=== PATIENT | male | born 1945 | race Caucasian/White ===

== ENCOUNTER 2022-08-13 11:06 | Outpatient (CLI) | payer MEDICARE, BC, SELFPAY | END 2022-08-13 11:07 | disposition home or self-care (01) | PROVIDERS: PCP Family Medicine; Visit Provider Family Medicine | DX: E11.9 Type 2 diabetes mellitus without complications (principal); I10 Essential (primary) hypertension; E78.5 Hyperlipidemia, unspecified; F41.9 Anxiety disorder, unspecified; E66.9 Obesity, unspecified; Z12.5 Encounter for screening for malignant neoplasm of prostate; Z71.89 Other specified counseling | CPT/HCPCS: 80053; 80061; 82043; 82570; 84153 ==

== ENCOUNTER 2023-03-21 13:56 | Outpatient (CLI) | payer MEDICARE, BC, SELFPAY | END 2023-03-21 13:57 | disposition home or self-care (01) | LOC: NFLDREF 03-24 17:19 | PROVIDERS: PCP Family Medicine; Referring Provider Family Medicine; Visit Provider Family Medicine | DX: E11.9 Type 2 diabetes mellitus without complications (principal); E78.5 Hyperlipidemia, unspecified; F41.9 Anxiety disorder, unspecified; M54.9 Dorsalgia, unspecified; Z98.1 Arthrodesis status; Z23 Encounter for immunization; K21.9 Gastro-esophageal reflux disease without esophagitis | CPT/HCPCS: 80048; 80061 ==

== ENCOUNTER 2023-04-22 14:45 | Outpatient (RCR) | payer MEDICARE, BC, SELFPAY ==
--- NOTE | 2023-03-26 14:25 | PT.OPE ---
PT [facility] Outpatient Eval PT [facility] Outpatient Eval Start: 03/26/23 12:36 Freq: Status: Active Protocol: Document 03/26/23 12:36 LSL (Rec: 03/26/23 14:22 LSL [id number]) E-signed By Fozia Dugan PT Physical Therapy Outpatient Evaluation Insurance Information Recert Due Date 06/14/23 Insurance Name Medicare B,Blue Cross/Blue Shield Medical Diagnosis back pain Treating Diagnosis weakness, pain, impaired balance Referring MD Keith Subjective Subjective Pt. reports over the past 1-2 years he's been having aching in the low back, although within the past 6 months began to have sciatica into L leg to posterior knee. Occurs more when I am upright walking, bending or standing in place. This past weekend I was doing repeated stairs and it really triggered the pain that evening and into the night. Avoiding those activities decreases pain and when I was flared up Saturday I took a couple methyl prednisone to help decrease pain. I had them left over from past issues. 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 Pain Comments 1-2/10 best, 8-9/10 worst Date of Last Physician Visit 03/25/23 Current Work Status Retired Preferred Name Omari Precautions Treatment Precautions/Contraindications history of Lumbar fusion 2019 L3-5 (Barrie Maldonado MD), broke hip December a couple years ago and was treated with immobilization, cervical fusion summer 2018 Weight Bearing Status Full Weight Bearing Therapy Limitations/Systems Review Cognition Objective Range of Motion AROM flexion 75%, extension 15 % with L LB into glut pain, B LF 15% PROM B SKC WNL without pain, DKC deferred due to body type Strength Trunk - upper abdominals 3/5 with L HS pain, deferred further testing, lower abdominals 1/5, extensors LE - L DF 4/5, L hip extension 4/5, R 5/5, L hip abduction 4 +/5, R 4/5 in available ROM however unable to lift from neutral independently Palpation L glut med and piriformis negative, tender and swollen L L5-S1 Balance & Gait hip ER, midfoot strike with slight LOB on turns Balance - B impaired SLB with 2-5 second ability with light to moderate UE assist Posture decreased lordosis, L laterally flexed Sensation/Reflexes Reflexes L patellar 1/3, all others B absent SLR B negative Other/Pertinent Objective BP - home unit 130/95, clinic unit 141/91 Functional Test Performed & Score bridge - able to complete with some discomfort L LB Assessment Assessment/Impression Pt. is a 77 y/o male who presents with L5 sciatica with mild swelling about L L5-S1, decreased ROM, weakness in the posterior hip and impaired balance. Additionally he has some difficulty multi-tasking and his processing seems a bit slow. 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 He will benefit from PT to learn a good HEP, improve his strength and mobility with therex, improve his balance through NM re-ed, and we will use a combination of manual therapy and modalities to assist with alleviation of pain and swelling. Primary Functional Limitations balance, turning while ambulating, stairs, transitional movements, prolonged walking/standing Plan of Care Rehabilitation Potential Good Physical Therapy Goals SHORT TERM GOALS: (3-4 weeks) 1. Pt. to report decreased pain into the left leg in either distance or intensity. 2. Pt. to have less palpable swelling L L5-S1. 3. Pt. able to complete bridge with pain less than 2/10. BUILDING CONSULTANT GOALS: (4-12 weeks) 1. Pt. to have 5/5 glut strength to improve tolerance to standing and stairs. 2. Pt. to demonstrate improved SLB to 10+ seconds. 3. Pt. able to turn without LOB at normal gait speed. 4. Pt. able to walk for 30' without pain increasing from baseline. Coordination/Communication With Referral Source Treatment Plan/Direct Interventions Electrical Stimulation,Joint Mobilization,Manual Therapy, Neuromuscular Re-ed,Self-Care/ Home Management,Therapeutic Exercises Frequency/Duration 2x/week 4 weeks then reassess Patient Will Be Discharged From Therapy Completion of LTG(s) Evaluation Billing Untimed Code Treatment Minutes 40 Complexity Moderate Certification Information Initial Certification Date 03/26/23 Ending Certification Date 06/14/23 Provider Signature Shows Agreement With POC & Medical Necessity Physician Signature & Date Requested Please Sign/Date Here Physician Comment/Change : Physician NPI Number #
== END 2023-06-26 07:43 | disposition home or self-care (01) ==
PROVIDERS: PCP Family Medicine; Visit Provider Family Medicine
DX: M54.9 Dorsalgia, unspecified (principal); Z98.1 Arthrodesis status; Z51.89 Encounter for other specified aftercare
CPT/HCPCS: 97110; 97140; 97162

== ENCOUNTER 2023-05-10 13:22 | Outpatient (CLI) | payer MEDICARE, BC, SELFPAY ==
--- NOTE | 2023-05-10 13:45 | CRLHL7_ITS ---
For Patients: As a result of the Century Cures Act, medical imaging exams and procedure reports are released immediately into your electronic medical record. You may view this report before your referring provider. If you have questions, please contact your health care provider. INDICATION: Low back pain. TECHNIQUE : Lumbar spine MRI without contrast. The following sequences were obtained: Sagittal T1, T2 weighted and STIR sequences. Axial T1 and T2 weighted sequences. COMPARISON: Lumbar spine radiographs from 11/19/2022. FINDINGS : Five lumbar type vertebral bodies, with the last fully formed disc space designated as L5-S1. Accentuated lower lumbar lordosis. Mild upper lumbar levoconvex curvature. Interbody osseous fusion at L3-4/L4-5. Dorsal lateral instrumented fusion also at L3 through L5. Decompressive posterior element resections at L3 through S1. No acute fractures. L4 hemangioma. Lower cord/conus signal is normal. The conus terminates at a normal location. No intradural lesion. No extraspinal soft tissue abnormalities. Discs/Endplates: Advanced disc height loss/disc desiccation and endplate remodeling at L1-2 centrally/on the right and L2-3 on the right. Mild to moderate disc height loss and disc desiccation elsewhere. Findings at individual levels as follows: T11-12: Trace retrolisthesis. Mild disc bulge with overlying osteophytic ridging, asymmetric to the right. Bilateral low-grade facet arthrosis. No spinal canal or neural foraminal stenosis. T12-L1: Trace anterolisthesis. Mild disc bulge. Bilateral facet arthrosis. Mild spinal canal stenosis and mild to moderate neural foraminal stenosis. No left neural foraminal stenosis. L1-2: Trace anterolisthesis. Mild disc bulge with overlying osteophytic ridging, asymmetric to the right. A superimposed 4 millimeter right dorsal lateral protrusion/osteophyte slightly impinges the traversing right L2 nerve root. Bilateral low-grade facet arthrosis. Mild right neural foraminal stenosis. No left neural foraminal stenosis or spinal canal stenosis. L2-3: Mild disc bulge with a superimposed shallow left central disc extrusion with slight cranial migration. Bilateral facet arthrosis. Mild spinal canal stenosis. No neural foraminal stenosis. L3-4: Postop changes. Spinal canal is decompressed dorsally. Residual dorsal disc osteophyte minimally flattens the thecal sac. Bilateral facet arthrosis with fusion along the facets. Mild bilateral foraminal stenosis. L4-5: Postop changes. Spinal canal is decompressed dorsally. Trace retrolisthesis. Residual dorsal disc osteophyte minimally flattens the thecal sac. Bilateral facet arthrosis. Mild right and moderate left neural foraminal stenosis. L5-S1: Trace retrolisthesis. Mild disc bulge with overlying osteophytic ridging, asymmetric to the left. Bilateral facet arthrosis with small facet joint effusions. Mild to moderate right and moderately advanced left neural foraminal stenosis with mild impingement of the exiting left L5 nerve root. No spinal canal stenosis. Imaged SI joints: Bilateral arthrosis. Imaged sacrum: Within normal limits. IMPRESSION: 1. Postsurgical changes of L3 through L5 combined interbody/dorsal lateral fusion and decompressive posterior element resections. Spinal canal is patent at the operative levels. 2. At L1-2, a right dorsal lateral protrusion/osteophyte slightly impinges the traversing right L2 nerve root. 3. At L4-5, moderate left neural foraminal stenosis. 4. At L5-S1, moderately advanced left neural foraminal stenosis with mild impingement of the exiting left L5 nerve root. 5. Mild upper lumbar degenerative levoconvex curvature. Dictated by Thomas Espinoza MD @ 05/13/2023 9:29:09 AM (Electronically Signed)
== END 2023-05-10 13:23 | disposition home or self-care (01) ==
PROVIDERS: PCP Family Medicine; Visit Provider Family Medicine
DX: M54.10 Radiculopathy, site unspecified (principal); M51.26 Other intervertebral disc displacement, lumbar region; M48.07 Spinal stenosis, lumbosacral region; Z98.1 Arthrodesis status
CPT/HCPCS: 72148

== ENCOUNTER 2023-05-16 11:46 | Outpatient (CLI) | payer MEDICARE, BC, SELFPAY | END 2023-05-16 11:47 | disposition home or self-care (01) | LOC: LKVREF 11:47 | PROVIDERS: PCP Family Medicine; Visit Provider Family Medicine | DX: R53.83 Other fatigue (principal); I10 Essential (primary) hypertension | CPT/HCPCS: 84270; 84402; 84403 ==

== ENCOUNTER 2023-07-16 09:49 | Outpatient (CLI) | payer MEDICARE, BC, SELFPAY | END 2023-07-16 09:50 | disposition home or self-care (01) | LOC: INJ CL 09:50 | PROVIDERS: PCP Family Medicine; Visit Provider Family Medicine | DX: M54.16 Radiculopathy, lumbar region (principal); M47.816 Spondylosis without myelopathy or radiculopathy, lumbar region | CPT/HCPCS: 64483; J1100; Q9966 ==

== ENCOUNTER 2023-08-20 10:41 | Outpatient (CLI) | payer MEDICARE, BC, SELFPAY | END 2023-08-20 10:42 | disposition home or self-care (01) | LOC: INJ CL 10:41 | PROVIDERS: PCP Family Medicine; Visit Provider Family Medicine | DX: M47.816 Spondylosis without myelopathy or radiculopathy, lumbar region (principal) | CPT/HCPCS: 64493; J0702; Q9966 ==

== ENCOUNTER 2023-11-22 09:52 | Outpatient (CLI) | payer MEDICARE, BC, SELFPAY ==
--- OUTSIDE RECORDS SUMMARY | 2023-11-22 09:58 | XMS_ITS | Clinical Summary ---
Author Organization [facility] Address [place], [place] [address] Care Team Providers Care Online Communications Specialist Name Role Phone Saba Jackson MD Primary Care Provider [phone] Allergies No known active allergies Medications Medication Sig Dispensed Refills Start Date End Date Status sertraline (ZOLOFT) 100 mg tablet Take 1 1/2 tabs orally once a day 0 10/01/2012 Active atorvastatin (LIPITOR) 10 mg tablet Take 1 tablet by mouth once daily. 0 10/01/2012 Active tamsulosin (FLOMAX) 0.4 mg capsule Take 1 capsule by mouth once daily after a meal. 0 10/01/2012 Active buPROPion (WELLBUTRIN SR) 100 mg Sustained-Release tablet Take one tablet by mouth every day 0 10/01/2012 Active lisinopril (PRINIVIL; ZESTRIL) 20 mg tablet Take 1 tablet by mouth once daily. 0 10/01/2012 Active rizatriptan (MAXALT) 10 mg tablet Take 1 tablet by mouth every 2 hours if needed for Migraine. Max dose: 30mg per 24 hrs. 0 10/01/2012 Active omeprazole (PRILOSEC) 20 mg Delayed-Release capsule Take 1 capsule by mouth once daily. 0 01/02/2018 Active finasteride (PROSCAR) 5 mg tablet Take 5 mg by mouth every morning. Active sennosides-docusat e, 8.6-50 mg, (SENNA LAXATIVE-STOOL SOFTENER) 8.6-50 mg tablet Take 1 tablet by mouth 2 times daily. Active WalkerIndications: Open displaced fracture of right acetabulum with routine healing, unspecified portion of acetabulum, subsequent encounter Rolling Walker for home use. 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 30 tablet 01/05/2018 Active aspirin-acetaminop hen-caffeine, 250-250-65 mg, (EXCEDRIN) 250-250-65 mg tablet Max acetaminophen dose: 4000mg in 24 hrs. 0 01/06/2018 Active oxyCODONE (ROXICODONE) 5 mg immediate release tabletIndications: Pain Take 1-2 tablets by mouth every 4 hours if needed 15 tablet 01/06/2018 Active enoxaparin (LOVENOX) 40 mg/0.4 mL injectionIndicatio ns:Closed fracture of right hip with routine healing, subsequent encounter Inject 40 mg subcutaneous once daily. 17 Syringe 01/06/2018 Active wheelchairIndicati ons:Closed nondisplaced fracture of right acetabulum with routine healing, unspecified portion of acetabulum, subsequent encounter,Gait instability Wheelchair: Standard with leg rests: (Swing away) and seat cushion. Length of need: 99 months 1 Device 01/06/2018 Active methylPREDNISolone (Medrol, Jose Daniel,) 4 mg tabletIndications: Lumbar radiculopathy Take by mouth as instructed per packaging. 21 Tablet 10/17/2023 Active HYDROcodone-acetam inophen ([place]) (5-325 mg/tablet)Indicati ons:Lumbar radiculopathy Take 1 Tablet by mouth 3 times daily if needed for Pain. Max acetaminophen dose: 4000mg in 24 hrs. 24 Tablet 10/30/2023 Active oxyCODONE (ROXICODONE) 5 mg immediate release tabletIndications: Lumbar radiculopathy,Lumb ar facet arthropathy,S/P lumbar fusion,Lumbar foraminal stenosis Take 1 Tablet (5 mg) by mouth every 4 hours if needed for Pain. 36 Tablet 11/18/2023 Active HYDROcodone-acetam inophen ([place]) (5-325 mg/tablet)Indicati ons:Lumbar radiculopathy Take 1 Tablet by mouth 3 times daily if needed for Pain. Max acetaminophen dose: 4000mg in 24 hrs. 24 Tablet 10/11/2023 10/30/19 24 Discontinu ed(Reorder (E-cancel not sent)) oxyCODONE (ROXICODONE) 5 mg immediate release tabletIndications: Lumbar radiculopathy,Lumb ar facet arthropathy,S/P lumbar fusion,Lumbar foraminal stenosis Take 1 Tablet (5 mg) by mouth every 4 hours if needed for Pain. 36 Tablet 11/06/2023 11/18/19 24 Discontinu ed(Reorder (E-cancel not sent)) Active Problems Problem Noted Date Diagnosed Date Chronic right-sided low back pain without sciati ca 01/06/2018 ACP (advance care planning) 01/05/2018 Overview: Patient has identified Health Care Agent(s): No Add Health Care Agents: No Patient has Advance Care Plan Documents (Health Care Directive, POLST): Yes Advance Care Plan Documents: POLST Form Patient has identified Specific Treatment Preferences: Yes How have preferences been verified: POLST Specific Treatment Preferences: a.) Code Status: DNR/ Do Not Attempt Resuscitation - Allow a Natural b.) Goals of Treatment: iii. Comfort-Focused Treatment (Allow Natural ): Relieve pain and suffering through the use of any medication by any route, positioning, wound care and other measures. Use oxygen, suction and manual treatment of airway obstruction as needed for comfort. Patient prefers no transfer to hospital for life-sustaining treatments. Transfer if comfort needs cannot be met in current location. TREATMENT PLAN: Maximize comfort through symptom management. Closed nondisplaced fracture of right acetabulum 01/03/2018 Hypertension 01/03/2018 Benign prostatic hyperplasia 01/03/2018 DILAN (obstructive sleep apnea) 01/03/2018 Hyperlipidemia 01/03/2018 Fracture of right acetabulum 01/03/2018 Encounters Date Type Department Care Team Description 11/18/2023 Refill [facility] [address] [place] [address] Andrew Wilson MD Need Meds (oxyCODONE (ROXICODONE) 5 mg) 11/14/2023 2:00 PM CDT Office Visit [address] [address] Andrew Wilson MD Musculoskeletal Problem (Follow up back pain ) 11/14/2023 Travel 11/14/[address] [address] Andrew Wilson MD Questions 11/14/2023 Nurse Triage [address] [address] Andrew Wilson MD Back Pain 11/08/[address] [address] Andrew Wilson MD BACK PAIN - LEFT LEG PAIN 11/06/[address] [address] Andrew Wilson MD Appointment Request 11/04/[address] [address] Andrew Wilson MD Follow Up ([facility] results and medication ) 10/30/[address] [address] Andrew Wilson MD Refill Request 10/23/2023 Orders Only [facility] Scanner 1 scan: (1-Ord) [facility], BILAT L5-S1 FACET JOINTS INJECTION, 10/23/2023 10/16/[address] [address] Andrew Wilson MD Medication Management 10/15/2023 Orders Only [facility] Scanner 1 scan: (1-Ord) [facility], LUMBAR BLOCKADE, BILATERAL L4 AND L5 MEDICAL BRANCH NERVES RT AND LT L5-S1 FACETS, 10/15/2023 10/11/2023 Refill [facility] [address] [place] [address] Andrew Wilson MD Medication Management 10/07/2023 1:00 PM CDT Office Visit [facility] [address] [place] [address] Andrew Wilson MD Musculoskeletal Problem (Follow up back pain had L5-S1 facet injections last on 08/20/23) 10/07/2023 Travel 10/01/2023 Orders Only [facility] Scanner 1 scan: (1-Ord) [facility], ONE LEVEL LUMBAR FACET NERVE BLOCKADE, 10/01/2023 09/26/2023 Refill [facility] [address] [place] [address] Andrew Wilson MD Refill Request (HYDROcodone-acetaminoph en ([place]) (5-325 mg/tablet)) 09/11/2023 Telephone [facility] [address] [place] [address] Andrew Wilson MD Questions from Last 3 Months Family History Medical History Relation Name Comments Heart Disease Father saba CHF Other Mother Jenn Alzheimer's Relation Name Status Comments Brother 1 christi Alive Brother 2 saba Alive Father saba (Age 93) Mother Jenn (Age 82) Social History Tobacco Use Types Packs/Day Years Used Date Smoking Tobacco: Former Cigarettes Q uit: 06/03/1974 Alcohol Use Standard Drinks/Week Comments No 0 (1 standard drink = 0.6 oz pur e alcohol) Social Connections Answer Date Recorded Frequency of Communication with Friends and Fami ly Not on file 06/26/2023 Sex and Gender Information Value Date Recorded Sex Assigned at Not on file Gender Identity Not on file Sexual Orientation Not on file Obstetrics History Last Filed Vital Signs Vital Sign Reading Time Taken Comments Blood Pressure 156/102 11/14/2023 2:04 PM CDT Pulse 115 11/14/2023 2:04 PM CDT Temperature 36.7 ??C (98 ??F) 11/14/2023 2:04 PM CDT Respiratory Rate 18 05/15/2015 11:00 AM PHARMACY AIDE Oxygen Saturation 97% 11/14/2023 2:04 PM CDT Inhaled Oxygen Concentration - - Weight 90.7 kg (200 lb) 05/15/2015 10:26 AM PHARMACY AIDE Height 180.3 cm (5' 11) 05/15/2015 10:26 AM PHARMACY AIDE Body Mass Index 27.89 05/15/2015 10:26 AM PHARMACY AIDE Plan of Treatment Upcoming Encounters Date Type Department Care Team (Late st Contact Info) Description 11/22/2023 10:40 AM CDT Office Visit [facility] [address] [place] [address] Andrew Wilson MD [address] [place] [address] Arrived 12/06/2023 1:15 PM CDT Ancillary Procedure [facility] [address] [place] [address] 01/09/2024 1:00 PM CDT Office Visit [facility] [address] [place] [address] Andrew Wilson MD [address] [place] [address] Health Maintenance Due Date Last Done Comments Tdap 12/27/1956 Depression screening for age 12+ 1956 BMI (ht and wt on same day) for age 18+ 1962 Tetanus booster 1964 Zoster (shingles) series for age 50+ (1 of 2) 1994 Medicare Wellness for age 65+ 2009 Pneumococcal series for age 65+ (1 of 1 - PCV) 2009 COVID-19 vaccine series ( season) 2023 03/25/2023, 03/14/2022, 10/11/2021, Additional history exists Influenza for age 65+ 02/02/2024 Hepatitis C screening for ag e 18-79 Completed 01/06/2018 Procedures Procedure Name Priority Date/Time Associated Diagnosis Comments AMB EPIDURAL STEROID INJECTION Routine 11/22/2023 8:00 AM CDT Lumbar radiculopathy Lumbar facet arthropathy S/P lumbar fusion Lumbar foraminal stenosis SCAN-OPERATIVE/PRO CEDURE REPORT 10/23/2023 12:00 AM CDT SCAN-OPERATIVE/PRO CEDURE REPORT 10/15/2023 12:00 AM CDT SCAN-OPERATIVE/PRO CEDURE REPORT 10/01/2023 12:00 AM CDT ANTI HCV Today 01/06/2018 3:38 PM CDT Encounter for person encountering health services from Last 3 Months or Most Recently Relevant to Health Maintenance Results * SCAN-OPERATIVE/PROCEDURE REPORT (10/23/2023 12:00 AM CDT) Scanner OTHER * SCAN-OPERATIVE/PROCEDURE REPORT (10/15/2023 12:00 AM CDT) Scanner OTHER * SCAN-OPERATIVE/PROCEDURE REPORT (10/01/2023 12:00 AM CDT) Scanner OTHER * ANTI HCV (01/06/2018 3:38 PM CDT) HEPATITIS C ANTIBODY Non-React glo Non-React glo 01/06/2018 8:19 PM CDT [facility] Comment:Antibodies to HCV no t detected; does not exclude the possibility of exposure to HCV. Blood BLOOD SPECIMEN / Unknown Venipuncture / Unknown 01/06/2018 3:38 PM CDT 01/06/2018 3:39 PM CDT Margarette Marrero MD SEND OUTS [facility] [address] [place] [address], from Last 3 Months or Most Recently Relevant to Health Maintenance Care Teams Online Communications Specialist Relationship Specialty Start Date End Date Saba Jackson MD [address] [place] [address] PCP - General Family Practice 10/01/12
--- OUTSIDE RECORDS SUMMARY | 2023-11-22 09:59 | XMS_ITS | Clinical Summary ---
Author Organization [place] Address [address] [facility] [place] [address] Care Team Providers Care Assistant Associate Professor Name Role Phone Kely, Bronson Delano Primary Care Provider + [phone] Allergies No known active allergies Medications Medication Sig Dispensed Refills Start Date End Date Status metFORMIN (GLUCOPHAGE-XR) 500 MG 24 hr tablet Take 500 mg by mouth daily (with lunch) Active gabapentin (NEURONTIN) 100 MG capsule Take 100 mg by mouth 3 times daily Active buPROPion (WELLBUTRIN SR) 150 MG 12 hr tablet Take 150 mg by mouth every morning Active finasteride (PROSCAR) 5 MG tablet Take 5 mg by mouth daily Active atorvastatin (LIPITOR) 10 MG tablet Take 10 mg by mouth daily Active rizatriptan (MAXALT) 10 MG tablet Take 10 mg by mouth daily as needed for migraine Active sertraline (ZOLOFT) 100 MG tablet Take 100 mg by mouth 2 times daily Active lisinopril (ZESTRIL) 10 MG tablet Take 10 mg by mouth daily Active ALPRAZolam (XANAX) 0.5 MG tablet Take 0.5 mg by mouth 2 times daily as needed for anxiety Active tamsulosin (FLOMAX) 0.4 MG capsule Take 0.4 mg by mouth daily Active acetaminophen-caffein e (EXCEDRIN TENSION HEADACHE) 500-65 MG TABS Take 2 tablets by mouth 3 times daily as needed for mild pain Active multivitamin w/minerals (MULTI-VITAMIN) tablet Take 1 tablet by mouth daily (with lunch) Active docusate sodium (COLACE) 100 MG capsule Take 300 mg by mouth every evening (3 X 100 mg) Active oxyCODONE (ROXICODONE) 5 MG tabletIndications:Spi nal stenosis, lumbar region, with neurogenic claudication Take 1-2 tablets (5-10 mg) by mouth every 4 hours as needed 30 tablet 03/04/2020 Active Active Problems Problem Noted Date Diagnosed Date Spinal stenosis, 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, with neurogenic claudication 03/01/2020 Social History Tobacco Use Types Packs/Day Years Used Date Smoking Tobacco: Never Smokeless Tobacco: Never Alcohol Use Standard Drinks/Week Comments Not Currently 0 (1 standard drink = 0.6 oz pur e alcohol) Adolescent Education Answer Date Record ed Getting School Help Needed Not on file 02/23 Sex and Gender Information Value Date Recorded Sex Assigned at Not on file Gender Identity Not on file Sexual Orientation Not on file Last Filed Vital Signs Vital Sign Reading Time Taken Comments Blood Pressure 120/72 03/04/2020 7:49 AM CDT Pulse 89 03/04/2020 7:49 AM CDT Temperature 36.7 ??C (98 ??F) 03/04/2020 7:49 AM CDT Respiratory Rate 16 03/04/2020 7:49 AM CDT Oxygen Saturation 92% 03/04/2020 7:49 AM CDT Inhaled Oxygen Concentration - - Weight - - Height 177.8 cm (5' 10) 03/01/2020 10:01 AM CDT Body Mass Index - - Plan of Treatment Health Maintenance Due Date Last Done Comments ADVANCE CARE PLANNING 1944 ANNUAL REVIEW OF HM ORDERS 1944 HEPATITIS C SCREENING 1962 RSV VACCINE ( & 60+) (1 - 1-dose 60+ series) 2004 FALL RISK ASSESSMENT 2009 MEDICARE ANNUAL WELLNESS VISIT 2009 DTAP/TDAP/TD IMMUNIZATION (1 - Tdap) 12/31/2009 12/30/2009, 01/26/2000 ZOSTER IMMUNIZATION (2 of 3) 07/27/2010 06/01/2010 LIPID 08/15/2019 08/14/2018, 08/02, 10/10/2016, Additional history exists COVID-19 Vaccine ( - 2022- season) 2023 GLUCOSE 03/02/2023 03/02/2020, 02/02, 03/01/2020, Additional history exists PHQ-2 (once per calendar year) 2023 INFLUENZA VACCINE (Season Ended) 2024 02/27/2019, 04/01/2014, 04/09/2013, Additional history exists Pneumococcal Vaccine: 65+ Years Completed 10/18/2014, 08/26/2014, 12/30/2009 HPV IMMUNIZATION Aged Out No longer e ligible based on patient's age to complete this topic IPV IMMUNIZATION Aged Out No longer e ligible based on patient's age to complete this topic MENINGITIS IMMUNIZATION Aged Out No l onger eligible based on patient's age to complete this topic RSV MONOCLONAL ANTIBODY Aged Out No l onger eligible based on patient's age to complete this topic Medical Devices Implanted Type Area Assistant City Attorney Device Identifier Shelf Expiration Date Model / Serial / Lot Graft Bone Putty Dbx 10ml [id number] Implanted:Qt y: 1 on 03/01/2020 by Barrie Maldonado MD at [facility] Bone/Tissue /Biologic N/A: Spine Lumbar MUSCULOSKELETAL MASON 05/24/2021 [id number] / [id number] / Imp Scr Syn Canc Cortic Lp 6x45mm W/T25 Stardrive [id number] Implanted:Qt y: 5 on 03/01/2020 by Barrie Maldonado MD at [facility] Metallic Hardware/An chor N/A: Spine Lumbar SYNTHES-STRATEC 04.632.64 5 / / LOAD 42 05 28SEP 2020 Imp Cap Syn Spinal Fixed Locking 1-Step Matrix Ns 04.632.000 Implanted:Qt y: 5 on 03/01/2020 by Barrie Maldonado MD at [facility] Metallic Hardware/An chor N/A: Spine Lumbar SYNTHES-STRATEC 04.632.00 0 / / LOAD 42 05 28SEP 2020 Adolfo Curved 5.5x60mm Implanted:Qt y: 2 on 03/01/2020 by Barrie Maldonado MD at [facility] Metallic Hardware/An chor N/A: Spine Lumbar SYNTHES-STRATEC 04.636.06 0 / 636.06 0 / 28SEP 2019 42 05 Procedures Procedure Name Priority Date/Time Associated Diagnosis Comments GLUCOSE BY METER Routine 03/02/2020 6:12 AM CDT LIPID PROFILE Routine 08/14/2018 12:49 PM CDT from Last 3 Months or Most Recently Relevant to Health Maintenance Results * (ABNORMAL) Glucose by meter (03/02/2020 6:12 AM CDT) Glucose 194(H) 70 - 99 mg/dL 03/02/2020 6:24 AM CDT POINT OF CARE TEST, GLUCOSE 03/02/2020 6:12 AM CDT 03/02/2020 6:24 AM CDT Barrie Maldonado MD LAB - [facility] POCT POINT OF CARE TEST, GLUCOSE * Lipid Profile (08/14/2018 12:49 PM CDT) Cholesterol 166 <=199 mg/dL 08/14/2018 6:32 PM CDT [facility] Triglycerides 105 <=149 mg/dL 08/14/2018 6:32 PM CDT [facility] Direct Measure HDL 52 >=40 mg/dL 08/14/2018 6:32 PM CDT [facility] LDL Cholesterol Calculated 93 <=129 mg/dL 08/14/2018 6:32 PM CDT [facility] Patient Fasting > 8hrs? Unknown 08/14/2018 6:32 PM CDT [facility] Blood specimen (specimen) 08/14/2018 12:49 PM CDT 08/14/2018 5:41 PM CDT Salvador Jackson MD LAB - BLOOD O RDERABLES [facility] [address] [place] [address], [facility] [address] [place] [address] from Last 3 Months or Most Recently Relevant to Health Maintenance Advance Directives For more information, please contact: [phone] * Full Code (Latest Code Status on File) Date Activated Date Inactivated Comments 03/01/2020 2:28 PM 03/04/2020 3:26 PM All basic an d advanced life-sustaining interventions are performed as appropriate Question Answer Comments Code status determined by: Discussion with mayra lambert/ legal decision maker Care Teams Assistant Associate Professor Relationship Specialty Start Date End Date Bronson Edge [address] [address] PCP - General Family Practice 02/22/20
--- OUTSIDE RECORDS SUMMARY | 2023-11-22 09:59 | XMS_ITS | Referral Summary ---
Author Organization [place] Address [address] [facility] [place] [address] Care Team Providers Care Movers Name Role Phone Kely Bronson Wick Primary Care Provider + [phone] Allergies No known active allergies Medications Medication [...] Mass Index - - Plan of Treatment Not on file Medical Devices Implanted Type Area Distribution District Supervisor Device Identifier Shelf Expiration Date Model / Serial / Lot Graft Bone Putty Dbx 10ml [id number] Implanted:Qt y: 1 on 03/01/2020 by Barrie Maldonado MD at [facility] Bone/Tissue /Biologic N/A: Spine Lumbar MUSCULOSKELETAL MASON 05/24/2021 [id number] / [id number] / Imp Scr Syn Canc Cortic Lp 6x45mm W/T25 Stardrive .645 Implanted:Qt y: 5 on 03/01/2020 by Barrie Maldonado MD at [facility] Metallic Hardware/An chor N/A: Spine Lumbar SYNTHES-STRATEC .64 5 / / LOAD 42 05 28SEP 2019 Imp Cap Syn Spinal Fixed Locking 1-Step Matrix Ns .000 Implanted:Qt y: 5 on 03/01/2020 by Barrie Maldonado MD at [facility] Metallic Hardware/An chor N/A: Spine Lumbar SYNTHES-STRATEC 632.00 0 / / LOAD 42 05 2019 Adolfo Curved 5.5x60mm Implanted:Qt y: 2 on 03/01/2020 by Barrie Maldonado MD at [facility] Metallic Hardware/An chor N/A: Spine Lumbar SYNTHES-STRATEC 636. 0 / 636.06 0 / SEP 2019 42 05 Procedures Procedure Name Priority [...] 03/02/2020 6:24 AM CDT Barrie Maldonado MD [facility] POCT POINT OF CARE TEST, GLUCOSE * Lipid Profile (08/14/2018 12:49 PM CDT) Cholesterol 166 <=199 mg/dL 08/14/2018 6:32 PM CDT [facility] Triglycerides 105 <=149 mg/dL 08/14/2018 6:32 PM CDT [facility] Direct Measure HDL 52 >=40 mg/dL 08/14/2018 6:32 PM CDT [facility] LDL Cholesterol Calculated 93 <=129 mg/dL 08/14/2018 6:32 PM CDT [facility] Patient Fasting > 8hrs? Unknown 08/14/2018 6:32 PM CDT [facility] Blood specimen (specimen) 08/14/2018 12:49 PM CDT 08/14/2018 5:41 PM CDT Salvador Jackson MD LAB - BLOOD O RDERABLES [facility] [address] [place] [address], [place] [facility] [address] [place] [address] from Last 3 Months or Most Recently Relevant to Health Maintenance Advance Directives For more information, please contact: [phone] * Full Code (Latest Code Status on File) Date Activated Date Inactivated Comments 03/01/2020 2:28 PM 03/04/2020 3:26 PM All basic an d advanced life-sustaining interventions are performed as appropriate Question Answer Comments Code status determined by: Discussion with mayra lambert/ legal decision maker Care Teams Movers Relationship Specialty Start Date End Date Bronson Edge [address] [address] PCP - General Family Practice 02/22/20
== END 2023-11-22 09:53 | disposition home or self-care (01) ==
LOC: INJ CL 09:56
PROVIDERS: PCP Family Medicine; Visit Provider Family Medicine
DX: M54.16 Radiculopathy, lumbar region (principal); M51.36 Other intervertebral disc degeneration, lumbar region
CPT/HCPCS: 64483; J1100; Q9966

== ENCOUNTER 2024-01-09 11:04 | Outpatient (CLI) | payer MEDICARE, BC, SELFPAY ==
--- OUTSIDE RECORDS SUMMARY | 2024-01-09 11:09 | XMS_ITS | Referral Summary ---
Author Organization [place] Address [address] [facility] [place] [address] Care Team Providers Care Campus Security Officer Name Role Phone Kely Bronson Delano Primary Care Provider + [phone] Allergies No known active allergies Medications Medication [...] on file Medical Devices Implanted Type Area Instructional Systems Specialist Device Identifier Shelf Expiration Date Model / Serial / Lot Graft Bone Putty Dbx 10ml [id number] Implanted:Qt y: 1 on 03/01/2020 by Barrie Maldonado MD at [facility] Bone/Tissue /Biologic N/A: Spine Lumbar MUSCULOSKELETAL MASON 05/24/2021 [id number] / [id number] / Imp Scr Syn Canc Cortic Lp 6x45mm W/T25 Stardrive .645 Implanted:Qt y: 5 on 03/01/2020 by Barrie Maldonado MD at [facility] Metallic Hardware/An chor N/A: Spine Lumbar SYNTHES-STRATEC .64 5 / / LOAD 42 05 28SEP 2019 Imp Cap Syn Spinal Fixed Locking 1-Step Matrix Ns .000 Implanted:Qt y: 5 on 03/01/2020 by Barrie Maldonado MD at [facility] Metallic Hardware/An chor N/A: Spine Lumbar SYNTHES-STRATEC 632.00 0 / / LOAD 42 05 SEP 2019 Adolfo Curved 5.5x60mm Implanted:Qt y: 2 on 03/01/2020 by Barrie Maldonado MD at [facility] Metallic Hardware/An chor N/A: Spine Lumbar SYNTHES-STRATEC 636.06 0 / 636.06 0 / 28SEP 2019 42 05 Advance Directives For more information, please contact: [phone] * Full Code (Latest Code Status on File) Date Activated Date Inactivated Comments 03/01/2020 2:28 PM 03/04/2020 3:26 PM All basic an d advanced life-sustaining interventions are performed as appropriate Question Answer Comments Code status determined by: Discussion with mayra lambert/ legal decision maker Care Teams Campus Security Officer Relationship Specialty Start Date End Date Bronson Edge [address] [address] PCP - General Family Practice 02/22/20
--- OUTSIDE RECORDS SUMMARY | 2024-01-09 11:09 | XMS_ITS | Clinical Summary ---
Author Organization [place] Address [address] [facility] [place] [address] Care Team Providers Care Park Interpretive Ranger Name Role Phone Kely, Bronson Delano Primary Care Provider + [phone] Allergies No known active allergies Medications Medication [...] on file Medical Devices Implanted Type Area Urology Teacher Device Identifier Shelf Expiration Date Model / Serial / Lot Graft Bone Putty Dbx 10ml [id number] Implanted:Qt y: 1 on 03/01/2020 by Barrie Maldonado MD at [facility] Bone/Tissue /Biologic N/A: Spine Lumbar MUSCULOSKELETAL MASON 05/24/2021 [id number] / [id number] / Imp Scr Syn Canc Cortic Lp 6x45mm W/T25 Stardrive .645 Implanted:Qt y: 5 on 03/01/2020 by Barrie Maldonado MD at [facility] Metallic Hardware/An chor N/A: Spine Lumbar SYNTHES-STRATEC .64 5 / / LOAD 42 05 28SEP 2019 Imp Cap Syn Spinal Fixed Locking 1-Step Matrix Ns .000 Implanted:Qt y: 5 on 03/01/2020 by Barrie Maldonado MD at [facility] Metallic Hardware/An chor N/A: Spine Lumbar SYNTHES-STRATEC 632.00 0 / / LOAD 42 05 SEP 2019 Adolfo Curved 5.5x60mm Implanted:Qt y: 2 on 03/01/2020 by Barrie Maldonado MD at [facility] Metallic Hardware/An chor N/A: Spine Lumbar SYNTHES-STRATEC 636.06 0 / 636.06 0 / 28SEP 2019 42 05 Advance Directives For more information, please contact: [phone] * Full Code (Latest Code Status on File) Date Activated Date Inactivated Comments 03/01/2020 2:28 PM 03/04/2020 3:26 PM All basic an d advanced life-sustaining interventions are performed as appropriate Question Answer Comments Code status determined by: Discussion with mayra lambert/ legal decision maker Care Teams Park Interpretive Ranger Relationship Specialty Start Date End Date Bronson Edge [address] [address] PCP - General Family Practice 02/22/20
--- OUTSIDE RECORDS SUMMARY | 2024-01-09 11:09 | XMS_ITS | Clinical Summary ---
Author Organization [employer] [facility] Address [place], [place] [address] Care Team Providers Care Station Tender Name Role Phone Saba Jackson MD Primary Care Provider [phone] Allergies No known active allergies Medications Medication [...] packaging. 21 Tablet 10/17/2023 Active HYDROcodone-acetam inophen ([place]ornton) (5-325 mg/tablet)Indicati ons:Lumbar radiculopathy Take 1 Tablet by mouth 3 times daily if needed for Pain. Max acetaminophen dose: 4000mg in 24 hrs. 24 Tablet 10/30/2023 Active oxyCODONE (ROXICODONE) 5 mg immediate release tabletIndications: Lumbar radiculopathy,Lumb ar facet arthropathy,S/P lumbar fusion,Lumbar foraminal stenosis Take 1 Tablet (5 mg) by mouth every 4 hours if needed for Pain. 36 Tablet 12/30/2023 Active oxyCODONE (ROXICODONE) 5 mg immediate release tabletIndications: Lumbar radiculopathy,Lumb ar facet arthropathy,S/P lumbar fusion,Lumbar foraminal stenosis Take 1 Tablet (5 mg) by mouth every 4 hours if needed for Pain. 36 Tablet 11/18/2023 12/11/19 24 Discontinu ed(Reorder (E-cancel not sent)) oxyCODONE (ROXICODONE) 5 mg immediate release tabletIndications: Lumbar radiculopathy,Lumb ar facet arthropathy,S/P lumbar fusion,Lumbar foraminal stenosis Take 1 Tablet (5 mg) by mouth every 4 hours if needed for Pain. 36 Tablet 12/11/2023 12/30/19 24 Discontinu ed(Reorder (E-cancel not sent)) Active [...] Encounters Date Type Department Care Team Description 12/30/2023 Telephone [facility] [address] [place] [address] Andrew Wilson MD Form 12/20/2023 Telephone [facility] [address] [place] [address] Andrew Wilson MD Questions 12/16/2023 2:45 PM CDT Ancillary Procedure [facility] [address] [place] [address] 12/16/2023 Travel 12/16/2023 Orders Only [facility] [address] [place] [address] Osvaldo Sullivan MD <No scans attached> 12/11/2023 Telephone [facility] [address] [place] [address] Saba Jackson MD Results 12/11/2023 Refill [facility] [address] [place] [address] Andrew Wilson MD Refill Request 12/09/2023 11:45 AM CDT Orders Only [facility] [address] [place] [address] Lab, [facility] 12/09/2023 Travel 12/06/2023 1:15 PM CDT Ancillary Procedure [facility] [address] [address] 12/06/2023 Telephone [facility] [address] [place] [address] Andrew Wilson MD Results 12/06/2023 Travel 11/22/2023 10:40 AM CDT Office Visit [facility] at [facility] [address] [place] [address] Andrew Wilson MD Procedure (Left L5-S1 TFESI) 11/18/2023 Refill [facility] [address] [place] [address] Andrew Wilson MD Need Meds (oxyCODONE (ROXICODONE) 5 mg) 11/14/2023 2:00 PM CDT Office Visit [facility] [address] [place] [address] Andrew Wilson MD Musculoskeletal Problem (Follow up back pain ) 11/14/2023 Travel 11/14/2023 Telephone [facility] [address] [place] [address] Andrew Wilson MD Questions 11/14/2023 Nurse Triage [facility] [address] [place] [address] Andrew Wilson MD Back Pain 11/08/[address] [address] Andrew Wilson MD BACK PAIN - LEFT LEG PAIN 11/06/2023 Telephone [facility] [address] [place] [address] Andrew Wilson MD Appointment Request 11/04/2023 Telephone [facility] [address] [place] [address] Andrew Wilson MD Follow Up (rayus results and medication ) 10/30/[address] [address] Andrew Wilson MD Refill Request 10/23/2023 Orders Only [facility] Scanner 1 scan: (1-Ord) [facility], BILAT L5-S1 FACET JOINTS INJECTION, 10/23/2023 10/16/2023 Telephone [facility] [address] [place] [address] Andrew Wilson MD Medication Management 10/15/2023 Orders Only [facility] Scanner 1 scan: (1-Ord) [facility], LUMBAR BLOCKADE, BILATERAL L4 AND L5 MEDICAL BRANCH NERVES RT AND LT L5-S1 FACETS, 10/15/2023 10/11/2023 Refill [facility] [address] [place] [address] Andrew Wilson MD Medication Management from Last 3 Months Family History Medical [...] CDT Respiratory Rate 18 05/15/2015 11:00 AM DATA OPERATIONS LEADER Oxygen Saturation 97% 11/14/2023 2:04 PM CDT Inhaled Oxygen Concentration - - Weight 90.7 kg (200 lb) 05/15/2015 10:26 AM DATA OPERATIONS LEADER Height 180.3 cm (5' 11) 05/15/2015 10:26 AM DATA OPERATIONS LEADER Body Mass Index 27.89 05/15/2015 10:26 AM DATA OPERATIONS LEADER Plan of Treatment Upcoming Encounters Date Type Department Care Team (Late st Contact Info) Description 01/09/2024 1:00 PM CDT Office Visit [facility] [address] [place] [address] Andrew Wilson MD [address] [facility] [place] [address] Health Maintenance Due Date Last Done Comments Tdap 12/27/1956 Depression screening for age 12+ 1956 BMI (ht and wt on same day) for age 18+ 1962 Tetanus booster 1964 Zoster (shingles) series for age 50+ (1 of 2) 1994 Medicare Wellness for age 65+ 2009 Pneumococcal series for age 65+ (1 of 1 - PCV) 2009 COVID-19 vaccine series (2022-24 season) 2023 03/25/2023, 03/14/2022, 10/11/2021, Additional history exists Influenza for age 65+ 02/02/2024 Hepatitis C screening for ag e 18-79 Completed 01/06/2018 Procedures Procedure Name Priority Date/Time Associated Diagnosis Comments XR SPINE LUMBAR MINIMUM 4 VIEWS Routine 12/16/2023 3:03 PM CDT Lumbar pain CBC WITH AUTO DIFFERENTIAL Routine 12/09/2023 11:47 AM CDT Lumbar radiculopathy Lumbar facet arthropathy S/P lumbar fusion Lumbar foraminal stenosis BASIC METABOLIC PANEL Routine 12/09/2023 11:47 AM CDT Lumbar radiculopathy Lumbar facet arthropathy S/P lumbar fusion Lumbar foraminal stenosis CBC WITH AUTO DIFFERENTIAL Routine 12/09/2023 11:47 AM CDT Lumbar radiculopathy Lumbar facet arthropathy S/P lumbar fusion Lumbar foraminal stenosis LYME SCREEN W/REFLEX Routine 12/09/2023 11:47 AM CDT Lumbar radiculopathy Lumbar facet arthropathy S/P lumbar fusion Lumbar foraminal stenosis C-REACTIVE PROTEIN Routine 12/09/2023 11 :47 AM CDT Lumbar radiculopathy Lumbar facet arthropathy S/P lumbar fusion Lumbar foraminal stenosis SEDIMENTATION RATE Routine 12/09/2023 11 :47 AM CDT Lumbar radiculopathy Lumbar facet arthropathy S/P lumbar fusion Lumbar foraminal stenosis MR SPINE LUMBAR WWO Routine 12/06/2023 1 :30 PM CDT Lumbosacral radiculopathy at L5 Lumbar foraminal stenosis Lumbar facet arthropathy S/P lumbar fusion AMB EPIDURAL STEROID INJECTION Routine 11/22/2023 12:00 AM CDT Lumbar radiculopathy Lumbar facet arthropathy S/P lumbar fusion Lumbar foraminal stenosis SCAN-OPERATIVE/PROCED URE REPORT 10/23/2023 12:00 AM CDT SCAN-OPERATIVE/PROCED URE REPORT 10/15/2023 12:00 AM CDT ANTI HCV Today 01/06/2018 3:38 PM CDT Encounter for person encountering health services from Last 3 Months or Most Recently Relevant to Health Maintenance Results * XR SPINE LUMBAR MINIMUM 4 VIEWS (12/16/2023 3:03 PM CDT) Anatomical Region Laterality Modality Spine, LUMBAR SPINE Digital Radi ography 12/16/2023 6:31 PM CDT Narrative 12/16/2023 6:31 PM CDT For Patients: ??As a result of the Cures Act, medical imaging exams and procedure reports are released immediately into your electronic medical record. ??You may view this report before your referring provider. ??If you have questions, please contact your health care provider. INDICATION: Lumbar pain TECHNIQUE: Four views lumbar spine FINDINGS/IMPRESSION: Levoconvex curvature lumbar spine. L3-L5 posterior spinal fusion. No hardware complications reversal of the normal lumbar lordosis. Diffuse advanced disc space narrowing osteophytic changes. No instability seen on flexion or extension. No acute fractures. Dictated by Emma Shepherd MD @ 12/16/2023 6:31:03 PM (Electronically Signed) Procedure Note Emma Shepherd MD - 12/16/2023 For Patients: As a result of the Cures Act, medical imagingexams and procedure reports are released immediately into your electronicmedical record. You may view this report before your referring provider.If you have questions, please contact your health care provider. INDICATION: Lumbar pain TECHNIQUE: Four views lumbar spine FINDINGS/IMPRESSION: Levoconvex curvature lumbar spine. L3-L5 posterior spinal fusion. Nohardware complications reversal of the normal lumbar lordosis. Diffuseadvanced disc space narrowing osteophytic changes. No instability seen onflexion or extension. No acute fractures. Dictated by Emma Shepherd MD @ 12/16/2023 6:31:03 PM (Electronically Signed) Osvaldo Sullivan MD GENERAL IMAGING * SEDIMENTATION RATE (12/09/2023 11:47 AM CDT) SEDIMENTATION RATE 17 <20 mm/hr 2023 4:02 PM CDT [facility] Blood BLOOD SPECIMEN / Unknown Venipuncture / Unknown 12/09/2023 11:47 AM CDT 12/09/2023 11:47 AM CDT Andrew Wilson MD [facility] [address] * (ABNORMAL) CBC WITH AUTO DIFFERENTIAL (12/09/2023 11:47 AM CDT) WHITE BLOOD COUNT 10.0 4.5 - 11.0 thou/cu mm 12/09/2023 11:50 AM CDT [facility] RED BLOOD COUNT 4.76 4.30 - 5.90 mil/cu mm 12/09/2023 11:50 AM CDT [facility] HEMOGLOBIN 13.7 13.5 - 17.5 g/dL 12/09/2023 11:50 AM CDT [facility] HEMATOCRIT 41.4 37.0 - 53.0 % 12/09/2023 11:50 AM CDT [facility] MCV 87 80 - 100 fL 12/09/2023 11:50 AM CDT [facility] MCH 28.8 26.0 - 34.0 pg 12/09/2023 11:50 AM CDT [facility] MCHC 33.1 32.0 - 36.0 g/dL 12/09/2023 11:50 AM CDT [facility] RDW 15.9(H) 11.5 - 15.5 % 12/09/2023 11:50 AM CDT [facility] PLATELET COUNT 239 140 - 440 thou/cu mm 12/09/2023 11:50 AM CDT [facility] MPV 10.1 6.5 - 11.0 fL 12/09/2023 11:50 AM CDT [facility] % NEUT 68.1 % 12/09/2023 11:50 AM CDT [facility] % LYMPH 22.5 % 12/09/2023 11:50 AM CDT [facility] % MONO 9.1 % 12/09/2023 11:50 AM CDT [facility] % EOS 0.0 % 12/09/2023 11:50 AM CDT [facility] % BASO 0.3 % 12/09/2023 11:50 AM CDT [facility] ABSOLUTE NEUTROPHILS 6.8 1.7 - 7.0 thou/cu mm 12/09/2023 11:50 AM CDT [facility] ABSOLUTE LYMPHOCYTES 2.3 0.9 - 2.9 thou/cu mm 12/09/2023 11:50 AM CDT [facility] ABSOLUTE MONOCYTES 0.9(H) <0.9 thou/cu mm 12/09/2023 11:50 AM CDT [facility] ABSOLUTE EOSINOPHILS 0.0 <0.5 thou/cu mm 12/09/2023 11:50 AM CDT [facility] ABSOLUTE BASOPHILS 0.0 <0.3 thou/cu mm 12/09/2023 11:50 AM CDT [facility] Blood BLOOD SPECIMEN / Unknown Venipuncture / Unknown 12/09/2023 11:47 AM CDT 12/09/2023 11:47 AM CDT Narrative [facility] - 12/09/2023 11:50 AM CDT This procedure was originally ordered at [facility]. Andrew Wilson MD HEMATOLOGY Performing Organization Address City/State/[facility] Co de Phone Number [facility] [address] [address], * LYME SCREEN W/REFLEX (12/09/2023 11:47 AM CDT) Pathologist [facility] LYME SCREEN W/REFLEX Negative Negative 12/10/2023 8:01 AM CDT [facility] Comment: No laboratory evidence of infection with B. burgdorferi (Lyme disease). Negative results may occur in patients recently infected (less than or equal to 14 days) with B. burgdorferi. If recent infection is suspected, repeat testing on a new sample collected in 7-14 days is recommended. Blood BLOOD SPECIMEN / Unknown Venipuncture / Unknown 12/09/2023 11:47 AM CDT 12/09/2023 11:47 AM CDT Andrew Wilson MD SEND OUTS Performing Organization Address City/[facility]/ZIP Co de Phone Number [facility] [address] [place] [address], * (ABNORMAL) C-REACTIVE PROTEIN (12/09/2023 11:47 AM CDT) Pathologist [facility] C-REACTIVE PROTEIN 0.5(H) <0.5 mg/dL 12/09/2023 7:50 PM CDT [facility] Blood BLOOD SPECIMEN / Unknown Venipuncture / Unknown 12/09/2023 11:47 AM CDT 12/09/2023 11:47 AM CDT Andrew Wilson MD CHEMISTRY [facility] [address] [place] [address], * (ABNORMAL) BASIC METABOLIC PANEL (12/09/2023 11:47 AM CDT) Pathologist [facility] SODIUM 133(L) 136 - 145 mmol/L 12/09/2023 7:50 PM CDT [facility] POTASSIUM 4.8 3.5 - 5.1 mmol/L 12/09/2023 7:50 PM CDT [facility] CHLORIDE 97(L) 98 - 107 mmol/L 12/09/2023 7:50 PM CDT [facility] CO2,TOTAL 24 22 - 29 mmol/L 12/09/2023 7:50 PM CDT [facility] ANION GAP 12 5 - 18 12/09/2023 7:50 PM CDT [facility] GLUCOSE 146(H) 70 - 99 mg/dL 12/09/2023 7:50 PM CDT [facility] CALCIUM 9.4 8.8 - 10.2 mg/dL 12/09/2023 7:50 PM CDT [facility] BUN 30(H) 8 - 23 mg/dL 12/09/2023 7:50 PM CDT [facility] CREATININE 1.31(H) 0.70 - 1.20 mg/dL 12/09/2023 7:50 PM CDT [facility] BUN/CREAT RATIO 23(H) 10 - 20 7:50 PM CDT [facility] eGFR 56(L) >90 mL/min/1.7 3m2 12/09/2023 7:50 PM CDT [facility] Comment:As of 2021, eG FR is calculated by the CKD-EPI creatinine equation without race adjustment. ??eGFR can be influenced by muscle mass, exercise, and diet. ??The reported eGFR is an estimation only and is only applicable if the renal function is stable. Blood BLOOD SPECIMEN / Unknown Venipuncture / Unknown 12/09/2023 11:47 AM CDT 12/09/2023 11:47 AM CDT Andrew Wilson MD [facility] [address] [place] [address], * MR SPINE LUMBAR WWO (12/06/2023 1:30 PM CDT) Anatomical Region Laterality Modality Spine, LUMBAR SPINE Magnetic Res onance 12/06/2023 2:59 PM CDT Narrative 12/06/2023 2:59 PM CDT For Patients: ??As a result of the Century Cures Act, medical imaging exams and procedure reports are released immediately into your electronic medical record. ??You may view this report before your referring provider. ??If you have questions, please contact your health care provider. Indication: Low back pain, L5 radiculopathy. Technique: Multisequence multiplanar MRI of the lumbar spine prior to and following administration of 20 cc Clariscan gadolinium based intravenous contrast. Comparison: MRI lumbar spine dated 05/10/2023. Findings: Operative changes of posterior instrumented fusion from L3-L5 with decompressive laminectomy. Mild leftward curvature of the upper lumbar spine. Grade 1 3 mm anterolisthesis at T12-L1. No T1 hypointense infiltrative lesion. The conus medullaris terminates normally at the upper L1 level. Mild Modic type 1 degenerative endplate edema at T12-L1. In addition, mild edema and postcontrast enhancement within the endplates at L5-S1 (series 7, image 12). Mild prominence and enhancement of the ventral epidural soft tissues at L5 (series 11, image 8 and series 12, image 35). T12-L1: Advanced disc desiccation and height loss. Symmetric disc bulge. Mild facet joint hypertrophy. No significant spinal canal or neural foraminal stenosis. L1-L2: Advanced disc desiccation and height loss. Symmetric disc bulge with small superimposed right foraminal disc protrusion. Moderate facet joint hypertrophy. No significant spinal canal or neural foraminal stenosis. L2-L3: Symmetric disc bulge. Moderate facet joint hypertrophy. Mild-moderate spinal canal stenosis. No significant neural foraminal narrowing. L3-L4: Posterior decompression. Patent thecal sac. No significant spinal canal or neural foraminal stenosis. L4-5: Posterior decompression. Moderate facet joint hypertrophy. Patent thecal sac. Mild bilateral neural foraminal narrowing. L5-S1: Shallow symmetric disc bulge. Advanced facet joint hypertrophy with small facet joint effusions. Moderate right and moderate-severe left neural foraminal narrowing. Impression: 1. Operative changes of posterior instrumented fusion from L3-L5 with decompressive laminectomy. 2. Mild leftward curvature of the upper lumbar spine with advanced disc desiccation and height loss at T12-L1 and L1-L2. 3. Mild edema and postcontrast enhancement within the endplates at L5-S1 not seen on prior exam, potentially degenerative in etiology, however osteomyelitis/discitis can not be entirely excluded. 4. Enlargement of the ventral epidural soft tissues at the L5 level (series 11, image 8 and series 12, image 35), potentially related to granulation tissue or venous plexus, however small volume epidural phlegmon or early abscess should also be considered. 5. At the L2-L3 superior fusion junction, slight worsening of mild-moderate spinal canal stenosis. 6. At L5-S1, advanced facet joint hypertrophy, bilateral facet joint effusions, moderate right neural foraminal narrowing, and moderate-severe left neural foraminal narrowing. Dictated by Marcial Ochoa MD @ 12/06/2023 2:59:02 PM (Electronically Signed) Procedure Note Juancarlos Ochoa MD - 12/06/2023 For Patients: As a result of the Cures Act, medical imagingexams and procedure reports are released immediately into your electronicmedical record. You may view this report before your referring provider.If you have questions, please contact your health care provider. Indication: Low back pain, L5 radiculopathy. Technique: Multisequence multiplanar MRI of the lumbar spine prior to and followingadministration of 20 cc Clariscan gadolinium based intravenous contrast. Comparison: MRI lumbar spine dated 05/10/2023. Findings: Operative changes of posterior instrumented fusion from L3-L5 withdecompressive laminectomy. Mild leftward curvature of the upper lumbarspine. Grade 1 3 mm anterolisthesis at T12-L1. No T1 hypointenseinfiltrative lesion. The conus medullaris terminates normally at the upperL1 level. Mild Modic type 1 degenerative endplate edema at T12-L1. Inaddition, mild edema and postcontrast enhancement within the endplates atL5-S1 (series 7, image 12). Mild prominence and enhancement of the ventralepidural soft tissues at L5 (series 11, image 8 and series 12, image35). T12-L1: Advanced disc desiccation and height loss. Symmetric disc bulge.Mild facet joint hypertrophy. No significant spinal canal or neuralforaminal stenosis. L1-L2: Advanced disc desiccation and height loss. Symmetric disc bulgewith small superimposed right foraminal disc protrusion. Moderate facetjoint hypertrophy. No significant spinal canal or neural foraminalstenosis. L2-L3: Symmetric disc bulge. Moderate facet joint hypertrophy.Mild-moderate spinal canal stenosis. No significant neural foraminalnarrowing. L3-L4: Posterior decompression. Patent thecal sac. No significant spinalcanal or neural foraminal stenosis. L4-5: Posterior decompression. Moderate facet joint hypertrophy. Patentthecal sac. Mild bilateral neural foraminal narrowing. L5-S1: Shallow symmetric disc bulge. Advanced facet joint hypertrophy withsmall facet joint effusions. Moderate right and moderate-severe leftneural foraminal narrowing. Impression: 1. Operative changes of posterior instrumented fusion from L3-L5 withdecompressive laminectomy. 2. Mild leftward curvature of the upper lumbar spine with advanced discdesiccation and height loss at T12-L1 and L1-L2. 3. Mild edema and postcontrast enhancement within the endplates at L5-S1not seen on prior exam, potentially degenerative in etiology, howeverosteomyelitis/discitis can not be entirely excluded. 4. Enlargement of the ventral epidural soft tissues at the L5 level(series 11, image 8 and series 12, image 35), potentially related togranulation tissue or venous plexus, however small volume epiduralphlegmon or early abscess should also be considered. 5. At the L2-L3 superior fusion junction, slight worsening ofmild-moderate spinal canal stenosis. 6. At L5-S1, advanced facet joint hypertrophy, bilateral facet jointeffusions, moderate right neural foraminal narrowing, and moderate-severeleft neural foraminal narrowing. Dictated by Marcial Ochoa MD @ 12/06/2023 2:59:02 PM (Electronically Signed) Andrew Wilson MD MR * AMB EPIDURAL STEROID INJECTION (11/22/2023 12:00 AM CDT) Andrew Wilson MD NEUROLOGY ORD * SCAN-OPERATIVE/PROCEDURE REPORT (10/23/2023 12:00 AM CDT) Scanner OTHER * SCAN-OPERATIVE/PROCEDURE REPORT (10/15/2023 12:00 AM CDT) Scanner OTHER * ANTI HCV (01/06/2018 3:38 PM CDT) HEPATITIS C ANTIBODY Non-React glo Non-React glo 01/06/2018 8:19 PM CDT [facility] Comment:Antibodies to HCV no t detected; does not exclude the possibility of exposure to HCV. Blood BLOOD SPECIMEN / Unknown Venipuncture / Unknown 01/06/2018 3:38 PM CDT 01/06/2018 3:39 PM CDT Margarette Marrero MD SEND OUTS [facility] [address] [place] [address], from Last 3 Months or Most Recently Relevant to Health Maintenance Care Teams Station Tender Relationship Specialty Start Date End Date Saba Jackson MD [address] [place] [address] PCP - General Family Practice 10/01/12
== END 2024-01-09 11:05 | disposition home or self-care (01) ==
LOC: LKVREF 11:06
PROVIDERS: PCP Family Medicine; Visit Provider Family Medicine
DX: Z12.5 Encounter for screening for malignant neoplasm of prostate (principal); N40.0 Benign prostatic hyperplasia without lower urinary tract symptoms
CPT/HCPCS: G0103

== ENCOUNTER 2024-03-06 11:57 | Outpatient (CLI) | payer MEDICARE, BC, SELFPAY ==
--- OUTSIDE RECORDS SUMMARY | 2024-03-06 12:01 | XMS_ITS | Encounter Summary ---
Author Organization [facility] Address [address] [place] [id number] Care Team Providers Care Food And Beverage Director Name Role Phone Unavailable Primary Care Provider Unavailabl e Reason for Referral * Outpatient (Routine) - Closed Specialty Diagnoses / Procedures Referred By Contac t Referred To Contact Diagnoses Pain Back Radiculopathy Lumbar Procedures DX Entire Spine Scoliosis 2-3 Views Milton Westbrook APRN, C.N.P. [address] [place] [phone] [facility] Referral ID Status Reason Start Date Expiration Date Visits Re quested Visits Authorized [id number] Closed 01/24/2024 01/23/2025 1 1 Reason for Visit * Appointment Request (Routine) - Closed Specialty Diagnoses / Procedures Referred By Contac t Referred To Contact Spine Diagnoses Pain Back Lumbar Pain Leg Left Referral ID Status Reason Start Date Expiration Date Visits Re quested Visits Authorized [id number] Closed 11/29/2023 11/28/2024 2 2 Encounter Details Date Type Department Care Team (Latest Contact Info) Description 01/24/2024 1:00 PM CDT Comprehensive Visit Department of Spine in [place], [place] [address] [place] [phone] Milton Westbrook APRN, C.N.P. [address] [place] [phone] Pain Back (Primary Dx); Radiculopathy Lumbar Social History Tobacco Use Types Packs/Day Years Used Date Smoking Tobacco: Never Smokeless Tobacco: Never Alcohol Use Standard Drinks/Week Comments No 0 (1 standard drink = 0.6 oz pur e alcohol) Nutrition Answer Date Recorded Nutrition: EVOO Fat Source 13 12/28 Nutrition: Servings of Fruits/Vegetables per Day Not on file 12/29/2019 Dental Answer Date Recorded Dental: Regular Dentist Unknown 08/11/19 21 Sex and Gender Information Value Date Recorded Sex Assigned at Male 02/12/2018 8:22 AM CDT Gender Identity Male 02/12/2018 8:22 AM CDT Sexual Orientation Straight 02/12/2018 8: 22 AM CDT documented as of this encounter Last Filed Vital Signs Vital Sign Reading Time Taken Comments Blood Pressure 140/72 01/24/2024 12:49 PM CDT Pulse 67 01/24/2024 12:49 PM CDT Temperature - - Respiratory Rate - - Oxygen Saturation - - Inhaled Oxygen Concentration - - Weight 98.7 kg (217 lb 9.5 oz) 01/24/2024 12:49 PM CDT Height 172.7 cm (5' 7.99) 01/24/2024 12:49 PM C DT Body Mass Index 33.09 01/24/2024 12:49 PM CDT documented in this encounter Consult Notes * Milton Westbrook, LEE, C.N.P. - 01/24/2024 1:00 PM CDT CHIEF COMPLIANT: Back and left leg pain HISTORY OF PRESENT ILLNESS: Mr. Hunt is a 78-year-old patient from [place], [place], who [facility] fore[facility]uation of his back and left leg pain. He has a lengthy history of back and leg pain. He pursuedchiropractic care for several years, but in approximately 2019, he elected to pursue a lumbar decompression with instrumented fusion. He reports postoperatively he had 1 year of near complete resolution of his symptoms, but over the past 2 or 3 years, he is beginning to have progressively worseningback and left leg pain. He has pursued extensive nonoperative treatment without relief. He [facility] witha [facility] offered him the options of pursuing a revision surgery, but he electedto seek out a second opinion. At the visit today, he describes pain located across his low back that extends down the length of his left leg in roughly an L5 distribution. He describes the majority of his pain as being focused over his left buttock. He rates his pain as a 7 or 8. He reports the pain is constant. He describes a component of pain at night, a component of pain with standing and walking. He has become more and more sedentary because of his pain. He has not noted any focal weakness. No bowel or bladder changes. No fevers, night sweats, chills, or unexplained weight loss. He denies any neck pain or radiation ofsymptoms to his arms or hands. TREATMENT: Physical therapy: He has pursued several courses of physical therapy, but I do not believe he is active with a supervised course of physical therapy. Spine injections: August of 2022, he pursued bilateral L5-S1 facet injections with steroid. October of 2023, he pursued what he describes as lumbar facet ablations, but I have not found a copy ofthis report in his record. November of 2023, he pursued a left L5-S1 transforaminal injection without relief. Pain medicines include hydrocodone, gabapentin, occasional oxycodone. PAST MEDICAL HISTORY #1 Pain Back #2 Radiculopathy Lumbar #3 Fracture Acetabulum Closed Initial Right (HCC) #4 Hypertension Essential Primary #5 Apnea Sleep Obstructive #6 Benign Prostatic Hyperplasia Hypertrophy With Obstruction #7 Hyperlipidemia #8 Anxiety #9 Panic Disorder Episodic Paroxysmal Anxiety PAST SURGICAL HISTORY No past surgical history on file. CURRENT MEDICATIONS Current Outpatient Medications on File Prior to Visit Medication Sig Dispense Refill acetaminophen (TYLENOL) 500 mg tablet Take 2 tablets (1,000 mg total) by mouth 4 (four) times a day. For pain - this medication may be purchased over the counter ALPRAZolam (XANAX) 0.5 mg tablet Take 0.5 mg by mouth 2 (two) times a day as needed for anxiety. atorvastatin (LIPITOR) 10 mg tablet Take 10 mg by mouth. buPROPion (WELLBUTRIN SR) 100 mg 12 hr tablet Take 1 tablet by mouth daily. esomeprazole (NexIUM) 5 mg packet Take by mouth daily before morning meal. finasteride (PROSCAR) 5 mg tablet Take 1 tablet by mouth daily. 1 gabapentin (NEURONTIN) 100 mg capsule 2 lisinopril-hydroCHLOROthiazide 10-12.5 mg per tablet Take 1 tablet by mouth daily. metFORMIN XR (Glucophage-XR) 500 mg 24 hr tablet Take 500 mg by mouth daily with morning meal. oxyCODONE (ROXICODONE) 5 mg immediate release tablet Take 1-2 tablets (5-10 mg total) by mouth every 4 (four) hours as needed for pain. 5 mg for pain 3-6 10 mg for pain 7-10 40 tablet 0 sertraline (ZOLOFT) 100 mg tablet Take 1 tablet by mouth daily. No current facility-administered medications on file prior to visit. ALLERGIES No Known Allergies FAMILY HISTORY No family history on file. PHYSICAL EXAMINATION General: Well-developed, well-nourished individual who does not appear in any acute distress Mental: Appropriate mood and affect. Grossly oriented with coherent speech and thought processing. Spine: Inspection of the posterior lumbar region did not reveal any redness, swelling or mass. He has a well-healed incision along the midline of his lumbar spine Lumbar ROM is limited by pain with both flexion and extension. Palpation reveals tenderness over his left gluteus. He stands with a positive sagittal balance. He is not able to fully correct this even with prompting. Gait: He was in a wheelchair. He is able to stand and walk with the use of a cane. He is unsteady in his gait unable to demonstrate plantar dorsiflexion while weight-bearing or tandem gait. Strength: With independent testing of the bilateral upper and lower extremity strength is 5/5 throughout. Reflexes: Bilateral upper and lower extremity muscle stretch reflexes are diminished. No Cormier sign. Plantar responses are down going. No evidence of ankle clonus Provocative Maneuvers: Straight leg raise is negative. ROM of the bilateral hips did not reproduce the pain. Stella sign is negative. Palpation over the lateral hips did not reproduce any tenderness. Cardiovascular: Pedal pulses are intact. No lower extremity edema. Respiratory: Breathing is comfortable and regular. DIAGNOSTICS Imaging: I reviewed his lumbar spine x-ray dated from January 24, 2024, which reveals spondylitic changes with the instrumented fusion from L3 to L5. He appears to have lost his normal lumbar lordosis. He appears to have a left-sided thoracolumbar scoliosis that is not fully visualized on the x-ray. I also reviewed an MRI of his lumbar spine dated from December 06, 2023, which reveals spondylitic changes. He has instrumentation from L3 to L5. He appears to have central canal narrowing at L5-S1, but this is secondary to epidural lipomatosis or other soft tissue changes and is not related to spondylitic changes. He has severe facet arthropathy with effusions bilaterally at L5-S1. He has evidence ofatrophy of his lumbar paraspinal muscles at L5-S1. He has [id number] central canal narrowing at L2-3. He has severe foraminal narrowing on the left at L5-S1. The outside report describes mild edema and postcontrast enhancement within the endplates at L5-S1, which is suspected to be degenerative in etiology, but an osteomyelitis diskitis could not be ruled out. The outside report also a describes of enlargement of the ventral epidural soft tissues at L5 which could be related to granulation tissues or venous plexus, but a small volume epidural phlegmon abscess could not be ruled out. I also reviewed the patient lab work completed at outside facility dated from December 09, 2023, which included a normal sed rate, his CRP was essentially normal with normal of 0.5 and his results were atthe 0.5. ASSESSMENT / PLAN #1 Back and left leg pain #2 Status post L3 through L5 instrumented fusion performed at [facility] in 2021 #3 Type 2 diabetes PLAN: I reviewed the imaging studies with the patient. I discussed with him of a challenging history. I think based on the information available his symptoms are multifactorial. He may have a component of an L5 radiculopathy, but I do not think this accounts for all of his symptoms. I think it would be helpful to obtain an EMG, as well as a scoliosis x-ray to assess his sagittal balance. The patient, however, is most interested in surgical treatment options, he has been offered the options of pursuing a revision surgery and he is scheduled to visit with our Spine Surgery colleagues next month. It is not clear to me if he will pursue the EMG and the x-ray prior to the visit. From a nonoperative treatment standpoint, I think we could consider consult with our Pain Clinic colleagues for consideration of a repeat left L5 transforaminal injection. If this was not effective, then they could discuss options for advanced pain management strategies, including peripheral nerve or spinal cord stimulation. He may also benefit from increasing doses of gabapentin. Also discussed with him the importance of maintaining a consistent physical therapy program, working on low-impact aerobic conditioning, strengthening, stretching, and weight loss. We discussed possible benefits of use of a wheeled walker with a seat. We reviewed signs and symptoms suggestive of progressive neurologic deterioration. The patient will reach out to me if he has any questions or felt I could be of further assistance in his care after his surgical consultation. I spent a total of 80 minutes providing care to the patient today including chart review, [id number] evaluation, care coordination, and documentation. documented in this encounter Plan of Treatment Not on file documented as of this encounter Results * DX Entire Spine Scoliosis 2-3 Views (02/10/2024 11:13 AM CDT) Anatomical Region Laterality Modality Spine, Musculoskeletal RST L OS, Neuroradiology ARZ LOS, Muskuloskeletal FLA LOS N/A Digital Radiography Impressions 02/10/2024 11:17 AM CDT Full-length standing views of the entire spine obtained for scoliosis evaluation. Thoracolumbar scoliosis. Cervicothoracic curve. 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 Interbody fusion C4 interspace. Posterior fusion L3-L5 with deanna and pedicle screw fixation. Lumbar laminectomies. Old right rib fractures. Old fracture deformities right pubic bone. Surgical clips right abdomen. Narrative 02/10/2024 11:17 AM CDT EXAM: ??DX ENTIRE SPINE SCOLIOSIS 2-3 VIEWS Procedure Note Mikaela Way M.D. - 02/10/2024 EXAM: DX ENTIRE SPINE SCOLIOSIS 2-3 VIEWS IMPRESSION: Full-length standing views of the entire spine obtained for scoliosisevaluation. Thoracolumbar scoliosis. Cervicothoracic curve. Advanceddegenerative arthritis throughout the entire spine with multileveldegenerative disc disease and facet arthropathy. Interbody fusion C4 interspace. Posterior fusion L3-L5 withrod and pedicle screw fixation. Lumbar laminectomies. Old right ribfractures. Old fracture deformities right pubic bone. Surgical clips rightabdomen. Leonila Townsend APRNNBalta IMG DIAGNOSTI C IMAGING PROCEDURES documented in this encounter Visit Diagnoses Diagnosis Pain Back- Primary Radiculopathy Lumbar Pain Back Radiculopathy Lumbar documented in this encounter
--- OUTSIDE RECORDS SUMMARY | 2024-03-06 12:01 | XMS_ITS | Encounter Summary ---
Author Organization [facility] Address [address] [place] [address] Care Team Providers Care Yoker Name Role Phone Unavailable Primary Care Provider Unavailabl e Reason for Visit * Reason Onset Date Comments Pre-visit Intake 01/22/2024 Encounter Details Date Type Department Care Team (Latest Contact Info) Description 01/22/2024 1:00 PM CDT Clinical Communication Virtual Review in [place], [place] [address] [place] [phone] Pre-visit Intake Social History Tobacco Use Types Packs/Day Years Used Date Smoking Tobacco: Never Smokeless Tobacco: Never Tobacco Cessation:Counseling Given: Not Answered Alcohol Use Standard Drinks/Week Comments No 0 [...] AM CDT documented as of this encounter Plan of Treatment Not on file documented as of this encounter Visit Diagnoses Not on filedocumented in this encounter
--- OUTSIDE RECORDS SUMMARY | 2024-03-06 12:01 | XMS_ITS | Encounter Summary ---
Author Organization [facility] Address [address] [place] [address] Care Team Providers Care Glued Wood Tester Name Role Phone Unavailable Primary Care Provider Unavailabl e Reason for Referral * Outpatient (Routine) - Closed Specialty Diagnoses / Procedures Referred By Contac t Referred To Contact Diagnoses Pain Low Back Unspecified Procedures DX Lumbar Spine 4+ Views Milady Jaffe APRN, C.N.P., Paula.N.P., M.S.N. [facility] Referral ID Status Reason Start Date Expiration Date Visits Re quested Visits Authorized [id number] Closed 2023 12/25/2024 1 1 * MRI/CAT/PET Scan (Routine) - Closed Specialty Diagnoses / Procedures Referred By Contac t Referred To Contact Radiology Diagnoses Pain Low Back Unspecified Procedures CT Lumbar Spine without IV Contrast Milady Jaffe APRN, C.N.P., D.N.P., M.S.N. [facility] Referral ID Status Reason Start Date Expiration Date Visits Re quested Visits Authorized [id number] Closed 2023 12/25/2024 1 1 Encounter Details Date Type Department Care Team (Late st Contact Info) Description 2023 Orders Only Department of Neurologic Surgery in [place], [place] [address] [place] [phone] Milady Jaffe, LEE, C.N.P., D.N.P., M.S.N. Pain Low Back Unspecified (Primary Dx) Social History Tobacco Use Types Packs/Day Years [...] documented as of this encounter Results * CT Lumbar Spine without IV Contrast (01/24/2024 3:04 PM CDT) Anatomical Region Laterality Modality Lumbar Spine, Neuroradiology [facility], Neuroradiology [facility], Neuroradiology [facility] N/A Computed Tomography, Compute d Tomography Impressions 01/24/2024 4:58 PM CDT 1. The L3-L5 fusion construct appears solid. 2. Increasing tissue mass related to the left L5 neural foramen and L5 nerve root in the presacral fat is indeterminant for a compressive lesion of the 5th nerve with reactive enlargement or an intrinsic mass of the left 5th nerve. MRI lumbosacral plexus would be helpful in further characterization. Narrative 01/24/2024 4:58 PM CDT EXAM: CT LUMBAR SPINE WITHOUT IV CONTRAST COMPARISON: Outside MRI lumbar spine 12/06/2023 FINDINGS: 5 lumbar type vertebral bodies. Adolfo and pedicle screw fixation L3-L5. The fusion construct appears solid. No evidence of instrumentation failure or loosening. Advanced degenerative disc disease at T11-L2 and L5 interspaces. No evidence for significant lumbar canal narrowing. Caliber is better demonstrated on outside MRI lumbar spine. Advanced spondylotic narrowing of L5 neural foramina bilaterally. Note: On the outside MRI exam, there is prominent soft tissue at the posterolateral aspect of L5 interspace on the left along with prominent soft tissue following the path of left L5 nerve root into the left presacral fat. It is also present on today's CT exam (series 5, image 56 through series 5, image 73). The finding could represent large posterior lateral L5 disc extrusion with reactive enlargement of the nerve root, however this abnormality was not present on 01/28/2020, is evident but smaller on 05/10/2023 outside exam, and still larger on 12/06/[address] exam. MRI examination of the lumbosacral plexus, without and with IV contrast material would be helpful in further characterization. Procedure Note Beau Cortes M.D. - 01/24/2024 EXAM: CT LUMBAR SPINE WITHOUT IV CONTRAST COMPARISON: Outside MRI lumbar spine 12/06/2023 FINDINGS: 5 lumbar type vertebral bodies. Adolfo and pedicle screw fixationL3-L5. The fusion construct appears solid. No evidence of instrumentationfailure or loosening. Advanced degenerative disc disease at T11-L2 and L5 interspaces. Noevidence for significant lumbar canal narrowing. Caliber is betterdemonstrated on outside MRI lumbar spine. Advanced spondylotic narrowingof L5 neural foramina bilaterally. Note: On the outside MRI exam, there is prominent soft tissue at theposterolateral aspect of L5 interspace on the left along with prominentsoft tissue following the path of left L5 nerve root into the leftpresacral fat. It is also present on today's CT exam (series 5, image 56 through series 5, image 73). The finding couldrepresent large posterior lateral L5 disc extrusion with reactiveenlargement of the nerve root, however this abnormality was not present on01/28/2020, is evident but smaller on 05/10/2023 outside exam, and still larger on 12/06/2023 exam and today's CTexam. MRI examination of the lumbosacral plexus, without and with IVcontrast material would be helpful in further characterization. IMPRESSION: 1. The L3-L5 fusion construct appears solid. 2. Increasing tissue mass related to the left L5 neural foramen and H1fjvnx root in the presacral fat is indeterminant for a compressive lesionof the 5th nerve with reactive enlargement or an intrinsic mass of theleft 5th nerve. MRI lumbosacral plexus would be helpful in further characterization. Dk Bear APRN.N.P., Paula.N.P. , M.S.N. IMG CT PROCEDURES * DX Lumbar Spine 4+ Views (01/24/2024 11:46 AM CDT) Anatomical Region Laterality Modality Lumbar Spine, Musculoskeleta l RST LOS, Neuroradiology ARZ LOS, Muskuloskeletal FLA LOS N/A Computed Tomography Impressions 01/24/2024 12:35 PM CDT Demineralization. Lumbar curvature. Posterior adolfo and pedicle screw fixation L3 to L5. Hardware is intact. Advanced spondylotic changes and degenerative disk disease with low grade subluxations. Multilevel advanced interspace narrowing. No gross instability on flexion and extension. SI joint arthritis. RUQ clips. ?? Narrative 01/24/2024 12:35 PM CDT EXAM: ??DX LUMBAR SPINE 4+ VIEWS Procedure Note Yuliana Fletcher M.D. - 01/24/2024 EXAM: DX LUMBAR SPINE 4+ VIEWS IMPRESSION: Demineralization. Lumbar curvature. Posterior adolfo and pedicle screwfixation L3 to L5. Hardware is intact. Advanced spondylotic changes anddegenerative disk disease with low grade subluxations. Multilevel advancedinterspace narrowing. No gross instability on flexion and extension. SI joint arthritis. RUQ clips. Milady Jaffe APRN, Dk.N.P., Paula.N.P. , M.S.N. IMG DIAGNOSTIC IMAGING PROCEDURES documented in this encounter Visit Diagnoses Diagnosis Pain Low Back Unspecified- Primary Pain Low Back Unspecified Pain Low Back Unspecified documented in this encounter
--- OUTSIDE RECORDS SUMMARY | 2024-03-06 12:01 | XMS_ITS | Encounter Summary ---
Author Organization [facility] Address [address] [place] [address] Care Team Providers Care Photographic Lithographer Name Role Phone Unavailable Primary Care Provider Unavailabl e Reason for Referral * Outpatient (Routine) - Closed Specialty Diagnoses / Procedures Referred By Don medellin Referred To Contact Diagnoses Pain Low Back Unspecified Procedures DX Lumbar Spine 4+ Views Milady Jaffe APRN, C.N.P., Paula.N.P., M.S.N. [facility] Referral ID Status Reason Start Date Expiration Date Visits Re quested Visits Authorized [id number] Closed 2023 12/25/2024 1 1 Reason for Visit * Outpatient (Routine) - Closed Specialty Diagnoses / Procedures Referred By Danteac lacie Referred To Contact Diagnoses Pain Low Back Unspecified Procedures DX Lumbar Spine 4+ Views Milady Jaffe APRN, C.N.P., D.N.P., M.S.N. [facility] Referral ID Status Reason Start Date Expiration Date Visits Re quested Visits Authorized [id number] Closed 2023 12/25/2024 1 1 Encounter Details Date Type Department Care Team (Latest Contact Info) Description 01/24/2024 11:01 AM CDT - 01/24/2024 2:14 PM CDT Hospital Encounter Department of Radiology, [facility], in [place], [place] [address] [place] [address] Milady Jaffe APRN, C.N.P., D.N.P., M.S.N. Pain Low Back Unspecified Discharge Disposition: Home or Self Care Social History Tobacco Use Types Packs/Day Years [...] AM CDT documented as of this encounter Medications at Time of Discharge Medication Sig Dispensed Refills Start Date End Date acetaminophen (TYLENOL) 500 mg tablet Take 2 tablets (1,000 mg total) by mouth 4 (four) times a day. For pain - this medication may be purchased over the counter 12/30/2017 ALPRAZolam (XANAX) 0.5 mg tablet Take 0.5 mg by mouth 2 (two) times a day as needed for anxiety. atorvastatin (LIPITOR) 10 mg tablet Take 10 mg by mouth. 10/01/2012 buPROPion (WELLBUTRIN SR) 100 mg 12 hr tablet Take 1 tablet by mouth daily. 10/01/2012 esomeprazole (NexIUM) 5 mg packet Take by mouth daily before morning meal. finasteride (PROSCAR) 5 mg tablet Take 1 tablet by mouth daily. 1 11/18/2017 gabapentin (NEURONTIN) 100 mg capsule 2 02/05/2018 lisinopril-hydroCHLOROt hiazide 10-12.5 mg per tablet Take 1 tablet by mouth daily. metFORMIN XR (Glucophage-XR) 500 mg 24 hr tablet Take 500 mg by mouth daily with morning meal. oxyCODONE (ROXICODONE) 5 mg immediate release tablet Take 1-2 tablets (5-10 mg total) by mouth every 4 (four) hours as needed for pain. 5 mg for pain 3-6 10 mg for pain 7-10 40 tablet 12/30/2017 sertraline (ZOLOFT) 100 mg tablet Take 1 tablet by mouth daily. 10/01/2012 documented as of this encounter Plan of Treatment Not on file documented as of this encounter Procedures Procedure Name Priority Date/Time Associated Diagnosis Comments DX LUMBAR SPINE 4+ VIEWS RAD - Routine (most inpatients and all outpatients) 01/24/2024 11:46 AM CDT Pain Low Back Unspecified documented in this encounter Results * DX Lumbar Spine 4+ Views (01/24/2024 11:46 AM CDT) Anatomical Region Laterality Modality Lumbar Spine, Musculoskeleta l RST LOS, Neuroradiology ARZ LOS, Muskuloskeletal FLA LOS N/A Computed Tomography Impressions 01/24/2024 12:35 PM CDT Demineralization. Lumbar curvature. Posterior deanna and pedicle screw fixation L3 to L5. [...] 4+ VIEWS IMPRESSION: Demineralization. Lumbar curvature. Posterior deanna and pedicle screwfixation L3 to L5. Hardware is intact. Advanced spondylotic changes anddegenerative disk disease with low grade subluxations. Multilevel advancedinterspace narrowing. No gross instability on flexion and extension. SI joint arthritis. RUQ clips. Milady Jaffe APRN, C.N.P., D.N.P. , M.S.N. IMG DIAGNOSTIC IMAGING PROCEDURES documented in this encounter Visit Diagnoses Diagnosis Pain Low Back Unspecified documented in this encounter
--- OUTSIDE RECORDS SUMMARY | 2024-03-06 12:01 | XMS_ITS | Encounter Summary ---
Author Organization [facility] Address [address] [place] [address] Care Team Providers Care Marketing Production Specialist Name Role Phone Unavailable Primary Care Provider Unavailabl e Reason for Referral * MRI/CAT/PET Scan (Routine) - Authorized Specialty Diagnoses / Procedures Referred By Contac t Referred To Contact Radiology Diagnoses Radiculopathy Lumbar Procedures MR Thoracic Spine without IV Contrast Kevin Lara M.D. 200 [place] [address] [facility] Referral ID Status Reason Start Date Expiration Date V isits Requested Visits Authorized [id number] Authorized 02/10/2024 02/09/2025 1 1 * MRI/CAT/PET Scan (Routine) - Authorized Specialty Diagnoses / Procedures Referred By Contac t Referred To Contact Radiology Diagnoses Radiculopathy Lumbar Procedures MR Cervical Spine without IV Contrast Kevin Lara M.D. [address] [place] [address] [facility] Referral ID Status Reason Start Date Expiration Date V isits Requested Visits Authorized [id number] Authorized 02/10/2024 02/09/2025 1 1 * Outpatient (Routine) - Authorized Specialty Diagnoses / Procedures Referred By Contac t Referred To Contact Diagnoses Radiculopathy Lumbar Procedures FL Lumbar Spine Transforaminal Epidural Injection Left Kevin Lara M.D. [address] [place] [address] [facility] Referral ID Status Reason Start Date Expiration Date V isits Requested Visits Authorized [id number] Authorized 02/10/2024 02/09/2025 1 1 Reason for Visit * Appointment Request (Routine) - Closed Specialty Diagnoses / Procedures Referred By Don t Referred To Contact Spine Diagnoses Pain Back Lumbar Pain Leg Left Referral ID Status Reason Start Date Expiration Date Visits Re quested Visits Authorized [id number] Closed 11/29/2023 11/28/2024 2 2 Encounter Details Date Type Department Care Team (Latest Contact Info) Description 02/10/2024 11:00 AM CDT Comprehensive Visit Department of Orthopedic Surgery in [place], [place] [address] [place] [address] Javon Kohler M.D. [address] [place] [address] Radiculopathy Lumbar (Primary Dx); Stenosis Spinal; Stenosis Spinal Lumbar With Neurogenic Claudication; Scoliosis; Fusion Lumbar Spine Status Post; Osteoporosis Social History Tobacco Use Types Packs/Day Years [...] AM CDT documented as of this encounter Consult Notes * Javon Kohler M.D. - 02/10/2024 11:00 AM CDT SUBJECTIVE Please refer to Milton Westbrook's notes for the details of the history and physical examination. HISTORY OF PRESENT ILLNESS Briefly, this is a 78-year-old male that comes in today with a chief complaint of low back pain as well as left lower extremity pain. Please refer again to Milton Westbrook's notes for the details of the history and physical examination. He has been using a combination of medications including gabapentin 400 mg at nighttime as well as oxycodone for control of symptoms. He has a history of diabetes mellitus, obesity with a BMI of 33. He has a history of cholecystectomy, history of previous L3 through5 fusion in 2019 that only gave him approximately 1 year of relief. After that, he had recurrence of low back pain and left lower extremity pain. He describes the pain as starting in the hip and thengoing into the lateral leg, calf, and lateral foot. He describes this as sharp and tingling; that sounds more radicular in nature following an L5 pattern. He has a component that may be pseudoclaudicatory in nature as well described as heaviness. He gets resolution with forward flexion or sitting. He has had epidural steroid injections as well as radiofrequency ablations, but these have not givenhim long-lasting relief. He has some mild iliopsoas weakness as well as a positive ANUM on the left side. He has some wrist extensor weakness graded 4/5 on the left side. OBJECTIVE DIAGNOSTICS Imaging studies show scoliosis with a previous L3 through 5 fusion. He has a fractional curve on the left side that results in foraminal stenosis on the left in the setting of his degenerative scoliosis. On MRI significant collapse in the L5-S1 foramen on the left greater than right resulting in foraminal stenosis at the L5-S1 segment with fluid in the facets at this segment indicative of some instability at this level. He has wedging of the thoracolumbar junction vertebrae indicative of fractures at these segments in the setting of fatty replacement of these vertebrae consistent with osteoporosis. He has a moderate degree of junctional stenosis at the L2-3 segment, although I would doubt that this is the primary reason that he is symptomatic. I think he is likely much more symptomatic from his L5-S1 foraminal stenosis than his junctional lateral recess stenosis based off of his symptomdescription. ASSESSMENT / PLAN #1 Likely degenerative changes both above and below previous L3 through 5 fusion in the setting of scoliosis and likely underlying osteoporosis in the setting of obesity and diabetes mellitus, on oxycodone currently as well as gabapentin for pain control We did discuss with Mr. Hunt that he may benefit from some additional testing including an MRI ofthe cervical and thoracic spine to rule out proximal levels of stenosis. We also discussed with himtrying to initiate a higher dose of gabapentin to help him with his pain. We have given him a prescription at his request to try to ramp this up and given him a ramp-up schedule. We have also suggested a left-sided L5-S1 transforaminal epidural injection, and we have gone ahead and ordered this forhim to see if he gets any pain relief in this regard. We have also gone ahead and ordered this for him as well. I have suggested that he work with his primary care physician in trying to work on ramping this up and continuing with nonoperative treatment strategies. Certainly, I do not think that a large surgery would be in his best interest, as I think this would be quite a large intervention. Based off of his age and underlying medical issues and comorbidities, I think this would be quite a large undertaking for him in the setting of his scoliosis and osteoporosis. We took time to answer his questions and concerns in the office today. I think we should focus on trying to ramp up his gabapentin and treating him nonoperatively. We did discuss weight loss as well as aerobic conditioning with exercise, core strengthening, and other nonoperative strategies. Javon Kohler M.D. CT CT Job ID: [id number]/liz documented in this encounter Plan of Treatment Scheduled Orders Name Type Priority Associated Diagnoses Orde r Schedule MR Cervical Spine without IV Contrast Imaging RAD - Routine (most inpatients and all outpatients) Radiculopathy Lumbar Expected: 02/10/2024, Expires: 05/11/2025 MR Thoracic Spine without IV Contrast Imaging RAD - Routine (most inpatients and all outpatients) Radiculopathy Lumbar Expected: 02/10/2024, Expires: 05/11/2025 documented as of this encounter Visit Diagnoses Diagnosis Radiculopathy Lumbar- Primary Stenosis Spinal Stenosis Spinal Lumbar With Neurogenic Claudication Scoliosis Fusion Lumbar Spine Status Post Osteoporosis documented in this encounter
--- OUTSIDE RECORDS SUMMARY | 2024-03-06 12:01 | XMS_ITS | Encounter Summary ---
Author Organization [facility] Address [address] [place] [address] Care Team Providers Care Business Operations Analyst Name Role Phone Unavailable Primary Care Provider Unavailabl e Reason for Referral * Outpatient (Routine) - Closed Specialty Diagnoses / Procedures Referred By Contac t Referred To Contact Diagnoses Pain Back Radiculopathy Lumbar Procedures DX Entire Spine Scoliosis 2-3 Views Milton Westbrook APRN, C.N.P. [address] [place] [phone] [facility] Referral ID Status Reason Start Date Expiration Date Visits Re quested Visits Authorized [id number] Closed 01/24/2024 01/23/2025 1 1 Reason for Visit * Outpatient (Routine) - Closed Specialty Diagnoses / Procedures Referred By Contac t Referred To Contact Diagnoses Pain Back Radiculopathy Lumbar Procedures DX Entire Spine Scoliosis 2-3 Views Milton Westbrook APRN, C.N.P. [address] [place] [phone] [facility] Referral ID Status Reason Start Date Expiration Date Visits Re quested Visits Authorized [id number] Closed 01/24/2024 01/23/2025 1 1 Encounter Details Date Type Department Care Team (Latest Contact Info) Description 02/10/2024 10:52 AM CDT - 02/10/2024 11:59 PM CDT Hospital Encounter Department of Radiology, [facility], in [place], [place] [address] [place] [address] Milton Westbrook APRN, C.N.P. [address] [place] [address] Pain Back; Radiculopathy Lumbar Discharge Disposition: Home or Self Care Social [...] gabapentin (NEURONTIN) 100 mg capsule 2 02/05/2018 gabapentin (Neurontin) 300 mg capsule Take 1 capsule (300 mg total) by mouth 3 (three) times a day. 270 capsule 02/10/2024 05/10/2024 lisinopril-hydroCHLOR Othiazide 10-12.5 mg per tablet Take 1 tablet [...] Name Priority Date/Time Associated Diagnosis Comments DX ENTIRE SPINE SCOLIOSIS 2-3 VIEWS RAD - Routine (most inpatients and all outpatients) 02/10/2024 11:13 AM CDT Pain Back Radiculopathy Lumbar documented in this encounter Results * DX Entire Spine [...] deformities right pubic bone. Surgical clips rightabdomen. Milton Westbrook APRN, C.N.P. IMG DIAGNOSTI C IMAGING PROCEDURES documented in this encounter Visit Diagnoses Diagnosis Pain Back Radiculopathy Lumbar documented in this encounter
--- OUTSIDE RECORDS SUMMARY | 2024-03-06 12:01 | XMS_ITS | Clinical Summary ---
Author Organization [facility] Address [address] [place] [address] Care Team Providers Care Wildlife Refuge Manager Name Role Phone Unavailable Primary Care Provider Unavailabl e Source Comments Patient records contain information from all sites at [facility]. For routine questions regarding patient records, call [phone] during business hours, M-F 8:00 AM - 5:00 PM Central Time. Record requests for emergency care only can be directed to [phone] at any time.[facility] Allergies No known active allergies Medications Medication Sig Dispensed Refills Start Date End Date Status ALPRAZolam (XANAX) 0.5 mg tablet Take 0.5 mg by mouth 2 (two) times a day as needed for anxiety. Active atorvastatin (LIPITOR) 10 mg tablet Take 10 mg by mouth. 10/01/2012 Active buPROPion (WELLBUTRIN SR) 100 mg 12 hr tablet Take 1 tablet by mouth daily. 10/01/2012 Active finasteride (PROSCAR) 5 mg tablet Take 1 tablet by mouth daily. 1 11/18/2017 Active sertraline (ZOLOFT) 100 mg tablet Take 1 tablet by mouth daily. 10/01/2012 Active acetaminophen (TYLENOL) 500 mg tablet Take 2 tablets (1,000 mg total) by mouth 4 (four) times a day. For pain - this medication may be purchased over the counter 12/30/2017 Active oxyCODONE (ROXICODONE) 5 mg immediate release tablet Take 1-2 tablets (5-10 mg total) by mouth every 4 (four) hours as needed for pain. 5 mg for pain 3-6 10 mg for pain 7-10 40 tablet 12/30/2017 Active gabapentin (NEURONTIN) 100 mg capsule 2 02/05/2018 Active lisinopril-hydroC HLOROthiazide 10-12.5 mg per tablet Take 1 tablet by mouth daily. Active esomeprazole (NexIUM) 5 mg packet Take by mouth daily before morning meal. Active metFORMIN XR (Glucophage-XR) 500 mg 24 hr tablet Take 500 mg by mouth daily with morning meal. Active gabapentin (Neurontin) 300 mg capsule Take 1 capsule (300 mg total) by mouth 3 (three) times a day. 270 capsule 02/10/2024 05/10/2024 Active Active Problems Problem Noted Date Diagnosed Date Fracture Acetabulum Closed Initial Right 018 Hypertension Essential Primary 12/29/2017 Apnea Sleep Obstructive 12/29/2017 Benign Prostatic Hyperplasia Hypertrophy With Ob struction 12/29/2017 Hyperlipidemia 12/29/2017 Anxiety 12/29/2017 Panic Disorder Episodic Paroxysmal Anxiety 12/29 Resolved Problems Problem Noted Date Diagnosed Date Resolved Date Fracture Acetabulum Closed Initial Left 12/29/2017 01/08/2018 Encounters Date Type Department Care Team Description 02/10/2024 11:00 AM CDT Comprehensive Visit Department of Orthopedic Surgery in [place], [place] [address] [place] [phone] Javon Kohler M.D. Radiculopathy Lumbar (Primary Dx); Stenosis Spinal; Stenosis Spinal Lumbar With Neurogenic Claudication; Scoliosis; Fusion Lumbar Spine Status Post; Osteoporosis 02/10/2024 10:52 AM CDT - 02/10/2024 11:59 PM CDT Hospital Encounter Department of Radiology, [place], [place] [address] [place] [phone] Milton Westbrook APRN, C.N.P. Pain Back; Radiculopathy Lumbar Discharge Disposition: Home or Self Care 01/24/2024 2:15 PM CDT - 01/24/2024 11:59 PM CDT Hospital Encounter Department of Radiology, [facility], in [place], [place] [address] [place] [phone] Milady Jaffe APRN, C.N.P., D.N.P., M.S.N. Pain Low Back Unspecified Discharge Disposition: Home or Self Care 01/24/2024 1:00 PM CDT Comprehensive Visit Department of Spine in [place], [place] [address] [place] [phone] Milton Westbrook APRN, C.N.P. Pain Back (Primary Dx); Radiculopathy Lumbar 01/24/2024 11:01 AM CDT - 01/24/2024 2:14 PM CDT Hospital Encounter Department of Radiology, [facility], in [place], [place] [address] [place] [phone] Milady Jaffe APRN, C.N.P., D.N.P., M.S.N. Pain Low Back Unspecified Discharge Disposition: Home or Self Care 01/22/2024 1:00 PM CDT Clinical Communication Virtual Review in [place], [place] 200 [place] [address] Pre-visit Intake 2023 Orders Only Department of Neurologic Surgery in [place], [place] [address] [place] [phone] Milady Jaffe APRN, C.N.P., D.N.P., M.S.N. Pain Low Back Unspecified (Primary Dx) from Last 3 Months Social History Tobacco Use Types Packs/Day Years [...] Orientation Straight 02/12/2018 8: 22 AM CDT Last Filed Vital Signs Vital Sign Reading Time Taken Comments Blood Pressure 140/72 01/24/2024 12:49 PM CDT Pulse 67 01/24/2024 12:49 PM CDT Temperature 37.1 ??C (98.8 ??F) 01/01/2018 5:00 AM CD T Respiratory Rate 16 01/01/2018 5:00 AM CDT Oxygen Saturation 96% 01/01/2018 5:00 AM CDT Inhaled Oxygen Concentration - - Weight 98.7 kg (217 lb 9.5 oz) 01/24/2024 12:49 PM CDT Height 172.7 cm (5' 7.99) 01/24/2024 12:49 PM C DT Body Mass Index 33.09 01/24/2024 12:49 PM CDT Plan of Treatment Health Maintenance Due Date Last Done Comments Hepatitis C Screening 1945 RSV vaccine - (32-3 6 weeks) or 60+ years (1 - 1-dose 75+ series) 12/27/2019 Zoster Vaccines (3 of 3) 11/11/2020 09/16/2020, 05/05 Depression Screening (Annual PHQ-2) 06/03/2023 Fall Risk Screen (Annual) 06/03/2023 COVID-19 Vaccine (7 - 2023-2 5 season) 2024 03/25/2023, 03/14/2022, 10/11/2021, Additional history exists Influenza Vaccine (#1) 2024 , 03/29/2022, 03/21/2020, Additional history exists Office Visit for Blood Press ure Check / Re-check 04/25/2024 01/24/2024 Creatinine Level (Kidney Fun ction Test) 12/08/2024 12/09/2023, 04/24/2019, 02/27/2019, Additional history exists Potassium Level 12/08/2024 12/09/2023, 02/02, 04/24/2019, Additional history exists Sodium Level 12/08/2024 12/09/2023, 04/04, 02/27/2019, Additional history exists DTaP,Tdap,and Td Vaccines (2 - Td or Tdap) 12/29/2027 12/28/2017, 12/30/2009, 01/26/2000 Abdominal Aortic Aneurysm (A AA) Screen Discontinued 12/29/2017 Pneumococcal vaccine (65+ years) Completed 09/16/2020, 10/18/2014, 08/26/2014, Additional history exists Procedures Procedure Name Priority Date/Time Associated Diagnosis Comments DX ENTIRE SPINE SCOLIOSIS 2-3 VIEWS RAD - Routine (most inpatients and all outpatients) 02/10/2024 11:13 AM CDT Pain Back Radiculopathy Lumbar CT LUMBAR SPINE WITHOUT IV CONTRAST RAD - Routine (most inpatients and all outpatients) 01/24/2024 3:04 PM CDT Pain Low Back Unspecified DX LUMBAR SPINE 4+ VIEWS RAD - Routine (most inpatients and all outpatients) 01/24/2024 11:46 AM CDT Pain Low Back Unspecified OUTSIDE MR NEURO Routine 12/06/2023 12:5 5 PM CDT BASIC METABOLIC PANEL, S/P Routine 12/30/2017 3:[address] ABDOMEN PELVIS WITH IV CONTRAST RAD - Emergent (Fastest; for the most critically ill patients) 12/29/2017 1:02 AM CDT from Last 3 Months or Most Recently Relevant to Health Maintenance Results * DX Entire Spine Scoliosis 2-3 [...] fusion C4 interspace. Posterior fusion L3-L5 with adolfo and pedicle screw fixation. Lumbar laminectomies. Old [...] APRN, C.N.P. IMG DIAGNOSTI C IMAGING PROCEDURES * CT Lumbar Spine without IV Contrast (01/24/2024 3:04 PM CDT) Anatomical Region Laterality Modality Lumbar Spine, Neuroradiology RST LOS, Neuroradiology ARZ LOS, Neuroradiology FLA LOS N/A Computed Tomography, Compute d Tomography Impressions [...] to the left L5 neural foramen and M6ysnyc root in the presacral fat is indeterminant for a compressive lesionof the 5th nerve with reactive enlargement or an intrinsic mass of theleft 5th nerve. MRI lumbosacral plexus would be helpful in further characterization. Milady Jaffe APRN, C.N.P., D.N.P. , M.S.N. IMG CT PROCEDURES * DX [...] D.N.P. , M.S.N. IMG DIAGNOSTIC IMAGING PROCEDURES * MR SPINE LUMBAR WWO-Outside MR Neuro (12/06/2023 12:55 PM CDT) Narrative [facility] - 12/25/2023 12:49 PM CDT This order has been created and auto-finalized to support the import of outside images. If available, original interpretation can be found on the Media Tab in Chart Review, in Document Viewer, as an image in QREADS or as an Addendum. If a re-interpretation or overread is required please follow defined workflow.?? Provider Not In System IMG MRI PROCEDURE S [facility] NA * CT Abdomen Pelvis with IV Contrast (12/29/2017 1:02 AM CDT) Anatomical Region Laterality Modality Abdomen, Pelvis, Abdominal RST LOS N/A Computed Tomography 12/29/2017 1:03 AM CDT Impressions 12/29/2017 9:22 AM CDT IMPRESSION: ?? Acute complex right-sided pelvic fracture with fluid and inflammatory change in the right lower peritoneum and in the space of Retzius. This could represent hemorrhage versus bladder rupture, and a CT cystogram could be performed if there is clinical concern for the latter. Findings discussed with Juancarlos Samano MD ([id number]) at 1:20 am on 12/29/2017. I have personally reviewed the images and agree with this interpretation. Narrative 12/29/2017 9:22 AM CDT EXAM: ??CT ABDOMEN PELVIS WITH IV CONTRAST COMPARISON: ??None available. FINDINGS: ?? Acute, minimally displaced complex right pelvic fracture extending from the right inferior ilium to the anterior acetabulum and ischial tuberosity. Additional nondisplaced fracture of the right inferior pubic ramus. Moderate fluid and inflammatory change in the right lower quadrant, which is predominantly in the extra peritoneal space of Retzius, although some of this is intraperitoneal (series 3/60). Findings could represent hemorrhage versus bladder rupture. Colonic diverticulosis. Cholecystectomy. Calcified splenic granuloma. A cleft in the anterolateral spleen (series 2/51) is favored to be developmental rather than traumatic given the lack of surrounding inflammation. Renal cysts. Atrophy of the pancreas. Nondilated small and large bowel. Mild pleural thickening in the lung bases, which are otherwise clear. Moderate spondylotic degenerative change in the lumbar spine. Procedure Note Gerardo Martin M.D. - 12/29/2017 EXAM: CT ABDOMEN PELVIS WITH IV CONTRAST COMPARISON: None available. FINDINGS: Acute, minimally displaced complex right pelvic fracture extending fromthe right inferior ilium to the anterior acetabulum and ischial tuberosity. Additional nondisplaced fracture of the right inferior pubic ramus.Moderate fluid and inflammatory change in the right lower quadrant, which is predominantly in the extra peritoneal space of Retzius, although some ofthis is intraperitoneal (series 3/60). Findings could represent hemorrhageversus bladder rupture. Colonic diverticulosis. Cholecystectomy. Calcified splenic granuloma. Acleft in the anterolateral spleen (series 2/51) is favored to be developmentalrather than traumatic given the lack of surrounding inflammation. Renal cysts.Atrophy of the pancreas. Nondilated small and large bowel. Mild pleural thickeningin the lung bases, which are otherwise clear. Moderate spondyloticdegenerative change in the lumbar spine. IMPRESSION: Acute complex right-sided pelvic fracture with fluid and inflammatorychange in the right lower peritoneum and in the space of Retzius. This couldrepresent hemorrhage versus bladder rupture, and a CT cystogram could be performedif there is clinical concern for the latter. Findings discussed with Juancarlos Samano MD ([id number]) at 1:20 am on12/29/2017. I have personally reviewed the images and agree with thisinterpretation. Juancarlos Samano M.D. IMG CT PROCEDURES from Last 3 Months or Most Recently Relevant to Health Maintenance
--- OUTSIDE RECORDS SUMMARY | 2024-03-06 12:01 | XMS_ITS | Continuity of Care Document ---
Author Organization [facility] Address [address] [place] [address] Phone Care Team Providers Care Radio News Anchor Name Role Phone Nate ELIZABETH, PhD, Osvaldo Unavailable Unavai lable Allergies, Adverse Reactions, Alerts Substance Reaction Status Criticality No Known Allergies Active No Inform ation Medications Medication Instructions Dosage Effective Dates (start - stop) Status Comments SERTRALINE HCL (unknown strength) Not Available - Active GABAPENTIN (unknown strength) Not Available - Active Procedures Procedure Date Office/Outpatient Visit,[facility] 2023 Advance Directives Directive Yes / No Effective Date File Name No Information Encounters Encounter Description Practice Location Reason(s) For Visit Diagnoses Date Provider Providers Copied on Encounter [facility], [address], [place], [place], [id number], [place] tel:[phone] [facility] [place] [facility] No Information Nate Riley. [facility] [place], [address], [place], [address], [place]. tel:[phone] Office/Outpat ient Visit,[facility], [address], [place], [place], [id number], [place] tel:[phone] [facility] [place] Spinal stenosis, lumbar region with neurogenic claudicationR adiculopathy, lumbar region Nate Riley. [facility] [place], [address], [place], [address], [place]. tel:[phone] Referring Provider: Andrew Baron, [place] [address] [address], [place], [address]. tel:[phone] Family History Family Member Type Diagnosis Age At Onset Mother Problem (finding) Cancer, unknown type Payers Payer name Insurance type Covered republican ID Authoriza tion(s) Medicare [id number] [facility] Medicare Supplement BL [id number] Social History Type Description Quantity Date Captured Comments Alcohol Use Details Unknown Caffeine Use Details Unknown Tobacco Use Status No Information Smoking Status No Information Sex Male Chief Complaint And Reason For Visit No Information Reason For Referral Reason For Referral No Information History Of Present Illness Encounter Date Complaint History Of Prese nt Illness No Information Functional Status Date Functional Assessmen t No Information Instructions Date Instruction Additional Infor mation No Information Assessments Type Assessment Date No Information Patient Care Teams Name Effective Dates (start - stop) Status Members No Information
--- OUTSIDE RECORDS SUMMARY | 2024-03-06 12:01 | XMS_ITS | Encounter Summary ---
Author Organization [facility] Address [address] [place] [address] Care Team Providers Care Hospital Cleaning Specialist Name Role Phone Unavailable Primary Care Provider Unavailabl e Reason for Visit * Reason Onset Date Comments Pre-scheduling Questionnaire 12/04/2023 Encounter Details Date Type Department Care Team (Latest Contact Info) Description 12/04/2023 Clinical Communication Department of Spine in [place], [place] [address] [place] [address] Prescheduling, Provider Pre-scheduling Questionnaire Social History Tobacco Use Types Packs/Day Years [...]
--- OUTSIDE RECORDS SUMMARY | 2024-03-06 12:01 | XMS_ITS ---
Author Organization [facility] Address [address] [place] [address] Care Team Providers Care Architect Naval Name Role Phone Unavailable Unavailable Unavailable Surgery Details Not on file Complications Check Surgery Details section. Procedure Estimated Blood Loss Check Surgery Details section. Procedure Findings Check Surgery Details section. Procedure Specimens Taken Check Surgery Details section.
--- OUTSIDE RECORDS SUMMARY | 2024-03-06 12:01 | XMS_ITS | Clinical Summary ---
Author Organization [facility] Address [address] [place] [address] Care Team Providers Care Ocean Export Account Manager Name Role Phone Kely, Bronson Delano Primary Care Provider + [phone] Allergies No known active allergies Medications Medication [...] on file Medical Devices Implanted Type Area Furniture Delivery Driver Device Identifier Shelf Expiration Date Model / Serial / Lot Graft Bone Putty Dbx 10ml [id number] Implanted:Qt y: 1 on 03/01/2020 by Barrie Maldonado MD at [facility] Bone/Tissue /Biologic N/A: Spine Lumbar MUSCULOSKELETAL MASON 05/24/2021 [id number] / [id number] / Imp Scr Syn Canc Cortic Lp 6x45mm W/T25 Stardrive .645 Implanted:Qt y: 5 on 03/01/2020 by Barrie Maldonado MD at [facility] Metallic Hardware/An chor N/A: Spine Lumbar SYNTHES-STRATEC .64 5 / / LOAD 42 05 28SEP 2019 Imp Cap Syn Spinal Fixed Locking 1-Step Matrix Ns .000 Implanted:Qt y: 5 on 03/01/2020 by Barrie Maldonado MD at [facility] Metallic Hardware/An chor N/A: Spine Lumbar SYNTHES-STRATEC 632.00 0 / / LOAD 42 05 SEP 2019 Adolfo Curved 5.5x60mm Implanted:Qt y: 2 on 03/01/2020 by Barrie Maldonado MD at [facility] Metallic Hardware/An chor N/A: Spine Lumbar SYNTHES-STRATEC 636.06 0 / 636.06 0 / 28SEP 2019 42 05 Advance Directives For more information, please contact: [phone] * Full Code (Latest Code Status on File) Date Activated Date Inactivated Comments 03/01/2020 2:28 PM 03/04/2020 3:26 PM All basic an d advanced life-sustaining interventions are performed as appropriate Question Answer Comments Code status determined by: Discussion with mayra lambert/ legal decision maker Care Teams Ocean Export Account Manager Relationship Specialty Start Date End Date Bronson Edge [address] [address] PCP - General Family Practice 02/22/20
--- OUTSIDE RECORDS SUMMARY | 2024-03-06 12:01 | XMS_ITS | Referral Summary ---
Author Organization [facility] Address [address] [place] [address] Care Team Providers Care Superintendent Schools Name Role Phone Unavailable Primary Care Provider Unavailabl e Source Comments Patient records contain information from all sites at [facility]. For routine questions regarding patient records, call [phone] during business hours, M-F 8:00 AM - 5:00 PM Central Time. Record requests for emergency care only can be directed to [phone] at any time.[facility] Encounters Date Type Department Care Team Description 02/10/2024 10:52 AM CDT - 02/10/2024 11:59 PM CDT Hospital Encounter Department of Radiology, [facility] in [place], [place] [address] [place] [phone] Milton Westbrook APRN, C.N.P. Pain Back; Radiculopathy Lumbar Discharge Disposition: Home or Self Care 02/10/2024 11:00 AM CDT Comprehensive Visit Department of Orthopedic Surgery in [place], [place] [address] [place] [phone] Javon Kohler M.D. Radiculopathy Lumbar (Primary Dx); Stenosis Spinal; Stenosis Spinal Lumbar With Neurogenic Claudication; Scoliosis; Fusion Lumbar Spine Status Post; Osteoporosis 01/24/2024 2:15 PM CDT - 01/24/2024 11:59 PM CDT Hospital Encounter Department of Radiology, [facility], in [place], [place] [address] [place] [address] Milady Jaffe APRN, C.N.P., D.N.P., M.S.N. Pain Low Back Unspecified Discharge Disposition: Home or Self Care 01/24/2024 11:01 AM CDT - 01/24/2024 2:14 PM CDT Hospital Encounter Department of Radiology, [facility], in [address] [address] Milady Jaffe APRN, C.N.P., Paula.N.P., M.S.N. Pain Low Back Unspecified Discharge Disposition: Home or Self Care 01/24/2024 1:00 PM CDT Comprehensive Visit Department of Spine in [place], [place] [address] [place] [phone] Milton Westbrook APRN, LeonilaN.P. Pain Back (Primary Dx); Radiculopathy Lumbar 01/22/2024 1:00 PM CDT Clinical Communication Virtual Review in [place], [place] [address] [place] [address] Pre-visit Intake 2023 Orders Only Department of Neurologic Surgery in [address] [phone] Milady Jaffe APRN, Dk.N.P., Paula.N.P., M.S.N. Pain Low Back Unspecified (Primary Dx) from Last 3 Months Allergies No known active allergies Medications Medication [...] Fracture Acetabulum Closed Initial Left 12/29/2017 01/08/2018 Social History Tobacco Use Types Packs/Day Years [...] 01/24/2024 12:49 PM CDT Plan of Treatment Not on file Procedures Procedure Name Priority Date/Time Associated Diagnosis [...] Lumbar Spine, Neuroradiology [facility], Neuroradiology [facility], Neuroradiology [facility] N/A Computed Tomography, Compute d Tomography Impressions [...] to the left L5 neural foramen and R3amykk root in the presacral fat is indeterminant [...] arthritis. RUQ clips. Milady Jaffe APRN, Dk.N.P., D.N.P. , M.S.N. IMG DIAGNOSTIC IMAGING PROCEDURES [...] latter. Findings discussed with Juancarlos Samano MD ([id number]) at 1:20 am on 12/29/2017. I have [...] latter. Findings discussed with Juancarlos Samano MD ([id number]) at 1:20 am on12/29/2017. I have personally reviewed the images and agree with thisinterpretation. Juancarlos Samano M.D. IMG CT PROCEDURES from Last 3 Months or Most Recently Relevant to Health Maintenance
--- OUTSIDE RECORDS SUMMARY | 2024-03-06 12:01 | XMS_ITS | Encounter Summary ---
Author Organization [facility] Address [address] [place] [address] Care Team Providers Care Director Of Food And Nutrition Services Name Role Phone Unavailable Primary Care Provider Unavailabl e Reason for Referral * MRI/CAT/PET Scan (Routine) - Closed Specialty Diagnoses / Procedures Referred By Contac t Referred To Contact Radiology Diagnoses Pain Low Back Unspecified Procedures CT Lumbar Spine without IV Contrast Milady Jaffe APRN, C.N.P., D.N.P., M.S.N. [facility] Referral ID Status Reason Start Date Expiration Date Visits Re quested Visits Authorized [id number] Closed 2023 12/25/2024 1 1 Reason for Visit * MRI/CAT/PET Scan (Routine) - Closed Specialty Diagnoses / Procedures Referred By Contac t Referred To Contact Radiology Diagnoses Pain Low Back Unspecified Procedures CT Lumbar Spine without IV Contrast Milady Jaffe APRN, C.N.P., D.N.P., M.S.N. [facility] Referral ID Status Reason Start Date Expiration Date Visits Re quested Visits Authorized [id number] Closed 2023 12/25/2024 1 1 Encounter Details Date Type Department Care Team (Latest Contact Info) Description 01/24/2024 2:15 PM CDT - 01/24/2024 11:59 PM CDT Hospital Encounter Department of Radiology, [facility], in [place], [place] [address] [place] [address] Milady Jaffe APRN, C.N.P., D.N.P., M.S.N. Pain [...] Procedure Name Priority Date/Time Associated Diagnosis Comments CT LUMBAR SPINE WITHOUT IV CONTRAST RAD - Routine (most inpatients and all outpatients) 01/24/2024 3:04 PM CDT Pain Low Back Unspecified documented in this encounter Results * CT Lumbar Spine [...] to the left L5 neural foramen and X4tcyzk root in the presacral fat is indeterminant for a compressive lesionof the 5th nerve with reactive enlargement or an intrinsic mass of theleft 5th nerve. MRI lumbosacral plexus would be helpful in further characterization. Milady Jaffe APRN, C.N.P., D.N.P. , M.S.N. IMG CT PROCEDURES documented in this encounter Visit Diagnoses Diagnosis Pain Low Back Unspecified documented in this encounter
--- OUTSIDE RECORDS SUMMARY | 2024-03-06 12:01 | XMS_ITS | Clinical Summary ---
Author Organization [facility] Address [place], [place] [address] Care Team Providers Care Eating Disorder Specialist Name Role Phone Stevan Keith MD Primary Care Provider [phone] Allergies No known active allergies Medications Medication Sig Dispensed Refills Start Date End Date Status sertraline (ZOLOFT) 100 mg tablet Take 1 1/2 tabs orally once a day 0 3 Active atorvastatin (LIPITOR) 10 mg tablet Take 1 tablet by mouth once daily. 0 3 Active tamsulosin (FLOMAX) 0.4 mg capsule Take 1 capsule by mouth once daily after a meal. 0 3 Active buPROPion (WELLBUTRIN SR) 100 mg Sustained-Release tablet Take one tablet by mouth every day 0 3 Active lisinopril (PRINIVIL; ZESTRIL) 20 mg tablet Take 1 tablet by mouth once daily. 0 3 Active rizatriptan (MAXALT) 10 mg tablet Take 1 tablet by mouth every 2 hours if needed for Migraine. Max dose: 30mg per 24 hrs. 0 3 Active omeprazole (PRILOSEC) 20 mg Delayed-Release capsule Take 1 capsule by mouth once daily. 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 30 tablet 8 Active aspirin-acetaminop hen-caffeine, 250-250-65 mg, (EXCEDRIN) 250-250-65 mg tablet Max acetaminophen dose: 4000mg in 24 hrs. 0 8 Active enoxaparin (LOVENOX) 40 mg/0.4 mL injectionIndicatio ns:Closed fracture of right hip with routine healing, subsequent encounter Inject 40 mg subcutaneous once daily. 17 Syringe 8 Active wheelchairIndicati ons:Closed nondisplaced fracture of right acetabulum with routine healing, unspecified portion of acetabulum, subsequent encounter,Gait instability Wheelchair: Standard with leg rests: (Swing away) and seat cushion. Length of need: 99 months 1 Device 8 Active methylPREDNISolone (Medrol, Jose Daniel,) 4 mg tabletIndications: Lumbar radiculopathy Take by mouth as instructed per packaging. 21 Tablet 4 Active HYDROcodone-acetam inophen ([place]) (5-325 mg/tablet)Indicati ons:Lumbar radiculopathy Take 1 Tablet by mouth 3 times daily if needed for Pain. Max acetaminophen dose: 4000mg in 24 hrs. 24 Tablet 4 Active oxyCODONE (ROXICODONE) 5 mg immediate release tabletIndications: Lumbar radiculopathy,Lumb ar facet arthropathy,S/P lumbar fusion,Lumbar foraminal stenosis Take 1 Tablet (5 mg) by mouth every 4 hours if needed for Pain. 36 Tablet 4 Active oxyCODONE (ROXICODONE) 5 mg immediate release tabletIndications: Pain Take 1-2 tablets by mouth every 4 hours if needed 15 tablet 8 02/27/20 24 Discontinue d(Duplicate therapy (E-cancel not sent)) oxyCODONE (ROXICODONE) 5 mg immediate release tabletIndications: Lumbar radiculopathy,Lumb ar facet arthropathy,S/P lumbar fusion,Lumbar foraminal stenosis Take 1 Tablet (5 mg) by mouth every 4 hours if needed for Pain. 36 Tablet 4 02/27/20 24 Discontinue d(Duplicate therapy (E-cancel not sent)) Active Problems Problem Noted Date Diagnosed Date Chronic right-sided low back pain without sciati ca 01/06/2018 ACP (advance care planning) 01/05/2018 Overview (01/05/2018): Patient has identified Health Care Agent(s): No [...] Encounters Date Type Department Care Team Description 02/27/2024 Refill [facility] [address] [place] [address] Andrew Wilson MD Refill Request (oxyCODONE (ROXICODONE) 5 mg immediate release tablet/) 02/13/2024 2:00 PM CDT - 02/13/2024 11:59 PM CDT Hospital Encounter [facility] [address] [place] [address] [address] [place] [address] Andrew Wilson MD Fuller, Brent J, PT 02/13/2024 Travel 02/12/2024 Telephone [facility] [address] [place] [address] Andrew Wilson MD Questions ([place] UPDATE) 02/06/2024 10:43 AM CDT - 02/06/2024 11:59 PM CDT Hospital Encounter [facility] [address] [facility] [address] [place] [address] Andrew Wilson MD Fuller, Brent J, PT 02/06/2024 Travel 01/30/2024 3:54 PM CDT - 01/30/2024 11:59 PM CDT Hospital Encounter [facility] [address] [facility] [address] [place] [address] Andrew Wilson MD Fuller, Brent J, PT Lumbar foraminal stenosis; Lumbar radiculopathy; S/P lumbar fusion; Lumbar facet arthropathy 01/30/2024 Travel 01/29/2024 Telephone [facility] [address] [place] [address] Andrew Wilson MD Call back (Needing recemendations for physical therapists) 01/21/2024 Refill [facility] [address] [place] [address] Andrew Wilson MD Refill Request (oxyCODONE (ROXICODONE) 5 mg immediate release tablet) 01/09/2024 1:00 PM CDT Office Visit [facility] [address] [place] [address] Andrew Wilson MD Follow Up (Lumbar pain /Pain 12/10 ) 01/09/2024 Travel 12/30/2023 Telephone [facility] [address] [place] [address] Andrew Wilson MD Form 12/20/2023 Telephone [facility] [address] [place] [address] Andrew Wilson MD Questions 12/16/2023 2:45 PM CDT Ancillary Procedure [facility] [address] [place] [address] 12/16/2023 Travel 12/16/2023 Orders Only [facility] [address] [place] [address] Osvaldo Sullivan MD <No scans attached> 12/11/2023 Telephone [facility] [address] [place] [address] Saba Jackson MD Results 12/11/2023 Refill [facility] [address] [place] [address] Andrew Wilson MD Refill Request 12/09/2023 11:45 AM CDT Orders Only [facility] [address] [place] [address] Lab, [facility] 12/09/2023 Travel 12/06/2023 1:15 PM CDT Ancillary Procedure [facility] [address] [address] 12/06/2023 Telephone [facility] [address] [place] [address] Andrew Wilson MD Results 12/06/2023 Travel from Last 3 Months Family History Medical History Relation Name Comments Heart Disease Father saba CHF Other Mother Jenn Alzheimer's Relation Name Status Comments Brother 1 christi Alive Brother 2 saba Alive Father saba (Age 93) Mother Jenn (Age 82) Social History Tobacco Use Types Packs/Day Years Used Date Smoking Tobacco: Former Cigarettes Q uit: 06/03/1974 Tobacco Cessation:Counseling Given: Yes Alcohol Use Standard Drinks/Week Comments No 0 [...] Sign Reading Time Taken Comments Blood Pressure 104/70 01/09/2024 12:59 PM CDT Pulse 87 01/09/2024 12:59 PM CDT Temperature 36.7 ??C (98 ??F) 11/14/2023 2:04 PM CDT Respiratory Rate 18 05/15/2015 11:00 AM SLITTER SCORER CUT OFF OPERATOR Oxygen Saturation 95% 01/09/2024 12:59 PM CDT Inhaled Oxygen Concentration - - Weight 97.5 kg (215 lb) 01/09/2024 12:59 PM CDT Height 180.3 cm (5' 11) 05/15/2015 10:26 AM SLITTER SCORER CUT OFF OPERATOR Body Mass Index 29.99 05/15/2015 10:26 AM SLITTER SCORER CUT OFF OPERATOR Plan of Treatment Upcoming Encounters Date Type Department Care Team (Late st Contact Info) Description 03/17/2024 10:00 AM CDT Office Visit [facility] [address] [place] [address] Andrew Wilson MD [address] [place] [address] Health Maintenance Due Date Last Done Comments Tdap 12/27/1956 Depression screening for age 12+ 1956 BMI (ht and wt on same day) for age 18+ 1962 Tetanus booster 1964 Zoster (shingles) series for age 50+ (1 of 2) 1994 Medicare Wellness for age 65+ 2009 Pneumococcal series for age 65+ (1 of 1 - PCV) 2009 RSV vaccine for adults or (1 - 1-dose 75+ series) 12/27/2019 COVID-19 vaccine series ( season) 2024 03/25/2023, 03/14/2022, 10/11/2021, Additional history [...] stenosis Lumbar facet arthropathy S/P lumbar fusion ANTI HCV Today 01/06/2018 3:38 PM CDT [...] 17 <20 mm/hr 2023 4:02 PM CDT [facility] Blood BLOOD SPECIMEN / Unknown Venipuncture / Unknown 12/09/2023 11:47 AM CDT 12/09/2023 11:47 AM CDT Andrew Wilson MD HEMATOLOGY [facility] [address] [place] [address], * (ABNORMAL) CBC WITH AUTO DIFFERENTIAL (12/09/2023 11:47 AM CDT) WHITE BLOOD COUNT 10.0 4.5 - 11.0 thou/cu mm 12/09/2023 11:50 AM CDT [facility] RED BLOOD COUNT 4.76 4.30 - 5.90 mil/cu mm 12/09/2023 11:50 AM CDT [facility] HEMOGLOBIN 13.7 13.5 - 17.5 g/dL 12/09/2023 11:50 AM CDT [facility] HEMATOCRIT 41.4 37.0 - 53.0 % 12/09/2023 11:50 AM CDT [facility] MCV 87 80 - 100 fL 12/09/2023 11:50 AM CDT [facility] MCH 28.8 26.0 - 34.0 pg 12/09/2023 11:50 AM CDT [facility] MCHC 33.1 32.0 - 36.0 g/dL 12/09/2023 11:50 AM CDT [facility] RDW 15.9(H) 11.5 - 15.5 % 12/09/2023 11:50 AM CDT [facility] PLATELET COUNT 239 140 - 440 thou/cu mm 12/09/2023 11:50 AM CDT [facility] MPV 10.1 6.5 - 11.0 fL 12/09/2023 11:50 AM CDT [facility] % NEUT 68.1 % 12/09/2023 11:50 AM CDT [facility] % LYMPH 22.5 % 12/09/2023 11:50 AM CDT [facility] % MONO 9.1 % 12/09/2023 11:50 AM CDT [facility] % EOS 0.0 % 12/09/2023 11:50 AM CDT [facility] % BASO 0.3 % 12/09/2023 11:50 AM CDT [facility] ABSOLUTE NEUTROPHILS 6.8 1.7 - 7.0 thou/cu mm 12/09/2023 11:50 AM CDT [facility] ABSOLUTE LYMPHOCYTES 2.3 0.9 - 2.9 thou/cu mm 12/09/2023 11:50 AM CDT [facility] ABSOLUTE MONOCYTES 0.9(H) <0.9 thou/cu mm 12/09/2023 11:50 AM CDT [facility] ABSOLUTE EOSINOPHILS 0.0 <0.5 thou/cu mm 12/09/2023 11:50 AM CDT [facility] ABSOLUTE BASOPHILS 0.0 <0.3 thou/cu mm 12/09/2023 11:50 AM CDT [facility] Blood BLOOD SPECIMEN / Unknown Venipuncture / Unknown 12/09/2023 11:47 AM CDT 12/09/2023 11:47 AM CDT Narrative [facility] - 12/09/2023 11:50 AM CDT This procedure was originally ordered at [facility]. Andrew Wilson MD HEMATOLOGY [facility] [address] [place] [address], * LYME SCREEN W/REFLEX (12/09/2023 11:47 AM CDT) [facility] LYME SCREEN W/REFLEX Negative Negative 12/10/2023 8:01 AM CDT [facility] Comment: No laboratory evidence of [...] Wilson MD SEND OUTS Performing Organization Address City/[facility]/ZIP Co de Phone Number [facility] [address] [place] [address], * (ABNORMAL) C-REACTIVE PROTEIN (12/09/2023 11:47 AM CDT) C-REACTIVE PROTEIN 0.5(H) <0.5 mg/dL 12/09/2023 7:50 PM CDT [facility] Blood BLOOD SPECIMEN / Unknown Venipuncture / Unknown 12/09/2023 11:47 AM CDT 12/09/2023 11:47 AM CDT Andrew Wilson MD CHEMISTRY Performing Organization Address [facility]/ZIP Co de Phone Number [facility] [address] [place] [address], * (ABNORMAL) BASIC METABOLIC PANEL (12/09/2023 11:47 AM CDT) SODIUM 133(L) 136 - 145 mmol/L 12/09/2023 7:50 PM CDT [facility] POTASSIUM 4.8 3.5 - 5.1 mmol/L 12/09/2023 7:50 PM CDT [facility] CHLORIDE 97(L) 98 - 107 mmol/L 12/09/2023 7:50 PM CDT [facility] CO2,TOTAL 24 22 - 29 mmol/L 12/09/2023 7:50 PM CDT [facility] ANION GAP 12 5 - 18 12/09/2023 7:50 PM CDT [facility] GLUCOSE 146(H) 70 - 99 mg/dL 12/09/2023 7:50 PM CDT [facility] CALCIUM 9.4 8.8 - 10.2 mg/dL 12/09/2023 7:50 PM CDT [facility] BUN 30(H) 8 - 23 mg/dL 12/09/2023 7:50 PM CDT [facility] CREATININE 1.31(H) 0.70 - 1.20 mg/dL 12/09/2023 7:50 PM CDT [facility] BUN/CREAT RATIO 23(H) 10 - 20 7:50 PM CDT [facility] eGFR 56(L) >90 mL/min/1.7 3m2 12/09/2023 7:50 PM CDT [facility] Comment:As of 2021, eG FR [...] 11:47 AM CDT Andrew Wilson MD [facility] [address] [place] [address], * MR SPINE LUMBAR WWO (12/06/2023 1:30 PM CDT) Anatomical Region Laterality Modality Spine, LUMBAR SPINE Magnetic Res onance 12/06/2023 2:59 PM CDT Narrative 12/06/2023 2:59 PM CDT For Patients: ??As a result of the 21st Century Cures Act, medical imaging exams and [...] For Patients: As a result of the 21st Century Cures Act, medical imagingexams and procedure reports [...] (Electronically Signed) Andrew Wilson MD MR * ANTI HCV (01/06/2018 3:38 PM CDT) HEPATITIS C ANTIBODY Non-React glo Non-React glo 01/06/2018 8:19 PM CDT [facility] Comment:Antibodies to HCV no t detected; does not exclude the possibility of exposure to HCV. Blood BLOOD SPECIMEN / Unknown Venipuncture / Unknown 01/06/2018 3:38 PM CDT 01/06/2018 3:39 PM CDT Margarette Marrero MD SEND OUTS [facility] [address] [place] [address], [place] from Last 3 Months or Most Recently Relevant to Health Maintenance Care Teams Eating Disorder Specialist Relationship Specialty Start Date End Date Stevan Keith MD [address] [place] [address] PCP - General Family Practice 01/09/24
--- OUTSIDE RECORDS SUMMARY | 2024-03-06 12:01 | XMS_ITS | Encounter Summary ---
Author Organization [facility] Address [address] [place] [address] Care Team Providers Care Client Server Programmer Name Role Phone Unavailable Primary Care Provider Unavailabl e Reason for Visit * Reason Onset Date Comments [facility] - Outside Materials 12/04/2023 OSM 12/04/2023 SPN Encounter Details Date Type Department Care Team (Latest Contact Info) Description 12/04/2023 Clinical Communication Department of Spine in [place], [place] [address] [place] [address] Prescheduling, Provider [facility] - Outside Materials; [facility] (SPN/) Social History Tobacco Use Types Packs/Day Years [...]
--- OUTSIDE RECORDS SUMMARY | 2024-03-06 12:02 | XMS_ITS | Referral Summary ---
Author Organization [facility] Address [address] [place] [address] Care Team Providers Care Flight Deck Officer Name Role Phone Kely Bronson Wick Primary Care Provider + [phone] Allergies No known active allergies Medications Medication [...] on file Medical Devices Implanted Type Area Pipe Foreman Device Identifier Shelf Expiration Date Model / Serial / Lot Graft Bone Putty Dbx 10ml [id number] Implanted:Qt y: 1 on 03/01/2020 by Barrie Maldonado MD at [facility] Bone/Tissue /Biologic N/A: Spine Lumbar MUSCULOSKELETAL MASON 05/24/2021 [id number] / [id number] / Imp Scr Syn Canc Cortic Lp 6x45mm W/T25 Stardrive .645 Implanted:Qt y: 5 on 03/01/2020 by Barrie Maldonado MD at [facility] Metallic Hardware/An chor N/A: Spine Lumbar SYNTHES-STRATEC .64 5 / / LOAD 42 05 28SEP 2019 Imp Cap Syn Spinal Fixed Locking 1-Step Matrix Ns .000 Implanted:Qt y: 5 on 03/01/2020 by Barrie Maldonado MD at [facility] Metallic Hardware/An chor N/A: Spine Lumbar SYNTHES-STRATEC 632.00 0 / / LOAD 42 05 SEP 2019 Adolfo Curved 5.5x60mm Implanted:Qt y: 2 on 03/01/2020 by Barrie Maldonado MD at [facility] Metallic Hardware/An chor N/A: Spine Lumbar SYNTHES-STRATEC 636.06 0 / 636.06 0 / 28SEP 2019 42 05 Advance Directives For more information, please contact: [phone] * Full Code (Latest Code Status on File) Date Activated Date Inactivated Comments 03/01/2020 2:28 PM 03/04/2020 3:26 PM All basic an d advanced life-sustaining interventions are performed as appropriate Question Answer Comments Code status determined by: Discussion with mayra lambert/ legal decision maker Care Teams Flight Deck Officer Relationship Specialty Start Date End Date [place] [place] [address] [address] PCP - General Family Practice 02/22/20
== END 2024-03-06 11:58 | disposition home or self-care (01) ==
LOC: LKVREF 11:58
PROVIDERS: PCP Family Medicine; Visit Provider Family Medicine
DX: R97.20 Elevated prostate specific antigen [PSA] (principal); Z87.19 Personal history of other diseases of the digestive system
CPT/HCPCS: 84153; 84154

== ENCOUNTER 2024-03-17 09:33 | Outpatient (CLI) | payer MEDICARE, BC, SELFPAY ==
--- OUTSIDE RECORDS SUMMARY | 2024-03-17 09:38 | XMS_ITS | Encounter Summary ---
Author Organization [facility] Address [address] [place] [address] Care Team Providers Care Leases And Land Supervisor Name Role Phone Unavailable Primary Care Provider Unavailabl e Reason for Referral * Outpatient (Routine) - Closed Specialty Diagnoses / Procedures Referred By Contac t Referred To Contact Diagnoses Pain Low Back Unspecified Procedures DX Lumbar Spine 4+ Views Milady Jaffe APRN, C.N.P., D.N.P., M.S.N. Phone: tel: fax: [facility] Referral ID Status Reason Start Date Expiration Date Visits Re quested Visits Authorized [id number] Closed 2023 12/25/2024 1 1 Reason for Visit * Outpatient (Routine) - Closed Specialty Diagnoses / Procedures Referred By Contac t Referred To Contact Diagnoses Pain Low Back Unspecified Procedures DX Lumbar Spine 4+ Views Milady Jaffe APRN, C.N.P., D.N.P., M.S.N. Phone: tel: fax: [facility] Referral ID Status Reason Start Date Expiration Date Visits Re quested Visits Authorized [id number] Closed 2023 12/25/2024 1 1 Encounter Details Date Type Department Care Team (Latest Contact Info) Description 01/24/2024 11:01 AM CDT - 01/24/2024 2:14 PM CDT Hospital Encounter Department of Radiology, [facility], in [place], [place] [address] [place] [address] Milady Jaffe APRN, C.N.P., D.N.P., M.S.N. [address] [place] [address] Pain Low Back Unspecified Discharge Disposition: Home [...] Assigned at Male 02/12/2018 8:22 AM CDT Legal Sex Male 9:20 PM CDT Gender Identity Male 02/12/2018 8:22 AM CDT Sexual Orientation Straight 02/12/2018 8: 22 AM CDT documented as of this encounter Medications at Time of Discharge acetaminophen (TYLENOL) 500 mg tablet Take 2 [...] gabapentin (NEURONTIN) 100 mg capsule 2 02/05/2018 lisinopril-hydro CHLOROthiazide 10-12.5 mg per tablet Take 1 tablet [...] and extension. SI joint arthritis. RUQ clips. us Milady Jaffe APRN, C. N.P., D.N.P., M.S.N. IMG DIAGNOSTIC IMAGING PROCEDURES Final Result documented in this encounter Visit Diagnoses Diagnosis Pain Low Back Unspecified documented in this encounter
--- OUTSIDE RECORDS SUMMARY | 2024-03-17 09:38 | XMS_ITS | Encounter Summary ---
Author Organization [facility] Address [address] [place] [address] Care Team Providers Care Sole Trimmer Name Role Phone Unavailable Primary Care Provider Unavailabl e Reason for Visit * Reason Onset Date Comments [facility] - Outside Materials 12/04/2023 [facility] 12/04/2023 [facility] Encounter Details Date Type Department Care Team (Latest Contact Info) Description 12/04/2023 Clinical Communication Department of Spine in [place], [place] [address] [place] [address] Prescheduling, Provider [facility] - Outside Materials; [facility] [...]
--- OUTSIDE RECORDS SUMMARY | 2024-03-17 09:38 | XMS_ITS | Encounter Summary ---
Author Organization [facility] Address [address] [place] [address] Care Team Providers Care Airset Caster Name Role Phone Unavailable Primary Care Provider Unavailabl e Reason for Referral * Outpatient (Routine) - Closed Specialty Diagnoses / Procedures Referred By Contac t Referred To Contact Diagnoses Pain Back Radiculopathy Lumbar Procedures DX Entire Spine Scoliosis 2-3 Views Milton Westbrook APRN, C.N.P. [address] [place] [phone] Phone: tel: fax: [facility] Referral ID Status Reason Start Date Expiration Date Visits Re quested Visits Authorized [id number] Closed 01/24/2024 01/23/2025 1 1 Reason for Visit * Appointment Request (Routine) - Closed Specialty Diagnoses / Procedures Referred By Contac t Referred To Contact Spine Diagnoses Pain Back Lumbar Pain Leg Left Referral ID Status Reason Start Date Expiration Date Visits Re quested Visits Authorized [id number] Closed 11/29/2023 11/28/2024 2 2 Encounter Details Date Type Department Care Team (Latest Contact Info) Description 01/24/2024 1:00 PM CDT Comprehensive Visit Department of Spine in [place], [place] [address] [place] [phone] Milton Westbrook APRN, C.N.P. [address] [place] [phone] Pain Back (Primary Dx); Radiculopathy Lumbar Social [...] Mr. Hunt is a 78-year-old patient from [place], [place], [facility] [...] relief. He met witha surgeon in the [facility] offered him the options of pursuing a [...] lumbar paraspinal muscles at L5-S1. 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 He has [...] L3 through L5 instrumented fusion performed at [facility] facility in 2021 #3 Type 2 diabetes PLAN: [...] to the patient today including chart review, tqdn-ox-sunk evaluation, care coordination, and documentation. documented in [...] pubic bone. Surgical clips rightabdomen. Milton Westbrook APRN C.N.P. IMG DIAGNOSTIC IMAGIN G PROCEDURES Final Result documented in this encounter Visit Diagnoses Diagnosis Pain Back- Primary Radiculopathy Lumbar Pain Back Radiculopathy Lumbar documented in this encounter
--- OUTSIDE RECORDS SUMMARY | 2024-03-17 09:38 | XMS_ITS | Encounter Summary ---
Author Organization [facility] Address [address] [place] [address] Care Team Providers Care Pot Holder Binder Name Role Phone Unavailable Primary Care Provider Unavailabl e Reason for Visit * Reason Onset Date Comments Pre-visit Intake 01/22/2024 Encounter Details Date Type Department Care Team (Latest Contact Info) Description 01/22/2024 1:00 PM CDT Clinical Communication Virtual Review in [place], [place] [address] [place] [address] Pre-visit Intake Social History Tobacco Use Types [...]
--- OUTSIDE RECORDS SUMMARY | 2024-03-17 09:38 | XMS_ITS ---
Author Organization [facility] Address [address] [place] [address] Care Team Providers Care Assistant Baseball Coach Name Role Phone Unavailable Unavailable Unavailable Surgery Details Not on file Complications Check Surgery Details section. Procedure Estimated Blood Loss Check Surgery Details section. Procedure Findings Check Surgery Details section. Procedure Specimens Taken Check Surgery Details section.
--- OUTSIDE RECORDS SUMMARY | 2024-03-17 09:38 | XMS_ITS | Encounter Summary ---
Author Organization [facility] Address [address] [place] [address] Care Team Providers Care Office Technologist Name Role Phone Unavailable Primary Care Provider Unavailabl e Reason for Referral * Outpatient (Routine) - Closed Specialty Diagnoses / Procedures Referred By Contac t Referred To Contact Diagnoses Pain Back Radiculopathy Lumbar Procedures DX Entire Spine Scoliosis 2-3 Views Milton Westbrook APRN, C.N.P. [address] [place] [phone] Phone: tel: fax: [facility] Referral ID Status Reason Start Date Expiration Date Visits Re quested Visits Authorized [id number] Closed 01/24/2024 01/23/2025 1 1 Reason for Visit * Outpatient (Routine) - Closed Specialty Diagnoses / Procedures Referred By Contac t Referred To Contact Diagnoses Pain Back Radiculopathy Lumbar Procedures DX Entire Spine Scoliosis 2-3 Views Milton Westbrook APRN, C.N.P. [address] [place] [phone] Phone: tel: fax: [facility] Referral ID Status Reason Start Date Expiration Date Visits Re quested Visits Authorized [id number] Closed 01/24/2024 01/23/2025 1 1 Encounter Details Date Type Department Care Team (Latest Contact Info) Description 02/10/2024 10:52 AM CDT - 02/10/2024 11:59 PM CDT Hospital Encounter Department of Radiology, [facility], in [place], [place] [address] [place] [address] Milton Westbrook APRN, C.N.P. [address] [place] [address] Pain Back; Radiculopathy Lumbar Discharge Disposition: Home [...] (three) times a day. 270 capsule 02/10/2024 4 lisinopril-hydro CHLOROthiazide 10-12.5 mg per tablet Take [...] deformities right pubic bone. Surgical clips rightabdomen. us Milton Westbrook APRN, C.N.P. IMG DIAGNOSTIC IMAGIN G PROCEDURES Final Result documented in this encounter Visit Diagnoses Diagnosis Pain Back Radiculopathy Lumbar documented in this encounter
--- OUTSIDE RECORDS SUMMARY | 2024-03-17 09:38 | XMS_ITS | Encounter Summary ---
Author Organization [facility] Address [address] [place] [address] Care Team Providers Care County Engineer Name Role Phone Unavailable Primary Care Provider Unavailabl e Reason for Referral * Outpatient (Routine) - Closed Specialty Diagnoses / Procedures Referred By Contac t Referred To Contact Diagnoses Pain Low Back Unspecified Procedures DX Lumbar Spine 4+ Views Milady Jaffe APRN, C.N.P., D.N.P., M.S.N. Phone: tel: fax: [facility] Referral ID Status Reason Start Date Expiration Date Visits Re quested Visits Authorized [id number] Closed 2023 12/25/2024 1 1 * MRI/CAT/PET Scan (Routine) - Closed Specialty Diagnoses / Procedures Referred By Contac t Referred To Contact Radiology Diagnoses Pain Low Back Unspecified Procedures CT Lumbar Spine without IV Contrast Milady Jaffe APRN, C.N.P., D.N.P., M.S.N. Phone: tel: fax: [facility] Referral ID Status Reason Start Date Expiration Date Visits Re quested Visits Authorized [id number] Closed 2023 12/25/2024 1 1 Encounter Details Date Type Department Care Team (Late st Contact Info) Description 2023 Orders Only Department of Neurologic Surgery in [place], [place] [address] [place] [address] Milady Jaffe APRN, C.NBalta, Elie., M.S.N. [address] [place] [address] Pain Low Back Unspecified (Primary Dx) Social [...] Region Laterality Modality Lumbar Spine, Neuroradiology [facility], [facility] N[facility] Computed Tomography, Compute d Tomography Impressions [...] to the left L5 neural foramen and X3ezaep root in the presacral fat is indeterminant for a compressive lesionof the 5th nerve with reactive enlargement or an intrinsic mass of theleft 5th nerve. MRI lumbosacral plexus would be helpful in further characterization. Milady Jaffe APRN, C.N.P., D.N.P., M.S.N. IMG CT PROCEDURES Final Result * DX Lumbar Spine 4+ Views (01/24/2024 [...] joint arthritis. RUQ clips. Milady Jaffe APRN, C. N.P., D.N.P., M.S.N. IMG DIAGNOSTIC IMAGING PROCEDURES Final Result documented in this encounter Visit Diagnoses Diagnosis Pain Low Back Unspecified- Primary Pain Low Back Unspecified Pain Low Back Unspecified documented in this encounter
--- OUTSIDE RECORDS SUMMARY | 2024-03-17 09:38 | XMS_ITS | Clinical Summary ---
Author Organization [facility] Address [address] [place] [address] Care Team Providers Care Quarry Worker Name Role Phone Unavailable Primary Care Provider Unavailabl e Source Comments Patient records contain information from all sites at [facility]. For routine questions regarding patient records, call [phone] during business hours, M-F 8:00 AM - 5:00 PM Central Time. Record requests for emergency care only can be directed to [phone] at any time.[facility] Allergies No known active allergies Medications ALPRAZolam (XANAX) 0.5 mg tablet Take 0.5 mg by mouth 2 (two) times a day as needed for anxiety. Active atorvastatin (LIPITOR) 10 mg tablet Take 10 mg by mouth. 3 Active buPROPion (WELLBUTRIN SR) 100 mg 12 hr tablet Take 1 tablet by mouth daily. 3 Active finasteride (PROSCAR) 5 mg tablet Take 1 tablet by mouth daily. 1 8 Active sertraline (ZOLOFT) 100 mg tablet Take 1 tablet by mouth daily. 3 Active acetaminophen (TYLENOL) 500 mg tablet Take 2 tablets (1,000 mg total) by mouth 4 (four) times a day. For pain - this medication may be purchased over the counter 8 Active oxyCODONE (ROXICODONE) 5 mg immediate release tablet Take 1-2 tablets (5-10 mg total) by mouth every 4 (four) hours as needed for pain. 5 mg for pain 3-6 10 mg for pain 7-10 40 tablet 07/30/201 8 Active gabapentin (NEURONTIN) 100 mg capsule 2 8 Active lisinopril-hydr oCHLOROthiazide 10-12.5 mg per tablet Take 1 tablet by mouth daily. Active esomeprazole (NexIUM) 5 mg packet Take by mouth daily before morning meal. Active metFORMIN XR (Glucophage-XR) 500 mg 24 hr tablet Take 500 mg by mouth daily with morning meal. Active gabapentin (Neurontin) 300 mg capsule Take 1 capsule (300 mg total) by mouth 3 (three) times a day. 270 capsule 4 05/10/20 24 Active Active Problems Problem Noted Date Diagnosed [...] Comprehensive Visit Department of Orthopedic Surgery in [place], [place] [address] [place] [phone] Javon Kohler M.D. Radiculopathy Lumbar (Primary Dx); Stenosis Spinal; Stenosis Spinal Lumbar With Neurogenic Claudication; Scoliosis; Fusion Lumbar Spine Status Post; Osteoporosis 02/10/2024 10:52 AM CDT - 02/10/2024 11:59 PM CDT Hospital Encounter Department of Radiology, [place], [place] [address] [place] [phone] Milton Westbrook APRN, C.N.P. Pain Back; Radiculopathy Lumbar Discharge Disposition: Home or Self Care 01/24/2024 2:15 PM CDT - 01/24/2024 11:59 PM CDT Hospital Encounter Department of Radiology, [facility], in [place], [place] [address] [place] [address] Milady Jaffe APRN, C.N.P., D.N.P., M.S.N. Pain Low Back Unspecified Discharge Disposition: Home or Self Care 01/24/2024 1:00 PM CDT Comprehensive Visit Department of Spine in [place], [place] [address] [place] [phone] Milton Westbrook APRN, Dk.N.P. Pain Back (Primary Dx); Radiculopathy Lumbar 01/24/2024 11:01 AM CDT - 01/24/2024 2:14 PM CDT Hospital Encounter Department of Radiology, [facility], in [place], [place] [address] [place] [phone] Milady Jaffe APRN, C.N.P., D.N.P., M.S.N. Pain Low Back Unspecified Discharge Disposition: Home or Self Care 01/22/2024 1:00 PM CDT Clinical Communication Virtual Review in [place], [place] [address] [place] [address] Pre-visit Intake 2023 Orders Only Department of Neurologic Surgery in [place], [place] [address] [place] [phone] Milady Jaffe APRN, C.N.P., D.N.P., M.S.N. Pain [...] 11:46 AM CDT Pain Low Back Unspecified BASIC METABOLIC PANEL, S/P Routine 12/30/2017 3:16 [...] clips rightabdomen. Milton Westbrook APRN, C.N.P. IMG DIAGNOSTIC IMAGIN G PROCEDURES Final Result * CT Lumbar Spine without IV Contrast (01/24/2024 3:04 PM CDT) Anatomical Region Laterality Modality Lumbar Spine, Neuroradiology [facility], Neuroradiology [facility], Neuroradiology [facility] N/A Computed Tomography, Compute d Tomography [...] to the left L5 neural foramen and O8mnlal root in the presacral fat is indeterminant for a compressive lesionof the 5th nerve with reactive enlargement or an intrinsic mass of theleft 5th nerve. MRI lumbosacral plexus would be helpful in further characterization. us Milady Jaffe APRN, C.N.P., D.N.P., M.S.N. IMG [...] M.S.N. IMG DIAGNOSTIC IMAGING PROCEDURES Final Result * Basic Metabolic Panel (12/30/2017 3:16 AM CDT) Pathologist [facility] Potassium, S 4.1 3.6 - 5.2 mmol/L 12/30/2017 4:37 AM CDT [facility] Sodium, S 138 135 - 145 mmol/L 12/30/2017 4:37 AM CDT [facility] Chloride, S 101 98 - 107 mmol/L 12/30/2017 4:37 AM CDT [facility] Bicarbonate, S 24 22 - 29 mmol/L 12/30/2017 4:37 AM CDT [facility] Anion Gap 13 7 - 15 12/30/2017 4:37 AM CDT [facility] BUN (Blood Urea Nitrogen), S 20 8 - 24 mg/dL 12/30/2017 4:37 AM CDT [facility] Creatinine 1.02 0.74 - 1.35 mg/dL 12/30/2017 4:37 AM CDT [facility] eGFR-Non Black/ 73 >=60 mL/min/BSA 12/30/2017 4:37 AM CDT [facility] Comment: ----ADDITIONAL INFORMATION---- Estimated GFR calculated using the 2009 CKD_EPI creatinine equation. eGFR-Black/Afri can Iranian 84 >=60 mL/min/BSA 12/30/2017 4:37 AM CDT [facility] Comment: ----ADDITIONAL INFORMATION---- Estimated GFR calculated using the 2009 CKD_EPI creatinine equation. Calcium, Total, S 8.9 8.8 - 10.2 mg/dL 12/30/2017 4:37 AM CDT [facility] Glucose, S 120 70 - 140 mg/dL 12/30/2017 4:37 AM CDT [facility] Blood (Blood, Venous) 12/30/2017 3:16 AM CDT 12/30/2017 4:05 AM CDT us Milady Smith APRN, C.N.P., M.S.N. LAB BLOO D ADD-ON Final Result [facility] [address] * CT Abdomen Pelvis with IV Contrast [...] latter. Findings discussed with Juancarlos Samano MD ([id number]) at 1:20 am on 12/29/2017. I have [...] latter. Findings discussed with Juancarlos Samano MD ([id number]) at 1:20 am on12/29/2017. I have personally reviewed the images and agree with thisinterpretation. us Juancarlos Samano M.D. IMG CT PROCEDURES Final Res ult from Last 3 Months or Most Recently Relevant to Health Maintenance Insurance MEDICARE [facility] [place] [id number]
--- OUTSIDE RECORDS SUMMARY | 2024-03-17 09:38 | XMS_ITS | Referral Summary ---
Author Organization [facility] Address [address] [place] [address] Care Team Providers Care Jboss Developer Name Role Phone Unavailable Primary Care Provider Unavailabl e Source Comments Patient records contain information from all sites at [facility]. For routine questions regarding patient records, call [phone] during business hours, M-F 8:00 AM - 5:00 PM Central Time. Record requests for emergency care only can be directed to [phone] at any time.[facility] Encounters Date Type Department Care Team Description 02/10/2024 10:52 AM CDT - 02/10/2024 11:59 PM CDT Hospital Encounter Department of Radiology, [facility] in [place], [place] [address] [place] [phone] Milton Westbrook APRN, C.N.P. Pain Back; Radiculopathy Lumbar Discharge Disposition: Home or Self Care 02/10/2024 11:00 AM CDT Comprehensive Visit Department of Orthopedic Surgery in [place], [place] [address] [place] [phone] Javon Kohler M.D. Radiculopathy Lumbar (Primary Dx); Stenosis Spinal; Stenosis Spinal Lumbar With Neurogenic Claudication; Scoliosis; Fusion Lumbar Spine Status Post; Osteoporosis 01/24/2024 2:15 PM CDT - 01/24/2024 11:59 PM CDT Hospital Encounter Department of Radiology, [facility], in [place], [place] [address] [place] [address] Milady Jaffe APRN, C.N.P., D.N.P., M.S.N. Pain Low Back Unspecified Discharge Disposition: Home or Self Care 01/24/2024 11:01 AM CDT - 01/24/2024 2:14 PM CDT Hospital Encounter Department of Radiology, [facility], in [place], [place] [address] [place] [phone] Milady Jaffe APRN, C.N.P., Paula.N.P., M.S.N. Pain Low Back Unspecified Discharge Disposition: Home or Self Care 01/24/2024 1:00 PM CDT Comprehensive Visit Department of Spine in [place], [place] [address] [place] [phone] Milton Westbrook APRN, LeonilaN.P. Pain Back (Primary Dx); Radiculopathy Lumbar 01/22/2024 1:00 PM CDT Clinical Communication Virtual Review in [place], [place] [address] [place] [address] Pre-visit Intake 2023 Orders Only Department of Neurologic Surgery in [place], [place] [address] [place] [phone] Milady Jaffe APRN, Dk.N.P., Paula.N.P., M.S.N. Pain Low Back Unspecified (Primary Dx) from Last 3 Months Allergies No known active allergies Medications ALPRAZolam [...] 10 mg for pain 7-10 40 tablet 8 Active gabapentin (NEURONTIN) 100 mg capsule [...] Region Laterality Modality Lumbar Spine, Neuroradiology [facility], Neuroradiology [facility], Neuroradiology [facility] N/A Computed Tomography, Compute d Tomography [...] to the left L5 neural foramen and Q7zdxvi root in the presacral fat is indeterminant [...] Basic Metabolic Panel (12/30/2017 3:16 AM CDT) [facility] Potassium, S 4.1 3.6 - 5.2 mmol/L 12/30/2017 4:37 AM CDT [facility] Sodium, S 138 135 - 145 mmol/L 12/30/2017 4:37 AM CDT [facility] Chloride, S 101 98 - 107 mmol/L 12/30/2017 4:37 AM CDT [facility] Bicarbonate, S 24 22 - 29 mmol/L 12/30/2017 4:37 AM CDT [facility] Anion Gap 13 7 - 15 12/30/2017 4:37 AM CDT [facility] BUN (Blood Urea Nitrogen), S 20 8 - 24 mg/dL 12/30/2017 4:37 AM CDT [facility] Creatinine 1.02 0.74 - 1.35 mg/dL 12/30/2017 4:37 AM CDT [facility] eGFR-Non Black/ 73 >=60 mL/min/BSA 12/30/2017 4:37 AM CDT [facility] Comment: ----ADDITIONAL INFORMATION---- Estimated GFR calculated using the 2009 CKD_EPI creatinine equation. eGFR-Black/Afri can Guinean 84 >=60 mL/min/BSA 12/30/2017 4:37 AM CDT [facility] Comment: ----ADDITIONAL INFORMATION---- Estimated GFR calculated using the 2009 CKD_EPI creatinine equation. Calcium, Total, S 8.9 8.8 - 10.2 mg/dL 12/30/2017 4:37 AM CDT [facility] Glucose, S 120 70 - 140 mg/dL 12/30/2017 4:37 AM CDT [facility] Blood (Blood, Venous) 12/30/2017 3:16 AM CDT 12/30/2017 4:05 AM CDT us Milady Smith APRN, C.N.P., M.S.N. LAB BLOO D ADD-ON Final Result [facility] [address] [place], [place] [address] * CT Abdomen Pelvis with IV Contrast [...] latter. Findings discussed with Juancarlos Samano MD ([id number]) at 1:20 am on 12/29/2017. I have [...] latter. Findings discussed with Juancarlos Samano MD ([id number]) at 1:20 am on12/29/2017. I have personally reviewed the images and agree with thisinterpretation. us Juancarlos Samano M.D. IMG CT PROCEDURES Final Res ult from Last 3 Months or Most Recently Relevant to Health Maintenance Insurance MEDICARE [facility] [place] [address]
--- OUTSIDE RECORDS SUMMARY | 2024-03-17 09:38 | XMS_ITS | Encounter Summary ---
Author Organization [facility] Address [address] [place] [address] Care Team Providers Care Precision Market Insights Name Role Phone Unavailable Primary Care Provider Unavailabl e Reason for Referral * MRI/CAT/PET Scan (Routine) - Authorized Specialty Diagnoses / Procedures Referred By Contac t Referred To Contact Radiology Diagnoses Radiculopathy Lumbar Procedures MR Thoracic Spine without IV Contrast Kevin Lara M.D. [address] [place] [address] Phone: tel: fax: [facility] Referral ID Status Reason Start Date Expiration Date V isits Requested Visits Authorized [id number] Authorized 02/10/2024 02/09/2025 1 1 * MRI/CAT/PET Scan (Routine) - Authorized Specialty Diagnoses / Procedures Referred By Contac t Referred To Contact Radiology Diagnoses Radiculopathy Lumbar Procedures MR Cervical Spine without IV Contrast Kevin Lara M.D. [address] [place] [address] Phone: tel: fax: [facility] Referral ID Status Reason Start Date Expiration Date V isits Requested Visits Authorized [id number] Authorized 02/10/2024 02/09/2025 1 1 * Outpatient (Routine) - Authorized Specialty Diagnoses / Procedures Referred By Contac t Referred To Contact Diagnoses Radiculopathy Lumbar Procedures FL Lumbar Spine Transforaminal Epidural Injection Left Kevin Lara M.D. [address] [place] [address] Phone: tel: fax: [facility] Referral ID Status Reason Start Date Expiration Date V isits Requested Visits Authorized [id number] Authorized 02/10/2024 02/09/2025 1 1 Reason for Visit * Appointment Request (Routine) - Closed Specialty Diagnoses / Procedures Referred By Contac t Referred To Contact Spine Diagnoses Pain Back Lumbar Pain Leg Left Referral ID Status Reason Start Date Expiration Date Visits Re quested Visits Authorized [id number] Closed 11/29/2023 11/28/2024 2 2 Encounter Details Date Type Department Care Team (Latest Contact Info) Description 02/10/2024 11:00 AM CDT Comprehensive Visit Department of Orthopedic Surgery in [place], [place] [address] [place] [phone] Javon Kohler M.D. [address] [place] [phone] Radiculopathy Lumbar (Primary Dx); Stenosis Spinal; Stenosis [...] Javon Kohler M.D. CT CT Job ID: [id number]/[id number] documented in this encounter Plan of Treatment [...]
--- OUTSIDE RECORDS SUMMARY | 2024-03-17 09:38 | XMS_ITS | Encounter Summary ---
Author Organization [facility] Address [address] [place] [address] Care Team Providers Care Tag Marker Name Role Phone Unavailable Primary Care Provider Unavailabl e Reason for Referral * MRI/CAT/PET Scan (Routine) - Closed Specialty Diagnoses / Procedures Referred By Contac t Referred To Contact Radiology Diagnoses Pain Low Back Unspecified Procedures CT Lumbar Spine without IV Contrast Milady Jaffe APRN, C.N.P., D.N.P., M.S.N. Phone: tel: fax: [facility] Referral ID Status Reason Start Date Expiration Date Visits Re quested Visits Authorized [id number] Closed 2023 12/25/2024 1 1 Reason for Visit * MRI/CAT/PET Scan (Routine) - Closed Specialty Diagnoses / Procedures Referred By Contac t Referred To Contact Radiology Diagnoses Pain Low Back Unspecified Procedures CT Lumbar Spine without IV Contrast Milady Jaffe APRN, C.N.P., D.N.P., M.S.N. Phone: tel: fax: [facility] Referral ID Status Reason Start Date Expiration Date Visits Re quested Visits Authorized [id number] Closed 2023 12/25/2024 1 1 Encounter Details Date Type Department Care Team (Latest Contact Info) Description 01/24/2024 2:15 PM CDT - 01/24/2024 11:59 PM CDT Hospital Encounter Department of Radiology, [facility], in [place], [place] [address] [place] [address] Milady Jaffe APRN, C.N.P., D.N.P., M.S.N. [address] [place] [address] Pain Low Back Unspecified Discharge Disposition: Home [...] Region Laterality Modality Lumbar Spine, Neuroradiology [facility], Neuroradiology ARZ [facility], Neuroradiology FLA [facility] N/A Computed Tomography, Compute d Tomography Impressions [...] to the left L5 neural foramen and [id number] root in the presacral fat is indeterminant for a compressive lesionof the 5th nerve with reactive enlargement or an intrinsic mass of theleft 5th nerve. MRI lumbosacral plexus would be helpful in further characterization. us Milady Jaffe APRN, C.N.P., D.N.P., M.S.N. IMG CT PROCEDURES Final Result documented in this encounter Visit Diagnoses Diagnosis Pain Low Back Unspecified documented in this encounter
--- OUTSIDE RECORDS SUMMARY | 2024-03-17 09:39 | XMS_ITS | Clinical Summary ---
Author Organization [facility] Address [address] [facility] [place] [address] Care Team Providers Care Steel Melter Name Role Phone Kely, Bronson Delano Primary Care Provider + [phone] Allergies No known active allergies Medications Medication [...] on file Medical Devices Implanted Type Area Family Health Nurse Practitioner Device Identifier Shelf Expiration Date Model / Serial / Lot Graft Bone Putty Dbx 10ml [id number] Implanted:Qt y: 1 on 03/01/2020 by Barrie Maldonado MD at [facility] Bone/Tissue /Biologic N/A: Spine Lumbar MUSCULOSKELETAL MASON 05/24/2021 [id number] / [id number] / Imp Scr Syn Canc Cortic Lp 6x45mm W/T25 Stardrive .645 Implanted:Qt y: 5 on 03/01/2020 by Barrie Maldonado MD at [facility] Metallic Hardware/An chor N/A: Spine Lumbar SYNTHES-STRATEC .64 5 / / LOAD 42 05 28SEP 2019 Imp Cap Syn Spinal Fixed Locking 1-Step Matrix Ns .000 Implanted:Qt y: 5 on 03/01/2020 by Barrie Maldonado MD at [facility] Metallic Hardware/An chor N/A: Spine Lumbar SYNTHES-STRATEC 632.00 0 / / LOAD 42 05 SEP 2019 Adolfo Curved 5.5x60mm Implanted:Qt y: 2 on 03/01/2020 by Barrie Maldonado MD at [facility] Metallic Hardware/An chor N/A: Spine Lumbar SYNTHES-STRATEC 636.06 0 / 636.06 0 / 28SEP 2019 42 05 Advance Directives For more information, please contact: [phone] * Full Code (Latest Code Status on File) Date Activated Date Inactivated Comments 03/01/2020 2:28 PM 03/04/2020 3:26 PM All basic an d advanced life-sustaining interventions are performed as appropriate Question Answer Comments Code status determined by: Discussion with mayra lambert/ legal decision maker Care Teams Steel Melter Relationship Specialty Start Date End Date Bronson Edge [address] [address] PCP - General Family Practice 02/22/20
--- OUTSIDE RECORDS SUMMARY | 2024-03-17 09:39 | XMS_ITS | Referral Summary ---
Author Organization [facility] Address [address] [facility] [place] [address] Care Team Providers Care Specialty Sales Representative Name Role Phone Kely Bronson Wick Primary Care Provider + [phone] Allergies No known active allergies Medications Medication [...] on file Medical Devices Implanted Type Area Fire Patrol Device Identifier Shelf Expiration Date Model / Serial / Lot Graft Bone Putty Dbx 10ml [id number] Implanted:Qt y: 1 on 03/01/2020 by Barrie Maldonado MD at [facility] Bone/Tissue /Biologic N/A: Spine Lumbar MUSCULOSKELETAL MASON 05/24/2021 [id number] / [id number] / Imp Scr Syn Canc Cortic Lp [...] Advance Directives For more information, please contact: [phone] * Full Code (Latest Code Status on File) Date Activated Date Inactivated Comments 03/01/2020 2:28 PM 03/04/2020 3:26 PM All basic an d advanced life-sustaining interventions are performed as appropriate Question Answer Comments Code status determined by: Discussion with mayra lambert/ legal decision maker Care Teams Specialty Sales Representative Relationship Specialty Start Date End Date Bronson Edge [address] [address] PCP - General Family Practice 02/22/20
--- OUTSIDE RECORDS SUMMARY | 2024-03-17 09:39 | XMS_ITS | Continuity of Care Document ---
Author Organization [facility] Address [address] [place] [address] Phone Care Team Providers Care Deputy Brand Inspector Name Role Phone Nate ELIZABETH, PhD, Osvaldo Unavailable Unavai lable Allergies, Adverse Reactions, Alerts Substance Reaction Status Criticality No Known Allergies Active No Inform ation Medications Medication Instructions Dosage Effective Dates (start - stop) Status Comments GABAPENTIN (unknown strength) Not Available - Active SERTRALINE HCL (unknown strength) Not Available - Active Procedures Procedure Date Office/Outpatient Visit,[facility] 2023 Advance Directives Directive Yes / No Effective Date File Name No Information Encounters Encounter Description Practice Location Reason(s) For Visit Diagnoses Date Provider Providers Copied on Encounter [facility], [address], [place], [place], [id number], [place] tel:[phone] [facility] No Information Nate Riley. [facility], [address], [place], [address], [place]. tel:[phone] Office/Outpat ient Visit,[facility], [address], [place], [place], [id number], [place] tel:[phone] [facility] - [place] Spinal stenosis, lumbar region with neurogenic claudicationR adiculopathy, lumbar region Nate Riley. [facility], [address], [facility] [place], [address], [place]. tel:[phone] Referring Provider: Andrew Baron, [place] [address], [place], [address]. tel:[phone] Family History Family Member Type Diagnosis Age At Onset Mother Problem (finding) Cancer, unknown type Payers Payer name Insurance type Covered democrat ID Authoriza tion(s) Medicare [id number] [facility] Medicare Supplement BL [id number] Social History Type Description Quantity Date Captured [...]
--- OUTSIDE RECORDS SUMMARY | 2024-03-17 09:39 | XMS_ITS | Clinical Summary ---
Author Organization [facility] Address [place], [place] [address] Care Team Providers Care Extrusion Die Coordinator Name Role Phone Stevan Keith MD Primary Care Provider [phone] Allergies No known active allergies Medications Medication [...] packaging. 21 Tablet 4 Active HYDROcodone-acetam inophen ([place]) (5-325 mg/tablet)Indicati ons:Lumbar radiculopathy Take 1 Tablet [...] Type Department Care Team Description 02/27/2024 Refill [facility] [address] [place] [address] Andrew Wilson MD Refill Request (oxyCODONE (ROXICODONE) 5 mg immediate release tablet/) 02/13/2024 2:00 PM CDT - 02/13/2024 11:59 PM CDT Hospital Encounter [facility] [address] [place] [address] [address] [place] [address] Andrew Wilson MD Fuller, Brent J, PT 02/13/2024 Travel 02/12/2024 Telephone [facility] [address] [place] [address] Andrew Wilson MD Questions (MONTEZUMA UPDATE) 02/06/2024 10:43 AM CDT - 02/06/2024 11:59 PM CDT Hospital Encounter [facility] [address] [facility] [address] [place] [address] Andrew Wilson MD Fuller, Brent J, PT 02/06/2024 Travel 01/30/2024 3:54 PM CDT - 01/30/2024 11:59 PM CDT Hospital Encounter [facility] [address] [facility] [address] [place] [address] Andrew Wilson MD Fuller, Brent J, PT Lumbar foraminal stenosis; Lumbar radiculopathy; S/P lumbar fusion; Lumbar facet arthropathy 01/30/2024 Travel 01/29/2024 Telephone [facility] [address] [place] [address] Andrew Wilson MD Call back (Needing recemendations for physical therapists) 01/21/2024 Refill [facility] [address] [place] [address] Andrew Wilson MD Refill Request (oxyCODONE (ROXICODONE) 5 mg immediate release tablet) 01/09/2024 1:00 PM CDT Office Visit [facility] [address] [facility] [place] [address] Andrew Wilson MD Follow Up (Lumbar pain /Pain 12/10 ) 01/09/2024 Travel 12/30/2023 Telephone [facility] [address] [place] [place] [address] Andrew Wilson MD Form 12/20/2023 Telephone [facility] [address] [place] [address] Andrew Wilson MD Questions 12/16/2023 2:45 PM CDT Ancillary Procedure [facility] [address] [place] [address] 12/16/2023 Travel 12/16/2023 Orders Only [facility] [address] [place] [address] Osvaldo Sullivan MD <No scans attached> from Last 3 Months Family History Medical [...] CDT Respiratory Rate 18 05/15/2015 11:00 AM DIRECTOR OF MARKETING ANALYTICS Oxygen Saturation 95% 01/09/2024 12:59 PM CDT Inhaled Oxygen Concentration - - Weight 97.5 kg (215 lb) 01/09/2024 12:59 PM CDT Height 180.3 cm (5' 11) 05/15/2015 10:26 AM DIRECTOR OF MARKETING ANALYTICS Body Mass Index 29.99 05/15/2015 10:26 AM DIRECTOR OF MARKETING ANALYTICS Plan of Treatment Upcoming Encounters Date Type Department Care Team (Late st Contact Info) Description 03/17/2024 10:00 AM CDT Office Visit [facility] [address] [facility] [place] [address] Andrew Wilosn MD [address] [place] [address] Arrived Health Maintenance Due Date Last Done Comments [...] Diagnosis Comments AMB EPIDURAL STEROID INJECTION Routine 03/17/2024 7:59 AM CDT Lumbosacral radiculopathy at L5 S/P lumbar fusion Lumbar foraminal stenosis XR SPINE LUMBAR MINIMUM 4 VIEWS Routine 12/16/2023 3:03 PM CDT Lumbar pain ANTI HCV Today 01/06/2018 3:38 PM CDT [...] Signed) Osvaldo Sullivan MD GENERAL IMAGING * ANTI HCV (01/06/2018 3:38 PM CDT) HEPATITIS C ANTIBODY Non-React glo Non-React glo 01/06/2018 8:19 PM CDT [facility] Comment:Antibodies to HCV no t detected; does not exclude the possibility of exposure to HCV. Blood BLOOD SPECIMEN / Unknown Venipuncture / Unknown 01/06/2018 3:38 PM CDT 01/06/2018 3:39 PM CDT Margarette Marrero MD [facility] [facility] [address] [place] [address], from Last 3 Months or Most Recently Relevant to Health Maintenance Care Teams Extrusion Die Coordinator Relationship Specialty Start Date End Date Stevan Keith MD [address] [place] [address] PCP - General Family Practice 01/09/24
== END 2024-03-17 09:34 | disposition home or self-care (01) ==
LOC: INJ CL 09:36
PROVIDERS: PCP Family Medicine; Visit Provider Family Medicine
DX: M54.16 Radiculopathy, lumbar region (principal); M51.369 Other intervertebral disc degeneration, lumbar region without mention of lumbar back pain or lower extremity pain
CPT/HCPCS: 64483; J1100; Q9966

== ENCOUNTER 2024-06-11 14:30 | Outpatient (CLI) | payer MEDICARE, BC, SELFPAY | END 2024-06-11 14:31 | disposition home or self-care (01) | PROVIDERS: PCP Family Medicine; Visit Provider Family Medicine | DX: R53.83 Other fatigue (principal); I10 Essential (primary) hypertension; E78.5 Hyperlipidemia, unspecified; E11.9 Type 2 diabetes mellitus without complications; E66.9 Obesity, unspecified; Z12.5 Encounter for screening for malignant neoplasm of prostate | CPT/HCPCS: 80053; 80061; 82043; 82570; G0103 ==

== ENCOUNTER 2024-08-25 10:43 | Outpatient (CLI) | payer MEDICARE, BC, SELFPAY | END 2024-08-25 10:44 | disposition home or self-care (01) | LOC: INJ CL 10:43 | PROVIDERS: PCP Family Medicine; Visit Provider Family Medicine | DX: M54.16 Radiculopathy, lumbar region (principal); M51.369 Other intervertebral disc degeneration, lumbar region without mention of lumbar back pain or lower extremity pain | CPT/HCPCS: 64483; J1100; Q9966 ==

== ENCOUNTER 2024-10-15 13:57 | Outpatient (CLI) | payer MEDICARE, BC, SELFPAY | END 2024-10-15 13:58 | disposition home or self-care (01) | LOC: LKVREF 13:58 | PROVIDERS: PCP Family Medicine; Visit Provider Family Medicine | DX: E11.65 Type 2 diabetes mellitus with hyperglycemia (principal); I10 Essential (primary) hypertension; Z79.84 Long term (current) use of oral hypoglycemic drugs | CPT/HCPCS: 80048 ==

== ENCOUNTER 2024-12-14 13:48 | Outpatient (CLI) | payer MEDICARE, BC, SELFPAY | END 2024-12-14 13:49 | disposition home or self-care (01) | PROVIDERS: PCP Family Medicine; Visit Provider Family Medicine | DX: I10 Essential (primary) hypertension (principal); Z01.818 Encounter for other preprocedural examination | CPT/HCPCS: 80053 ==

== ENCOUNTER 2024-12-16 14:50 | Outpatient (CLI) | payer MEDICARE, BC, SELFPAY | END 2024-12-16 14:51 | disposition home or self-care (01) | LOC: RAD 14:51 | PROVIDERS: PCP Family Medicine; Visit Provider Family Medicine | DX: R01.1 Cardiac murmur, unspecified (principal); I35.0 Nonrheumatic aortic (valve) stenosis | CPT/HCPCS: 93306 ==

== ENCOUNTER 2025-04-13 11:27 | Emergency (ER) | payer MEDICARE, BC, SELFPAY ==
[2025-04-13] VITALS (14 sets, daily range): BP systolic 125–164; BP diastolic 91–93; PULSE 82–96; RESP 20; TEMP 36.1; O2SAT 92–94; BMI 33.1
--- OUTSIDE RECORDS SUMMARY | 2025-04-13 11:30 | XMS_ITS | Encounter Summary ---
Author Organization [place] Address [address] [facility] [place] [address] Care Team Providers Care Motorcycle Riding Instructor Name Role Phone Stevan Keith MD Primary Care Provider [phone] [facility] Unavailable Vanita Cullen APRN SWITCHBOARD WIRER Unavailable Encounter Details Date Type Department Care Team (Late st Contact Info) Description 12/30/2024 Results Follow-Up [facility] [address] [place] [phone] Vanita Cullen APRN SWITCHBOARD WIRER [address] [place] [id number] Social History Tobacco Use Types Packs/Day Years Used Date Smoking Tobacco: Former Cigarettes Q uit: 1975 Smokeless Tobacco: Never Alcohol Use Standard Drinks/Week Comments Not Currently 0 (1 standard drink = 0.6 oz pur e alcohol) Adolescent Education Answer Date Record ed Getting School Help Needed Not on file 02/23 Interpersonal Safety Answer Date Record ed Do you feel physically and e motionally safe where you currently live? Yes 12/21/2024 Within the past 12 months, h ave you been hit, slapped, kicked or otherwise physically hurt by someone? No 12/21/2024 Within the past 12 months, h ave you been humiliated or emotionally abused in other ways by your partner or ex-partner? No 12/21/2024 Sex and Gender Information Value Date Recorded Sex Assigned at Not on file Legal Sex Male 1:02 PM CDT Gender Identity Not on file Sexual Orientation Not on file documented as of this encounter Plan of Treatment Not on file documented as of this encounter Goals Goal Patient Goal Type Associated Problems Recent Progress Patient-Stated? Author MYC ECC SURG [facility]NROLL Care Plan [facility] ECC SURG [facility]OLL No Caterina Bhatia documented as of this encounter Visit Diagnoses Not on filedocumented in this encounter Additional Health Concerns Active Problems Noted Date Diagnosed Date MyC ECC SURG ENROLL 09/24/2024 documented as of this encounter Care Teams Motorcycle Riding Instructor Relationship Specialty Start Date End Date Stevan Keith MD PCP - General Family Medicine 10/08/[address] [phone] 12/28/24 01/02/25 Vanita Cullen APRN SWITCHBOARD WIRER [address] [place] [address] Nurse Practitioner Geriatric Medicine 12/28/24 01/02/25 documented as of this encounter
--- OUTSIDE RECORDS SUMMARY | 2025-04-13 11:30 | XMS_ITS | Clinical Summary ---
Author Organization [place] Address [address] [facility] [place] [address] Care Team Providers Care Civil Process Server Name Role Phone Stevan Keith MD Primary Care Provider [phone] Allergies No known active allergies Medications gabapentin (NEURONTIN) 300 MG capsule Take 300 mg by mouth 3 times daily. Active buPROPion (WELLBUTRIN SR) 150 MG 12 hr tablet Take 150 mg by mouth every morning Active atorvastatin (LIPITOR) 40 MG tablet Take 40 mg by mouth daily. Active sertraline (ZOLOFT) 100 MG tablet Take 200 mg by mouth daily. ([id number] g) Active multivitamin w/minerals (MULTI-VITAMIN) tablet Take 1 tablet by mouth daily (with lunch) Active dutasteride (AVODART) 0.5 MG capsule Take 0.5 mg by mouth daily. Active ondansetron (ZOFRAN) 4 MG tablet Take 4 mg by mouth 2 times daily. Active pantoprazole (PROTONIX) 20 MG EC tablet Take 20 mg by mouth daily. Active acetaminophen (TYLENOL) 650 MG CR tablet Take 1,300 mg by mouth every 8 hours as needed for mild pain or fever ([id number] mg). Active lisinopril-hydroch lorothiazide (ZESTORETIC) 20-12.5 MG tablet Take 2 tablets by mouth daily. Active rivaroxaban ANTICOAGULANT (XARELTO) 10 MG TABS tabletIndications: Ortho post-op DVT Prophylaxis Take 1 tablet (10 mg) by mouth daily for 11 days. 5 Active ALPRAZolam (XANAX) 1 MG tabletIndications: S/P lumbar spinal fusion Take 1 tablet (1 mg) by mouth every 6 hours as needed for anxiety. 15 tablet 5 Active oxyCODONE (ROXICODONE) 5 MG tabletIndications: S/P lumbar spinal fusion Take 1 tablet (5 mg) by mouth 2 times daily as needed for severe pain or moderate to severe pain. 10 tablet 5 Active Active Problems Problem Noted Date Diagnosed Date S/P lumbar spinal fusion 12/21/2024 Spinal stenosis, 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, with neurogenic claudication 03/01/2020 Social History Tobacco Use Types Packs/Day Years Used Date Smoking Tobacco: Former Cigarettes Q uit: 1975 Smokeless Tobacco: Never Tobacco Cessation:Counseling Given: Not Answered Alcohol Use Standard Drinks/Week Comments Not Currently [...] Sign Reading Time Taken Comments Blood Pressure 122/67 01/01/2025 8:05 AM CDT Pulse 74 01/01/2025 8:05 AM CDT Temperature 36.4 C (97.6 F) 01/01/2025 8:05 AM CDT Respiratory Rate 17 01/01/2025 8:05 AM CDT Oxygen Saturation 95% 01/01/2025 8:05 AM CDT Inhaled Oxygen Concentration - - Weight 97.5 kg (215 lb) 01/01/2025 8:05 AM CDT Height 172.7 cm (5' 8) 01/01/2025 8:05 AM CDT Body Mass Index 32.69 01/01/2025 8:05 AM CDT Plan of Treatment Health Maintenance Due Date Last Done Comments ANNUAL REVIEW OF HM ORDERS 1945 FALL RISK ASSESSMENT 2009 MEDICARE ANNUAL WELLNESS VISIT 2009 LIPID 08/15/2019 08/14/2018, 08/02, 10/10/2016, Additional history exists RSV VACCINE (1 - 1-dose 75+ series) 12/27/2019 ZOSTER VACCINE (3 of 3) 11/11/2020 09/16/2020, 06/01 PHQ-2 (once per calendar year) 2024 COVID-19 VACCINE ( season) 2025 03/25/2023, 03/14/2022, 10/11/2021, Additional history exists INFLUENZA VACCINE (#1) 2025 , 03/21/2023, 03/29/2022, Additional history exists BMP 12/30/2025 12/30/2024, 12/02, 12/22/2024, Additional history exists DTAP/TDAP/TD VACCINE (2 - Td or Tdap) 12/29/2027 12/28/2017, 12/30/2009, 01/26/2000 DIABETES SCREENING 12/31/2027 12/30/2024, 0 12/24/2024, 12/23/2024, Additional history exists ADVANCE CARE PLANNING 12/31/2029 12/31/2024 PNEUMOCOCCAL VACCINE 50+ YEARS Completed 09/16/2020, 10/18/2014, 08/26/2014, Additional history exists HPV VACCINE (No Doses Required) Completed MENINGITIS VACCINE Aged Out No longer eligible based on patient's age to complete this topic Goals Goal Patient Goal Type Associated Problems Recent Progress Patient-Stated? Author MYC ECC SURG ENROLL Care Plan MyC ECC SURG ENROLL No [employer] Implanted Type Area Hammer Heater Device Identifier Shelf Expiration Date Model / Serial / Lot Graft Bone Infuse Bmp Xsm [id number] - [id number] Implanted:Qt y: 1 on 12/21/2024 by Zane Walton MD at [facility] Bone/Tissue Synthetic N/A: Spine Lumbar [employer]-DANEK [id number] 12/01/2025 [id number] / / [id number] Graft Bone Putty Dbx 10ml [id number] Implanted:Qt y: 1 on 03/01/2020 by Barrie Maldonado MD at [facility] Bone/Tissue /Biologic N/A: Spine Lumbar MUSC[employer]OSKELET[employer] MASON 05/24/2021 [id number] / [id number] / Kit Bngf 6cc Dmnr Julio C Fbr Accelerate Grftn Cnn [id number] - [id number] Implanted:Qt y: 1 on 12/21/2024 by Zane Walton MD at [facility] Bone/Tissue /Biologic N/A: Spine Lumbar [employer] 01/20/2026 [id number] / [id number] / Imp Scr Syn Canc Cortic Lp 6x45mm W/T25 Stardrive [id number] Implanted:Qt y: 5 on 03/01/2020 by Barrie Maldonado MD at [facility] Metallic Hardware/An chor N/A: Spine Lumbar SYNTHES-STRATEC [id number] 5 / / LOAD 42 05 28SEP 2019 Imp Cap Syn Spinal Fixed Locking 1-Step Matrix Ns [id number] Implanted:Qt y: 5 on 03/01/2020 by Barrie Maldonado MD at [facility] Metallic Hardware/An chor N/A: Spine Lumbar SYNTHES-STRATEC 04.632.00 0 / / LOAD 42 05 28SEP 2019 Reline Mas Ti Adolfo [id number] Straight Implanted:Qt y: 2 on 12/21/2024 by Zane Walton MD at [facility] Metallic Hardware/An chor N/A: Spine Lumbar NUVASIVE [id number] / / 41 03 LOAD 18 DEC 2024 Reline Mas Screw 8.5x50mm 2c Polyaxial Implanted:Qt y: 1 on 12/21/2024 by Zane Walton MD at [facility] Metallic Hardware/An chor N/A: Spine Lumbar NUVASIVE [id number] / / 41 03 LOAD 18 DEC 2024 Modulus Alif [id number] 20 Degrees Implanted:Qt y: 1 on 12/21/2024 by Zane Walton MD at [facility] Metallic Hardware/An chor N/A: Spine Lumbar NUVASIVE [id number] 08/23/2029 [id number] / / [id number] [place] Spnl 25mm 5mm Modl Fx Alif Ns Lf - [id number] Implanted:Qt y: 2 on 12/21/2024 by Zane Walton MD at [facility] Metallic Hardware/An chor N/A: Spine Lumbar NUVASIVE [id number] 03 LOAD 18 DEC 2024 [place] Spinal Modulus Od5 Mml17.5 Mm [id number] - [id number] Implanted:Qt y: 1 on 12/21/2024 by Zane Walton MD at [facility] Metallic Hardware/An chor N/A: Spine Lumbar NUVASIVE [id number] LOAD 18 DEC 2024 Screw Bone Reline Od8.5 Mml55 Mm [id number] - [id number] Implanted:Qt y: 1 on 12/21/2024 by Zane Walton MD at [facility] Metallic Hardware/An chor N/A: Spine Lumbar NUVASIVE [id number] / 03 LOAD 18 DEC 2024 Screw Bn 5.5mm Lck Opn Tulip Ns Reline Spne - [id number] Implanted:Qt y: 4 on 12/21/2024 by Zane Walton MD at [facility] Metallic Hardware/An chor N/A: Spine Lumbar NUVASIVE [id number] / 03 LOAD 18 DEC 2024 Reline-O Screw, 9.2h340st 2s Iliac Clsd Implanted:Qt y: 2 on 12/21/2024 by Zane Walton MD at [facility] Metallic Hardware/An chor N/A: Spine Lumbar NUVASIVE [id number] / 03 LOAD 18 DEC 2024 Explanted Type Area Hammer Heater Device Identifier Shelf Expiration Date Model / Serial / Lot Adolfo Curved 5.5x60mm Implanted:Qty : 2 on 03/01/2020 by Barrie Maldonado MD at [facility] Explanted:Qty : 2 on 12/21/2024 by Zane Walton MD at [facility] Metallic Hardware/Anc hor N/A: Spine Lumbar SYNTHES-STRATEC 636 0 / [id number] 28SEP 2019 42 05 Procedures Procedure Name Priority Date/Time Associated Diagnosis Comments GLUCOSE (OUTREACH) Routine 12/30/2024 5: 11 AM CDT Hypo-osmolality and hyponatremia BASIC METABOLIC PANEL NO GLUCOSE (OUTREACH) Routine 12/30/2024 5:11 AM CDT Hypo-osmolality and hyponatremia LIPID PROFILE Routine 08/14/2018 12:49 PM CDT from Last 3 Months or Most Recently Relevant to Health Maintenance Results * (ABNORMAL) Basic Metabolic Panel No Glucose (OUTREACH) (12/30/2024 5:11 AM CDT) Sodium 135 135 - 145 mmol/L 12/30/2024 7:44 AM CDT [facility] Potassium 4.1 3.4 - 5.3 mmol/L 12/30/2024 7:44 AM CDT [facility] Chloride 97(L) 98 - 107 mmol/L 12/30/2024 7:44 AM CDT [facility] Carbon Dioxide (CO2) 25 22 - 29 mmol/L 12/30/2024 7:44 AM CDT [facility] Anion Gap 13 7 - 15 mmol/L 12/30/2024 7:44 AM CDT [facility] Urea Nitrogen 20.7 8.0 - 23.0 mg/dL 12/30/2024 7:44 AM CDT [facility] Creatinine 1.09 0.67 - 1.17 mg/dL 12/30/2024 7:44 AM CDT [facility] GFR Estimate 69 >60 mL/min/1.7 3m2 12/30/2024 7:44 AM CDT [facility] Calcium 8.7(L) 8.8 - 10.4 mg/dL 12/30/2024 7:44 AM CDT [facility] Blood STRUCTURE OF RIGHT UPPER LIMB / Unknown Venipuncture / Unknown 12/30/2024 5:11 AM CDT 12/30/2024 7:06 AM CDT Yadira Vaughn APRN [facility] - BLOOD ORDERABLE S Final Result LABORATORY [facility] [address] Lab (1st floor, no room number) [place] [address] * (ABNORMAL) Glucose (OUTREACH) (12/30/2024 5:11 AM CDT) Glucose 194(H) 70 - 99 mg/dL 12/30/2024 7:47 AM CDT LABORATORY Blood STRUCTURE OF RIGHT UPPER LIMB / Unknown Venipuncture / Unknown 12/30/2024 5:11 AM CDT 12/30/2024 7:06 AM CDT Yadira Vaughn APRN [facility] - BLOOD ORDERABLE S Final Result Performing Organization Address City/[facility] [address]/ZIP Co de Phone Number [facility] [address] Lab (1st floor, no room number) [place] [phone] [place] [address] * Lipid Profile (08/14/2018 12:49 PM CDT) Cholesterol 166 <=199 mg/dL 08/14/2018 6:32 PM CDT [facility] Triglycerides 105 <=149 mg/dL 08/14/2018 6:32 PM CDT [facility] Direct Measure HDL 52 >=40 mg/dL 08/14/2018 6:32 PM CDT [facility] LDL Cholesterol Calculated 93 <=129 mg/dL 08/14/2018 6:32 PM CDT [facility] Patient Fasting > 8hrs? Unknown 08/14/2018 6:32 PM CDT [facility] Blood specimen (specimen) 08/14/2018 12:49 PM CDT 08/14/2018 5:41 PM CDT us Salvador Jackson MD LAB - BLOOD ORDERABLE S Final Result [facility] [address] [place] [address], [facility] [address] [place] [address] from Last 3 Months or Most Recently Relevant to Health Maintenance Additional Health Concerns Active Problems Noted Date Diagnosed Date MyC ECC SURG ENROLL 09/24/[address] [place] [place] [id number] [facility] MEDICARE SUPPLEMENT MEDICARE [place] MEDICARE SUPPLEMENT Advance Directives For more information, please contact: [phone] * Full Code (Latest Code Status on File) Date Activated Date Inactivated Comments 12/28/2024 2:13 PM Question Answer Comments Code status determined by: AD/POLST (patient dec ision maker unavailable) * Full Code Date Activated Date Inactivated Comments 12/24/2024 10:51 AM 12/28/2024 2:13 PM Question Answer Comments Code status determined by: Discussion with patie nt/ legal decision maker * Full Code Date Activated Date Inactivated Comments 12/21/2024 3:00 PM 12/24/2024 10:51 AM All basic a nd advanced life-sustaining interventions are performed as appropriate Question Answer Comments Code status determined by: Discussion with patie nt/ legal decision maker * Full Code Date Activated Date Inactivated Comments 03/01/2020 2:28 PM 03/04/2020 3:26 PM All basic an d advanced life-sustaining interventions are performed as appropriate Question Answer Comments Code status determined by: Discussion with patie nt/ legal decision maker Care Teams Civil Process Server Relationship Specialty Start Date End Date Stevan Keith MD PCP - General Family Medicine 10/08/24
--- OUTSIDE RECORDS SUMMARY | 2025-04-13 11:30 | XMS_ITS | Clinical Summary ---
Author Organization [facility] Address [address] [place] [address] Care Team Providers Care Production Team Manager Name Role Phone Elsewhere, Pcp Primary Care Provider Unavailabl e Source Comments Patient records contain information from all sites at [facility]. For routine questions regarding patient records, call [phone] during business hours, M-F 8:00 AM - 5:00 PM Central Time. Record requests for emergency care only can be directed to [phone] at any time.[facility] Allergies No known active allergies Medications ALPRAZolam [...] (three) times a day. 270 capsule 4 Active Active Problems Problem Noted Date Diagnosed Date Stenosis Spinal Lumbar With Neurogenic Claudicat ion 03/01/2020 Fracture Acetabulum Closed Initial Right 018 Hypertension Essential Primary 12/29/2017 Apnea Sleep Obstructive 12/29/2017 Benign Prostatic Hyperplasia Hypertrophy With Ob struction 12/29/2017 Hyperlipidemia 12/29/2017 Anxiety 12/29/2017 Panic Disorder Episodic Paroxysmal Anxiety 12/29 Resolved Problems Problem Noted Date Diagnosed Date Resolved Date Fracture Acetabulum Closed Initial Left 12/29/2017 01/08/2018 Family History Medical History Relation Name Comments Arthritis Father Salvador Hunt Anxiety disorder Mother Jenn Hunt Cancer Mother Jenn Hunt Relation Name Status Comments Father Salvador Hunt Alive Mother Jenn Hunt Alive Social History Tobacco Use Types Packs/Day Years Used Date Smoking Tobacco: Never Smokeless Tobacco: Never Tobacco Cessation:Counseling Given: Not Answered Alcohol Use Standard Drinks/Week Comments No 0 (1 standard drink = 0.6 oz pur e alcohol) Sex and Gender Information Value Date Recorded Sex Assigned at Male 02/12/2018 8:22 AM CDT Legal Sex Male 9:20 PM CDT Gender Identity Male 02/12/2018 8:22 AM CDT Sexual Orientation Straight 02/12/2018 8: 22 AM CDT Last Filed Vital Signs Vital Sign Reading Time Taken Comments Blood Pressure 160/94 09/22/2024 6:00 AM CDT Pulse 62 09/22/2024 6:00 AM CDT Temperature 36.7 C (98.1 F) 09/21/2024 10:31 PM CDT Respiratory Rate 16 09/21/2024 10:45 PM CDT Oxygen Saturation 96% 09/22/2024 6:00 AM CDT Inhaled Oxygen Concentration - - Weight 101 kg (222 lb 14.2 oz) 09/21/2024 3:39 P M CDT Height 172.7 cm (5' 7.99) 01/24/2024 12:49 PM C DT Body Mass Index 33.9 01/24/2024 12:49 PM CDT Plan of Treatment Health Maintenance Due Date Last Done Comments Office Visit for Blood Pressure Check / Re-check 1945 RSV vaccine - (32-36 weeks) or 50+ years (1 - 1-dose 75+ series) 12/27/2019 Zoster Vaccines (3 of 3) 11/11/2020 09/16/2020, 05/05 Depression Screening (Annual PHQ-2) 06/03/2024 Fall Risk Screen (Annual) 06/03/2024 COVID-19 Vaccine ( season) 2025 03/25/2023, 03/14/2022, 10/11/2021, Additional history exists Influenza Vaccine (#1) 2025 , 03/29/2022, 03/21/2020, Additional history exists Creatinine Level (Kidney Function Test) 12/22/2025 12/22/2024, 12/21/2024, 12/14/2024, Additional history exists Potassium Level 12/22/2025 12/22/2024, 12/02, 12/14/2024, Additional history exists Sodium Level 12/22/2025 12/22/2024, 09/02, 12/09/2023, Additional history exists DTaP,Tdap,and Td Vaccines (2 - Td or Tdap) 12/29/2027 12/28/2017, 12/30/2009, 01/26/2000 Abdominal Aortic Aneurysm (AAA) Screen Discontinued 12/29/2017 Pneumococcal vaccine (50+ years) Completed 09/16/2020, 10/18/2014, 08/26/2014, Additional history exists IPV Vaccines Aged Out No longer eligi ble based on patient's age to complete this topic Procedures Procedure Name Priority Date/Time Associated Diagnosis Comments BASIC METABOLIC PANEL, S/P STAT 09/21/2024 5:[address] ABDOMEN PELVIS WITH IV CONTRAST RAD - Emergent (Fastest; for the most critically ill patients) 12/29/2017 1:02 AM CDT from Last 3 Months or Most Recently Relevant to Health Maintenance Results * (ABNORMAL) Basic Metabolic Panel (09/21/2024 5:08 PM CDT) Pathologist [facility] Potassium, P 4.5 3.6 - 5.2 mmol/L 09/21/2024 6:16 PM CDT [facility] Sodium, P 136 135 - 145 mmol/L 09/21/2024 6:16 PM CDT [facility] Chloride, P 100 98 - 107 mmol/L 09/21/2024 6:16 PM CDT [facility] Bicarbonate, P 25 22 - 29 mmol/L 09/21/2024 6:16 PM CDT [facility] Anion Gap, P 11 7 - 15 09/21/2024 6:16 PM CDT [facility] BUN (Blood Urea Nitrogen), P 28(H) 8 - 24 mg/dL 09/21/2024 6:16 PM CDT [facility] Creatinine 1.02 0.74 - 1.35 mg/dL 09/21/2024 6:16 PM CDT [facility] Estimated GFR (eGFR) 75 >=60 mL/min/BSA 09/21/2024 6:16 PM CDT [facility] Comment: Estimated GFR calculated using the 2020 CKD_EPI creatinine equation. Calcium, Total, P 9.5 8.8 - 10.2 mg/dL 09/21/2024 6:16 PM CDT [facility] Glucose, P 172(H) 70 - 140 mg/dL 09/21/2024 6:16 PM CDT [facility] Blood (Blood, Venous) 09/21/2024 5:08 PM CDT 09/21/2024 5:45 PM CDT Jesús Ramos P.A.-C. LAB BLOOD ADD-ON Final Result [facility] [address] [place] [address], [facility] [address] [place] [address] * CT Abdomen Pelvis with IV Contrast (12/29/2017 1:02 AM CDT) Anatomical Region Laterality Modality Abdomen, Pelvis, Abdominal RST LOS N/A Computed Tomography 12/29/2017 1:03 AM CDT Impressions 12/29/2017 9:22 AM CDT IMPRESSION: Acute complex right-sided pelvic fracture with fluid and inflammatory change in the right lower peritoneum and in the space of Retzius. This could represent hemorrhage versus bladder rupture, and a CT cystogram could be performed if there is clinical concern for the latter. Findings discussed with Juancarlos Samano MD ([id number]) at 1:20 am on 12/29/2017. I have personally reviewed the images and agree with this interpretation. Narrative 12/29/2017 9:22 AM CDT EXAM: CT ABDOMEN PELVIS WITH IV CONTRAST [...] latter. Findings discussed with Juancarlos Samano MD ([id number]) at 1:20 am on12/29/2017. I have personally reviewed the images and agree with thisinterpretation. us Juancarlos Samano M.D. IMG CT PROCEDURES Final Res ult from Last 3 Months or Most Recently Relevant to Health Maintenance Insurance MEDICARE [facility] Care Teams Production Team Manager Relationship Specialty Start Date End Date Elsewhere, Pcp PCP - General Internal Medicine 09/21/24
--- OUTSIDE RECORDS SUMMARY | 2025-04-13 11:30 | XMS_ITS | Clinical Summary ---
Author Organization [facility] Address [address] [place] [address] Care Team Providers Care Industrial Paramedic Name Role Phone Stevan Keith MD Primary Care Provider [phone] Allergies No known active allergies Medications sertraline (ZOLOFT) 100 mg tablet Take 1 1/2 tabs orally once a day 0 10/02/19 13 Active atorvastatin (LIPITOR) 10 mg tablet Take 1 tablet by mouth once daily. 0 10/02/19 13 Active tamsulosin (FLOMAX) 0.4 mg capsule Take 1 capsule by mouth once daily after a meal. 0 10/02/19 13 Active buPROPion (WELLBUTRIN SR) 100 mg Sustained-Releas e tablet Take one tablet by mouth every day 0 10/02/19 13 Active lisinopril (PRINIVIL; ZESTRIL) 20 mg tablet Take 1 tablet by mouth once daily. 0 10/02/19 13 Active rizatriptan (MAXALT) 10 mg tablet Take 1 tablet by mouth every 2 hours if needed for Migraine. Max dose: 30mg per 24 hrs. 0 10/02/19 13 Active omeprazole (PRILOSEC) 20 mg Delayed-Release capsule Take 1 capsule by mouth once daily. 0 01/03/20 18 Active finasteride (PROSCAR) 5 mg tablet Take 5 mg by mouth every morning. Active sennosides-docus ate, 8.6-50 mg, (SENNA LAXATIVE-STOOL SOFTENER) 8.6-50 mg tablet Take 1 tablet by mouth 2 times daily. Active WalkerIndication s:Open displaced fracture of right acetabulum with routine healing, unspecified portion of acetabulum, subsequent encounter Rolling Walker for home use. Discharge Date: 01/06/2018 Length of Need: 99 Weeks 1 Device 01/04/20 18 Active Additional Information Patient not taking.Reported on 02/12/2025 ALPRAZolam (XANAX) 0.5 mg tabletIndication s:Anxiety Take 1 tablet by mouth 2 times daily. 30 tablet 01/06/20 18 Active aspirin-acetamin ophen-caffeine, 250-250-65 mg, (EXCEDRIN) 250-250-65 mg tablet Max acetaminophen dose: 4000mg in 24 hrs. 0 01/07/20 18 Active wheelchairIndica tions:Closed nondisplaced fracture of right acetabulum with routine healing, unspecified portion of acetabulum, subsequent encounter,Gait instability Wheelchair: Standard with leg rests: (Swing away) and seat cushion. Length of need: 99 months 1 Device 01/07/20 18 Active oxyCODONE (ROXICODONE) 5 mg immediate release tabletIndication s:Lumbar radiculopathy,Regina mbar facet arthropathy,S/P lumbar fusion,Lumbar foraminal stenosis Take 1 Tablet (5 mg) by mouth every 4 hours if needed for Pain. 36 Tablet 03/09/20 25 Active Active Problems Problem Noted Date Diagnosed Date S/P lumbar L3-S1 spinal fusion 02/12/2025 Chronic right-sided low back pain without sciati [...] Encounters Date Type Department Care Team Description 03/09/2025 Refill [facility] [address] [place] [address] Andrew Wilson MD Refill Request (OXYCODONE ) 02/12/2025 11:00 AM CDT Office Visit [facility] [address] [place] [address] Andrew Wilson MD Musculoskeletal Problem (Follow up, back pain) 02/12/2025 Travel 01/27/2025 Refill [facility] [address] [place] [address] Andrew Wilson MD Refill Request (OXYCODONE ) from Last 3 Months Family History Medical [...] at Not on file Legal Sex Male 6:45 AM DIRECTOR INSTRUMENTATION Gender Identity Not on file Sexual Orientation Not on file Obstetrics History Last Filed Vital Signs Vital Sign Reading Time Taken Comments Blood Pressure 111/74 02/12/2025 11:22 AM CDT Pulse 81 02/12/2025 11:22 AM CDT Temperature 36.7 C (98 F) 02/12/2025 11:22 AM CDT Respiratory Rate 18 05/15/2015 11:00 AM DIRECTOR INSTRUMENTATION Oxygen Saturation 94% 02/12/2025 11:22 AM CDT Inhaled Oxygen Concentration - - Weight 100.2 kg (221 lb) 02/12/2025 11:22 AM CDT Height 180.3 cm (5' 11) 02/12/2025 11:22 AM CDT Body Mass Index 30.82 02/12/2025 11:22 AM CDT Plan of Treatment Health Maintenance Due Date Last Done Comments Tetanus booster [birth year]/27/1956 Depression screening for age 12+ 1956 Pneumococcal series for age 50+ (1 of 1 - PCV) 1994 Zoster (shingles) series for age 50+ (1 of 2) 1994 Medicare Wellness for age 65+ 2009 RSV vaccine for adults or (1 - 1-dose 75+ series) 12/27/2019 Influenza Vaccine (#1) 2025 BMI (ht and wt on same day) for age 18+ 02/12/2026 02/12/2025 Hepatitis B series for 19+ Aged Out N o longer eligible based on patient's age to complete this topic Insurance MEDICARE PART B HB ONLY MEDICARE PB ONLY [facility] MEDICARE PART A HB ONLY MEDICARE PART B HB ONLY [facility] ONLY Care Teams Industrial Paramedic Relationship Specialty Start Date End Date Stevan Keith MD [address] [place] [address] PCP - General Family Practice 01/09/24
--- NOTE | 2025-04-13 11:45 | ED.GENADULT ---
HPI - General Adult General Chief complaint: Abdominal Pain Stated complaint: diverticulitis flare Time Seen by Provider: 04/13/25 11:31 History of Present Illness HPI narrative: Pt has hx of diverticulitis. Feel as if he is having another flare. Has been having cramping pain and feeling constipated for several days despite attempts to use laxatives and fleets enemas. 79-year-old man presenting to the emergency department with concern of possible diverticulitis. Has had flares of it before. Last was treated medically through the clinic. He does not recall exactly when that was. Did even have a script to fill on hand as needed at 1 point. Did have a spinal fusion earlier this year and since that time at bowels have not returned to normal. He has not had a bowel movement for couple of days. Did try a couple of doses of milk magnesium and also a couple fleets enemas. He has had some liquid or just water results. Prior to 2 days ago insert last bowel movement being half for that. He has been having some cramping abdominal pain. Not exactly clear where that is occurring but is also gestures to his left abdomen is if he is having pain here. With this from time to time in presumed intestinal colic. Has not had a fever. No hematochezia. He does note in the past he is had fever associated with diverticulitis. Related Data Home Medications ?Medication ?Instructions ?Recorded ?Confirmed rizatriptan 10 mg tablet 10 mg PO .Once as needed PRN 02/12/22 03/26/25 [id number] 250 2 tab PO Q6H PRN 03/21/23 03/26/25 mg-250 mg-65 mg tablet (Excedrin Migraine) cephalexin 500 mg capsule 500 mg PO 3XD 01/08/25 03/26/25 methocarbamol 500 mg tablet 500 mg PO TID 01/08/25 03/26/25 Previous Rx's ?Medication ?Instructions ?Recorded famotidine 20 mg tablet (Acid 20 mg PO QHS #90 tabs 08/23/22 Strapper And Buffer (famotidine)) metformin 500 mg tablet,extended 500 mg PO BID #180 tabs 01/09/24 release 24 hr atorvastatin 40 mg tablet 40 mg PO QHS #90 tabs 05/07/24 dutasteride 0.5 mg capsule 0.5 mg PO QDAY #90 caps 05/07/24 sertraline 100 mg tablet 200 mg (2 x 100 mg) PO DAILY #180 05/07/24 tabs oxycodone 5 mg tablet 5 mg PO BID PRN pain #30 tabs 10/15/24 pantoprazole 20 mg tablet,delayed 20 mg PO QDAY #90 tabs 12/08/24 release lisinopril 20 1 tab PO QDAY #180 tabs 01/08/25 mg-hydrochlorothiazide 12.5 mg tablet bupropion HCl 150 mg tablet,12 hr 150 mg PO DAILY #90 tabs 02/16/25 sustained-release ondansetron HCl 4 mg tablet 4 mg PO BID PRN nausea and 03/01/25 vomiting #90 tabs alprazolam 0.5 mg tablet (Xanax) 0.5 mg PO BID PRN anxiety #135 tabs 04/08/25 gabapentin 300 mg capsule 300 mg PO 3XD #90 caps 04/12/25 Allergies Allergy/AdvReac Type Severity Reaction Status Date / Time No Known Drug Allergies Allergy Verified 03/26/25 12:44 Review of Systems Status of ROS: Reports: 6 or more systems reviewed and unremarkable except as noted in History and below [facility] Medical History Foraminal stenosis of lumbar region ?M48.061 - Spinal stenosis, lumbar region without neurogenic claudication (ICD-10) Elevated PSA measurement ?R97.20 - Elevated prostate specific antigen [PSA] (ICD-10) Back pain with radiculopathy ?M54.10 - Radiculopathy, site unspecified (ICD-10) 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 [Sweet] (ICD-10) Back pain ?M54.9 - Dorsalgia, unspecified (ICD-10) History of diverticulitis ?Z87.19 - Personal history of other diseases of the digestive system (ICD-10) Surgical History History of tonsillectomy ?Z90.89 - Acquired absence of other organs (ICD-10) History of lumbar fusion ?Z98.1 - Arthrodesis status (ICD-10) History of excision of lamina of lumbar vertebra for decompression of spinal cord ?Z98.890 - Other specified postprocedural states (ICD-10) History of colonoscopy ?Z98.890 - Other specified postprocedural states (ICD-10) History of cholecystectomy ?Z90.49 - Acquired absence of other specified parts of digestive tract (ICD-10) History of cervical spinal surgery ?Z98.890 - Other specified postprocedural states (ICD-10) History of bilateral cataract extraction ?Z98.41 - Cataract extraction status, right eye (ICD-10) ?Z98.42 - Cataract extraction status, left eye (ICD-10) Family History Father Osteoarthritis Mother Uterine cancer Social History Narrative: Does not use illicit drugs Former smoker, quit 1974 , Going through divorce November 2019; 25 years No history of alcohol use Smoking Status: Never smoker Exam Narrative: Exam Narrative: Pleasant. NAD. Sitting hunched over chair. He transitions without notable difficulty. Breathing easily. Abdomen is generally tense but generally only mildly tender. No peritoneal signs. Take this as more chronic fullness of the abdomen. No flank pain. Breathing easily. Lungs are clear. Heart in regular rate and rhythm. Very active bowel sounds. Const: Vital Signs, click to edit/add: Vital Signs - 24 hr 04/13/25 11:40 Pulse Rate [Pulse Oximeter] 96 Respiratory Rate 20 Blood Pressure [Ri ght Upper Arm] 164/91 H Pulse Oximetry 93 Oxygen Delivery Me thod Room Air Documenting provider has reviewed patient's vital signs: yes Course Vital Signs Vital signs: Initial Vital Signs Temperature Source Temporal Artery Scan 04/13/25 11:40 Pulse Rate 96 04/13/25 11:40 Respiratory Rate 20 04/13/25 11:40 Blood Pressure 164/91 H 04/13/25 11:40 Blood Pressure Mean 115 H 04/13/25 11:40 Blood Pressure Position Sitting 04/13/25 11:40 Pulse Oximetry 93 04/13/25 11:40 Oxygen Delivery Method Room Air 04/13/25 11:40 Vital Signs Pulse Rate 96 04/13/25 11:40 Respiratory Rate 20 04/13/25 11:40 Blood Pressure 164/91 H 04/13/25 11:40 Pulse Oximetry 93 04/13/25 11:40 Oxygen Delivery Method Room Air 04/13/25 11:40 Temperature 96.9 F L 04/13/25 12:56 Pulse Rate 83 04/13/25 14:00 Respiratory Rate 20 04/13/25 11:40 Blood Pressure 134/93 H 04/13/25 13:46 Pulse Oximetry 94 04/13/25 14:00 Oxygen Delivery Method Room Air 04/13/25 11:40 Medications Administered Medications: Discontinued Medications Generic Name Dose Route Start Last Admin Trade Name Karen PRN Reason Stop Dose Admin Miscellaneous Medication 376 ml 04/13/25 13:32 04/13/25 14:19 Doc/Min Oil/Mag Cit/Sod Phos 376 Ml Enema RI 04/13/25 13:33 376 ml ONCE ONE Administration Ondansetron HCl 4 mg 04/13/25 12:49 04/13/25 12:52 Ondansetron 2 Mg/Ml Inj IVP 04/13/25 12:50 4 mg ONCE ONE Administration Medical Decision Making MDM Narrative Medical decision making narrative: This is some combination with constipation. Maybe an ileus. He does not recall the last time he experienced flatus just noting that he had water out which is I think representing his Fleet's. Could be bowel obstruction. Diverticulitis of course is differential as well. History of diabetes but I do not know that he has a history of gastroparesis. I think at this point I would check labs to suggest further indication of diverticulitis. Would also do flat and upright for degree of SBO versus just constipation. Given Zofran for some nausea. Two-view abdomen x-ray independently reviewed by me shows good deal of stool but maybe less so in the pelvis. I do not see air-fluid levels to indicate obstruction. Labs are with minimal elevation in white count. And CRP is elevated. Not inconsistent with diverticulitis per his concern. It is apparent that he would like possibility of having a bowel movement before he leaves the emergency department. Would like some help with that. Indication: Abdomen pain, constipation Technique: Abdomen 2 view. Comparison: None. Findings: Nonobstructed bowel-gas pattern with moderate colonic fecal retention. No air-fluid levels or pneumoperitoneum on upright film. S shaped curvature of the lumbar spine. Postoperative changes of the spine. Impression: Nonobstructed bowel-gas pattern with moderate colonic fecal retention. Dictated by Sabino Nails MD @ 04/13/2025 12:48:56 PM Subsequently placed pink lady large volume enema. No significant result obtained. Given Mag citrate to potentially take tonight. Otherwise well. No worsening of pain. No fever over period of time of monitoring in the emergency department. Stable vitals. See patient discharge plan for further discussion When you get home, consider drinking half a bottle of this magnesium citrate to help move your bowels. And if no significant resolve by morning, drink the other half. You could drink the whole bottle if you prefer. Focus on staying well hydrated. Your labs do indicate that there is some inflammatory change and given your history I am inclined to go ahead and treat for diverticulitis. Prescribing ciprofloxacin and metronidazole from [facility]. Consider taking MiraLax equivalent 2-3 times daily, each dose dissolve in at least 8 oz of liquid, over the next 1-2 weeks. Adjust dosing frequency to stool consistency. Return for marked increase in persistent pain, associated fever, repeated vomiting. Medical Records Medical records reviewed: Yes I reviewed the patient's medical records Lab Data Labs: Lab Results 04/13/25 Range/Units 12:30 WBC 11.06 H (4.50-11.00) K/uL RBC 5.12 (4.30-5.90) m/uL Hgb 13.9 (13.5-17.5) gm/dL Hct 44.6 (37.0-53.0) % MCV 87 (80-100) fL MCH 27 (26-34) pg MCHC 31 L (32-36) gm/dL RDW Coeff of Kevin 14.3 (11.5-15.5) % Plt Count 275 (140-440) K/uL Neut % (Auto) 83.0 H (42.0-72.0) % Lymph % (Auto) 10.9 L (20-44) % [place] % (Auto) 5.7 (0.0-11.0) % Eos % (Auto) 0.0 (0.0-7.0) % Baso % (Auto) 0.1 (0.0-3.0) % Neut # (Auto) 9.20 H (1.7-7.0) K/uL Lymph # (Auto) 1.20 (0.90-2.90) K/uL [place] # (Auto) 0.60 (0.00-0.90) K/UL Eos # (Auto) 0.00 (0.00-0.50) K/uL Baso # (Auto) 0.00 (0.00-0.30) K/uL Abs Immat Gran (auto) 0.00 (0.00-0.30) K/uL Imm/Tot Granulo (auto) 0.3 % Sodium 135 (135-149) mmol/L Potassium 4.4 (3.6-5.1) mmol/L Chloride 94 L (96-114) mmol/L Carbon Dioxide 29 (20-32) mmol/L Anion Gap 12 (7-15) mEq/L BUN 24 (7-30) mg/dL Creatinine 1.0 (0.5-1.5) mg/dL Estimated Creat Clear 57.00 Estimated GFR 76 ml/min Glucose 184 H (60-115) mg/dL Calcium 9.2 (8.4-10.6) mg/dL C-Reactive Protein 11.7 H (0.5-1.0) mg/dL Lipase 18 L (23-300) U/L Discharge Plan Discharge Clinical Impression: Abdominal pain, Diverticulitis, Constipation Patient Disposition: Home w/ Parent or Adult Condition: Stable Additional Instructions: When you get home, consider drinking half a bottle of this magnesium citrate to help move your bowels. And if no significant resolve by morning, drink the other half. You could drink the whole bottle if you prefer. Focus on staying well hydrated. Your labs do indicate that there is some inflammatory change and given your history I am inclined to go ahead and treat for diverticulitis. Prescribing ciprofloxacin and metronidazole from [facility]. Consider taking MiraLax equivalent 2-3 times daily, each dose dissolve in at least 8 oz of liquid, over the next 1-2 weeks. Adjust dosing frequency to stool consistency. Return for marked increase in persistent pain, associated fever, repeated vomiting. Prescriptions: No Action rizatriptan 10 mg tablet 10 mg PO .Once as needed PRN oxycodone 5 mg tablet 5 mg PO BID PRN (Reason: pain) Qty: 30 0RF cephalexin 500 mg capsule 500 mg PO 3XD methocarbamol 500 mg tablet 500 mg PO TID lisinopril-hydrochlorothiazide 20-12.5 mg tablet 1 tab PO QDAY Qty: 180 3RF gabapentin 300 mg capsule 300 mg PO 3XD Qty: 90 5RF famotidine [Acid Strapper And Buffer (famotidine)] 20 mg tablet 20 mg PO QHS Qty: 90 3RF Excedrin Migraine 250-250-65 mg tablet 2 tab PO Q6H PRN metformin 500 mg tablet extended release 24 hr 500 mg PO BID Qty: 180 3RF dutasteride 0.5 mg capsule 0.5 mg PO QDAY Qty: 90 2RF atorvastatin 40 mg tablet 40 mg PO QHS Qty: 90 2RF sertraline 100 mg tablet 200 mg PO DAILY Qty: 180 1RF pantoprazole 20 mg tablet,delayed release (DR/EC) 20 mg PO QDAY Qty: 90 1RF bupropion HCl 150 mg tablet sustained-release 12 hr 150 mg PO DAILY Qty: 90 0RF Rx Instructions: Take 1 tab in the morning. ondansetron HCl 4 mg tablet 4 mg PO BID PRN (Reason: nausea and vomiting) Qty: 90 1RF alprazolam [Xanax] 0.5 mg tablet 0.5 mg PO BID PRN (Reason: anxiety) Qty: 135 1RF Follow Up/Referrals: Stevan Keith MD [Primary Care Provider, Family Practice] Stand Alone Forms: [facility] Info Instructions
--- NOTE | 2025-04-13 12:15 | CRLHL7_ITS ---
For Patients: As a result of the Century Cures Act, medical imaging exams and procedure reports are released immediately into your electronic medical record. You may view this report before your referring provider. If you have questions, please contact your health care provider. Indication: Abdomen pain, constipation Technique: Abdomen 2 view. Comparison: None. Findings: Nonobstructed bowel-gas pattern with moderate colonic fecal retention. No air-fluid levels or pneumoperitoneum on upright film. S shaped curvature of the lumbar spine. Postoperative changes of the spine. Impression: Nonobstructed bowel-gas pattern with moderate colonic fecal retention. Dictated by Sabino Nails MD @ 04/13/2025 12:48:56 PM (Electronically Signed)
[2025-04-13] MEDS: ONDANSETRON 2 MG/ML inj 4 MG IVP (12:52)
[2025-04-13 12:55] LABS: Chloride* 94 mmol/L (96-114); Sodium* 135 mmol/L (135-149)
[2025-04-13 12:56] LABS: Potassium* 4.4 mmol/L (3.6-5.1)
[2025-04-13 12:58] LABS: Blood Urea Nitrogen* 24 mg/dL (7-30); Creatinine* 1.0 mg/dL (0.5-1.5); Est. Creatinine Clearance* 57.00; Estimated Glomerular Filt Rate 76 ml/min; Hematocrit* 44.6 % (37.0-53.0); Hemoglobin* 13.9 gm/dL (13.5-17.5); Immature Granulocytes Pct Auto 0.3 %; Mean Corpuscular HGB Conc 31 gm/dL (32-36); Mean Corpuscular Hemoglobin 27 pg (26-34); Mean Corpuscular Volume 87 fL (80-100); RDW Coefficient of Variation % 14.3 % (11.5-15.5); Red Blood Count* 5.12 m/uL (4.30-5.90); White Blood Count* 11.06 K/uL (4.50-11.00)
[2025-04-13 12:59] LABS: Anion Gap 12 mEq/L (7-15); Calcium* 9.2 mg/dL (8.4-10.6); Carbon Dioxide* 29 mmol/L (20-32); Glucose* 184 mg/dL (60-115)
[2025-04-13 13:05] LABS: Immature Granulocytes Abs Auto 0.00 K/uL (0.00-0.30); Lymphocytes Absolute Auto 1.20 K/uL (0.90-2.90); Slide Review Reflex No
[2025-04-13] MEDS: DOC/MIN OIL/MAG CIT/SOD PHOS 376 ML ENEMA PR (14:19)
== END 2025-04-13 15:14 | disposition home or self-care (01) ==
PROVIDERS: Emergency Provider Family Medicine; PCP Family Medicine
DX: R10.9 Unspecified abdominal pain (principal); K57.92 Diverticulitis of intestine, part unspecified, without perforation or abscess without bleeding; K59.00 Constipation, unspecified
CPT/HCPCS: 36415; 74019; 80048; 83690; 85025; 86140; 96374; 99284; J2405